=== PATIENT | male | born 1950 | race Caucasian/White ===

== ENCOUNTER 2018-09-03 22:04 | Inpatient (IN) | payer MEDICARE, OTHER ==
--- NOTE | 2018-09-03 22:48 | ED Physician Chart ---
ED Chief Complaint/HPI - Patient Information Date Seen:: 09/03/18 Time Seen:: 22:40 Chief Complaint:: increased agitation History of Present Illness:: Patient is apparently been demonstrating increased agitation at his extended care facility Allergies:: Allergies Allergy/AdvReac Type Severity Reaction Status Date / Time iodine Allergy Verified 09/03/18 22:17 Sulfa (Sulfonamide Allergy Verified 09/03/18 22:17 Antibiotics) Vitals:: Vital Signs - 8 hr 09/03/18 22:05 Temp 98.2 F HR 104 RR 18 BP 118/69 O2 Sat % 97 Historian:: Patient Review:: Transfer documents Reviewed ED Review of Systems - Review of Systems General/Constitutional: No fever, No chills, No weight loss, No weakness, No diaphoresis, No edema, No loss of appetite Skin: No skin lesions, No rash, No bruising Head: No headache, No light-headedness Eyes: No loss of vision, No pain, No diplopia ENT: No earache, No nasal drainage, No sore throat, No tinnitus Neck: No neck pain, No swelling, No thyromegaly, No stiffness, No mass noted Cardio Vascular: No chest pain, No palpitations, No PND, No orthopnea, No edema Pulmonary: No SOB, No cough, No sputum, No wheezing GI: No nausea, No vomiting, No diarrhea, No pain, No melena, No hematochezia, No constipation, No hematemesis G/U: No dysuria, No frequency, No hematuria Musculoskeletal: No bone or joint pain, No back pain, No muscle pain Endocrine: No polyuria, No polydipsia Psychiatric: Prior psych history, No depression, No anxiety, No suicidal ideation Hematopoietic: No bruising, No lymphadenopathy Allergic/Immuno: No urticaria, No angioedema Neurological: No syncope, No focal symptoms, No weakness, No paresthesia, No headache, No seizure, No dizziness, No confusion, No vertigo ED Past Medical History - Past Medical History Past Medical History: Other (atherosclerotic heart disease; status post urinary tract infection; unstable angina; psychosis; 9 prostatic hypertrophy; as her heart failure; osteoarthritis; :; Striated; anxiety; insomnia; COPD; her; IV; major depression; hypertension; chronic atrial fibrillation; that is post myocardial infarction) Family History: Heart disease Social History: Non Smoker, Other (drank alcohol formerly) Surgical History: other (respiratory artery stents) Psychiatricy History: Depression, Bipolar Medication: Reviewed Family Medical History - Family Member Mother History Unknown: Yes ED Physical Exam - Physical Examination General/Constitutional: Awake, Well-developed, well-nourished, Alert, No distress, GCS 15, Non-toxic appearing, Ambulatory Other Gen/Cons comments:: Patient is alert and oriented to near the exact date Head: Atraumatic Eyes: Lids, conjuctiva normal, PERRL, EOMI Skin: Nl inspection, No rash, No skin lesions, No ecchymosis, Well hydrated, No lymphadenopathy ENMT: External ears, nose nl, Nasal exam nl, Lips, teeth, gums nl Neck: Nontender, Full ROM w/o pain, No JVD, No nuchal rigidity, No bruit, No mass, No stridor Respiratory: Nl effort/Exclusion, Clear to Auscultation, No Wheeze/Rhonchi/Rales Cardio Vascular: RRR, No murmur, gallop, rubs, NL S1 S2 GI: No tenderness/rebounding/guarding, No organomegaly, No hernia, Normal BS's, Nondistended, No mass/bruits, No McBurney tenderness : No CVA tenderness Extremities: No tenderness or effusion, Full ROM, normal strength in all extremities, Normal digits & nails Other Extremities comments:: 2 out of 4 pretibial pitting edema Neuro/Psych: Alert/oriented, DTR's symmetric, Normal sensory exam, Normal motor strength, Judgement/insight normal, Mood normal, Normal gait, No focal deficits Misc: Normal back, No paraspinal tenderness ED Labs/Radiology/EKG Results - Lab Results Results: Abnormal Lab Results 09/03/18 09/03/18 23:05 23:05 WBC 10.1 RBC 4.44 Hgb 12.8 Hct 40.0 L MCV 90.1 MCH 28.8 MCHC Differential 32.0 RDW 15.0 Plt Count 200 MPV 8.9 Neutrophils % 62.2 Lymphocytes % 25.1 Monocytes % 8.0 Eosinophils % 4.1 Basophils % 0.6 Sodium 139 Potassium 4.0 Chloride 102 Carbon Dioxide 27.6 Anion Gap 13.4 BUN 32 H Creatinine 1.4 H Est GFR ( Amer) > 60.0 Est GFR (Non-Af Amer) 53.6 BUN/Creatinine Ratio 22.9 Glucose 131 H Calcium 9.2 Total Bilirubin 0.5 AST 22 ALT 14 Alkaline Phosphatase 145 H Total Protein 6.9 Albumin 3.3 L Globulin 3.6 Albumin/Globulin Ratio 0.9 L Triglycerides 98 Cholesterol 113 LDL Cholesterol Direct 70 L HDL Cholesterol 26 Salicylates < 25.0 L Acetaminophen < 10.0 L Ethyl Alcohol < 10 - EKG Interpretations Rate & Rhythm: atrial fibrillation with a rate of 84 [place]: normal ED Septic Shock - . Is Septic Shock (SBP<90, OR Lactate>4 mmol\L) present?: No - <6hrs of presentation: Vital Signs: Vital Signs - 8 hr 09/03/18 22:05 Temp 98.2 F HR 104 RR 18 BP 118/69 O2 Sat % 97 ED Reassessment (Disposition) - Diagnosis Diagnosis:: Aggressive behavior; atrial fibrillation - Patient Disposition Admitted to:: [facility] Admitting Medical Physician:: Guido Banerjee Admitting Psych Physician:: Noé Dallas Condition at Disposition:: Stable, Unchanged
[2018-09-03 23:12] LABS: % BASOPHILS 0.6 % (0.0-2.0); % EOSINOPHILS 4.1 % (0.0-5.0); % LYMPHOCYTES 25.1 % (20.0-50.0); % NEUTROPHILS 62.2 % (40.0-80.0); BASOPHILE ABSOLUTE 0.1 Th/cumm (0-0.2); EOSINOPHILE ABSOLUTE 0.4 Th/cmm (0.1-0.4); HEMOGLOBIN 12.8 gm/dL (12-16); LYMPHOCYTE ABSOLUTE 2.5 Th/cmm (1.5-3.0); MEAN CELL VOLUME 90.1 fl (80-99); MEAN CORPUSCULAR HEMOGLOBIN 28.8 pg (27.0-31.0); MEAN PLATELET VOLUME 8.9 fl; MONOCYTE ABSOLUTE 0.8 Th/cmm (0.3-1.0); NEUTROPHILE ABSOLUTE 6.3 Th/cmm (1.8-8.0); PLATELET COUNT 200 Th/cmm (150-400); RED BLOOD COUNT 4.44 Mil/cmm (3.80-5.80); WHITE BLOOD COUNT 10.1 Th/cmm (4.8-10.8)
[2018-09-03 23:33] LABS: ALB/GLOB RATIO 0.9 (1.0-1.8); ALBUMIN 3.3 gm/dL (4.2-5.5); ALKALINE PHOSPHATASE 145 U/L (34-104); ANION GAP 13.4 (7.0-16.0); BILIRUBIN,TOTAL 0.5 mg/dL (0.3-1.0); BUN - UREA NITROGEN 32 mg/dL (7-25); CALCIUM SERUM 9.2 mg/dL (8.6-10.3); CARBON DIOXIDE 27.6 mEq/L (21.0-31.0); CHLORIDE 102 mEq/L (98-107); CHOLESTEROL 113 mg/dL (<200); CREATININE - SERUM 1.4 mg/dL (0.7-1.3); GFR AFRICAN-AMERICAN > 60.0 ml/min (>90); GFR NON AFRICAN-AMERICAN 53.6 ml/min; GLUCOSE 131 mg/dL (70-105); HDL -HIGH DENSITY LIPOPROTEIN 26 mg/dL (23-92); SGOT 22 U/L (13-39); SGPT/ALT 14 U/L (7-52); SODIUM SERUM 139 mEq/L (136-145); TOTAL PROTEIN,SERUM 6.9 gm/dL (6.0-8.3); TRIGLYCERIDES 98 mg/dL (<150)
[2018-09-03 23:35] LABS: ACETAMINOPHEN < 10.0 ug/mL (10.0-30.0); SALICYLATES (ASPIRIN) < 25.0 mg/L (30.0-100.0)
[2018-09-04 01:52] VITALS: BP 104/73
[2018-09-04] MEDS: DICLOFENAC 0.1% RIGHT EYE SCH ×4 (08:59→20:55)
[2018-09-04] MEDS: Ferrous Sulfate 325 MG TAB PO SCH (08:59)
[2018-09-04] MEDS ORDERED: Non-Formulary Item 1 EA (Cranberry [Cranberry] 450 MG) PO SCH (09:00)
[2018-09-04] MEDS: Polyvinyl Alcohol Ophth Soln 15 mL Bottle EACH EYE SCH ×2 (09:00→17:22)
[2018-09-04] MEDS ORDERED: Non-Formulary Item 1 EA (Apixaban [Eliquis] 5 MG) PO SCH (09:00)
[2018-09-04] MEDS: INSULIN LISPRO 100 UNIT/ML VIAL SUBQ SCH ×3 (12:21→20:50)
--- NOTE | 2018-09-04 12:46 | History & Physical ---
ADMIT DATE: 09/03/2018 IDENTIFYING INFORMATION: The patient is a 68-year-old years old male. CHIEF COMPLAINT: "I have shoulder pain." HISTORY OF PRESENT ILLNESS: The patient was referred from a nursing facility because of agitation. The patient was a poor historian. He knew he came from a nursing facility, but he believes he is here because of his shoulder pain. He is unpredictable, impulsive, demented, confused, though he is able to tell me the date, being either 09/06/2018 or 09/07/2018. He does not know the reason why he is here. He knows he is in the hospital because of shoulder pain. He believes he came from [facility] and that he lives there with his . He admits, however, to hearing voices. He said his sleep and appetite varies. He was smelly, looking disheveled, disorganized, internally preoccupied. PAST PSYCHIATRIC HISTORY: Dementia, unable to give more information. MEDICAL HISTORY: Atrial fibrillation. ALLERGIES: THE PATIENT IS ALLERGIC TO IODINE, SULFA ANTIBIOTICS. FAMILY AND SOCIAL HISTORY: The patient has been twice, recently for 6 months. He said he has 3 children. Unable to tell me the ages. He is unable to tell me what he did for living. 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 Denies substance abuse; ____, stopped it 5 years ago; however, he is a poor historian. Denies family psychotic disorder. MENTAL STATUS EXAMINATION: The patient is appropriately dressed, not very well groomed. He was smelly. He was alert. He was able tell me the date roughly and he was able to tell me his age, but he admits to hearing voices, nonspecific. No command hallucinations, unable to tell me the cmo & president. Concentration is poor. Unable to answer questions appropriately at times and spell his name. His insight about his illness is poor. He believes he is here because of shoulder pain. Judgment is poor. He has agitation. IMPRESSION: Bipolar disorder with psychosis. MEDICAL DIAGNOSES: Diabetes mellitus, hyperlipidemia, anemia, chronic pain, degenerative joint disease, gout. PLAN: The patient will be continued with medication. We will adjust medication as needed. He is on Seroquel and Lexapro. We will do group therapy, milieu therapy, and individual therapy. ESTIMATED LENGTH OF STAY: 3-7 days. DISCHARGE CRITERIA: Decreasing psychosis, agitation. After discharge, outpatient treatment. JOB# [id number]
[2018-09-04] MEDS ORDERED: Albuterol/Ipratropium Neb 3 ML AERS HHN PRN (13:47)
--- NOTE | 2018-09-04 14:23 | History & Physical ---
ADMIT DATE: 09/04/2018 This is the coverage for Dr. Guido Banerjee. REASON FOR CONSULTATION: Include multiple medical problems including chronic obstructive pulmonary disease, congestive heart failure, hypertension with chronic kidney disease stage 3, hyperlipidemia, gastroesophageal reflux disease, benign prostatic hypertrophy, dementia, psychosis, old [place], anxiety, and gout. HISTORY OF PRESENT ILLNESS: The patient is a 68-year-old gentleman, resident of [facility], admitted to the Geropsych Unit, and medical consultation requested by Dr. Dallas for multiple medical problems as mentioned above. The patient is currently lying in a bed. He denies any headache, no chest pain, no abdominal pain. The patient denies any leg pain and leg appear slightly edematous. The patient denies any palpitation passing out. Appetite is fair and denies any nausea, vomiting, diarrhea, or melena. No hematuria. No bright red blood per rectum. No rashes. No joint pain or swelling. PAST MEDICAL HISTORY: As mentioned above. ALLERGIES: IODINE AND SULFA. MEDICATIONS: Include allopurinol 100 mg once a day, Lipitor 60 mg at bedtime, Plavix 75 once a day, Voltaren eye drops twice a day, Colace 100 mg twice a day, Lexapro 40 mg once a day, iron 325 mg once a day, Nystop powder twice a day, and Seroquel 50 mg twice a day. FAMILY HISTORY: Noncontributory. REVIEW OF SYSTEMS: See the history of presenting illness. PHYSICAL EXAMINATION: VITAL SIGNS: Height 1.68 meter, weight 81.6 kg, BMI 29.1, temperature 97.8, afebrile, pulse 86 and regular, respiratory rate is 20, blood pressure 110/73, room air oxygen saturation 98%. HEENT: Unremarkable. NECK: Short and thick. LUNGS: Clear. CARDIOVASCULAR: S1, S2 normal limit. ABDOMEN: Obese, otherwise benign. EXTREMITIES: 1+ edema noted. Dorsalis pedis palpable. CENTRAL NERVOUS SYSTEM: No clubbing, cyanosis, or synovitis. LABORATORY TESTS: WBC 10,000, hemoglobin is 12.8, MCV 90, and a platelet count of 200,000, neutrophils 62% neutrophils, 62%. Sodium 139, potassium 4.0, chloride 102, bicarbonate 27, BUN 32, creatinine 1.4 and a glucose of 131, calcium 9.2, albumin 3.3. Cholesterol 113, triglyceride 98, HDL 26, LDL 113. TSH normal at 1.5. Serum salicylic and atenolol level and alcohol level are all essentially not detectable. ASSESSMENT AND PLAN: 1. Chronic obstructive pulmonary disease, currently stable on duoneb HHN 2. Congestive heart failure, currently compensated on lasix 3. Hypertension with chronic kidney disease continous current treatments 4. Clinical monitoring. 5. Hyperlipidemia. Continue Lipitor 60 once a day. 6. Dementia with psychosis. Further plan per Dr. Dallas. 7. Benign prostatic hypertrophy. Monitor urine output.cont flowmax and proscar 8. Gastroesophageal reflux, currently stable on protonix 40mg po q day 9. Gout. Continue allopurinol 100 once a day. 10. Exogenous obesity with a BMI 29.1. Continue to reduce calorie diet. Dr. Banerjee will follow this patient from 1014. JOB# [id number] MTDD
[2018-09-04] MEDS ORDERED: INSULIN LISPRO 100 UNIT/ML VIAL SUBQ SCH (17:00)
[2018-09-04] MEDS: Atorvastatin Calcium 10 MG TAB PO SCH (20:50)
[2018-09-05] MEDS: Pantoprazole 40 mg EC Tab PO SCH (06:43)
[2018-09-05] MEDS: INSULIN LISPRO 100 UNIT/ML VIAL SUBQ SCH (06:44)
[2018-09-05] MEDS: DICLOFENAC 0.1% RIGHT EYE SCH ×4 (08:00→21:01)
[2018-09-05] MEDS: Multivitamin w/ Minerals Tab PO SCH (09:21)
[2018-09-05] MEDS: Ferrous Sulfate 325 MG TAB PO SCH (09:25)
[2018-09-05] MEDS: Potassium Chloride 20 mEq ER Tab PO SCH ×2 (09:25→09:26)
[2018-09-05] MEDS: Insulin Detemir 100 units/mL 10mL Vial SUBQ SCH (09:55)
[2018-09-05] MEDS: Rivastigmine 9.5 mg/24 hr Tdm TD SCH (10:20)
[2018-09-05] MEDS: INSULIN ASPART, RECOMBINANT 100 UNITS/ML SUBQ SCH ×2 (10:21→17:31)
[2018-09-05] MEDS: Polyvinyl Alcohol Ophth Soln 15 mL Bottle EACH EYE SCH ×2 (10:40→17:50)
[2018-09-05] MEDS: INSULIN ASPART SLIDING SCALE 100 UNITS/ML UNIT SUBQ SCH ×3 (12:32→21:02)
[2018-09-05] MEDS: NYSTATIN 100000 UNITS/GM POWD TP PRN (13:08)
[2018-09-05] MEDS: Atorvastatin Calcium 10 MG TAB PO SCH (21:01)
--- NOTE | 2018-09-06 01:06 | Progress Notes ---
DATE: 09/05/2018 SUMMARY: Case was discussed with staff of the patient and reviewed records. The patient continues to be internally preoccupied. He continues to be unable to tell me why he is here. He believes he was here because of shoulder pain. He is demented, confused, unpredictable, impulsive, and unable to make safe plan for his self-care. He is demented and confused. He has been compliant with the medication with no side effects, no sedation, no nausea, and no extrapyramidal symptoms. He is on Seroquel 50 mg twice a day. We will continue to have the patient in group therapy, milieu therapy, and adjust the medications as needed. JOB# [id number]
[2018-09-06] MEDS: INSULIN ASPART SLIDING SCALE 100 UNITS/ML UNIT SUBQ SCH ×4 (06:39→20:55)
[2018-09-06] MEDS: Pantoprazole 40 mg EC Tab PO SCH (06:39)
[2018-09-06] MEDS: INSULIN ASPART, RECOMBINANT 100 UNITS/ML SUBQ SCH ×2 (08:34→17:30)
[2018-09-06] MEDS: Multivitamin w/ Minerals Tab PO SCH (10:00)
[2018-09-06] MEDS: Polyvinyl Alcohol Ophth Soln 15 mL Bottle EACH EYE SCH ×2 (10:00→17:29)
[2018-09-06] MEDS: Ferrous Sulfate 325 MG TAB PO SCH (10:00)
[2018-09-06] MEDS: DICLOFENAC 0.1% RIGHT EYE SCH ×4 (10:00→21:26)
[2018-09-06] MEDS: Insulin Detemir 100 units/mL 10mL Vial SUBQ SCH (10:00)
[2018-09-06] MEDS: Potassium Chloride 20 mEq ER Tab PO SCH (10:00)
[2018-09-06] MEDS: Rivastigmine 9.5 mg/24 hr Tdm TD SCH (10:04)
[2018-09-06] MEDS: NYSTATIN 100000 UNITS/GM POWD TP PRN (17:29)
[2018-09-06] MEDS: Atorvastatin Calcium 10 MG TAB PO SCH (20:38)
--- NOTE | 2018-09-06 21:16 | Progress Notes ---
DATE: 09/06/2018 Case was discussed with staff of the patient, reviewed records. The patient continues to be unpredictable, impulsive. He continues to not know why he is here. Continues to have poor insight. Unable to make safe plan for self-care with episodes of agitation and irritability. He is compliant with the medication with no side effects, no sedation, no nausea, no extrapyramidal symptoms. He is on Lexapro and Seroquel 50 mg twice a day and Exelon patch 9.5 mg every 24 hours. We will continue to work with the patient in group therapy, milieu therapy, and adjust the medications as needed. JOB# [id number]
[2018-09-07] MEDS: Pantoprazole 40 mg EC Tab PO SCH (06:43)
[2018-09-07] MEDS: INSULIN ASPART SLIDING SCALE 100 UNITS/ML UNIT SUBQ SCH ×4 (06:49→20:50)
[2018-09-07] MEDS: Potassium Chloride 20 mEq ER Tab PO SCH (09:13)
[2018-09-07] MEDS: Ferrous Sulfate 325 MG TAB PO SCH (09:13)
[2018-09-07] MEDS: Multivitamin w/ Minerals Tab PO SCH (09:15)
[2018-09-07] MEDS: Polyvinyl Alcohol Ophth Soln 15 mL Bottle EACH EYE SCH ×2 (09:17→16:41)
[2018-09-07] MEDS: INSULIN ASPART, RECOMBINANT 100 UNITS/ML SUBQ SCH ×2 (09:38→16:47)
[2018-09-07] MEDS: Insulin Detemir 100 units/mL 10mL Vial SUBQ SCH (09:39)
[2018-09-07] MEDS: Rivastigmine 9.5 mg/24 hr Tdm TD SCH (09:40)
[2018-09-07] MEDS: DICLOFENAC 0.1% RIGHT EYE SCH ×4 (09:40→21:00)
--- NOTE | 2018-09-07 16:07 | Progress Notes ---
DATE: 09/07/2018 MEDICAL PROGRESS NOTE IDENTIFICATION: A 68-year-old. SUBJECTIVE: The patient seen and examined. The patient was admitted on 09/04/2018 for psychotic disorder exacerbation at this time. The patient has medical problem. The patient has periods of agitation and irritability, which required adjustment of his psychotropic medication. The patient does have significant medical problem. Discussed with nursing staff about their concerns. MEDICATIONS: Medication administration record has been reviewed. PHYSICAL EXAMINATION: VITAL SIGNS: Temperature 98.50, pulse is 105, respiratory rate 16, and blood pressure 104/67. HEENT: No facial asymmetry. NECK: Supple, no JVD. HEART: Regular. CHEST AND LUNGS: Equal in expansion, no expiratory wheezing. ABDOMEN: Soft. No guarding. No rigidity. Liver, spleen palpable. No palpable mass. EXTREMITIES: No edema, no cyanosis. NEUROLOGIC: Alert, awake, follows commands. CLINICAL IMPRESSION: 1. Psychotic disorder exacerbation. 2. Alzheimer's type dementia. 3. Benign prostatic hypertrophy. 4. Coronary artery disease. 5. Hypertension. 6. Hyperlipidemia. 7. Seizure disorder. 8. Diabetes mellitus. 9. Degenerative joint disease. 10. Congestive heart failure. 11. Depression. 12. Gout. PLAN: 1. Psychotic evaluation and management deferred to psychiatrist. 2. Continue Exelon as prescribed. 3. PRN inhalation therapy. 4. Lasix since report of congestive heart failure, which is well compensated. Continue Zyloprim for the gout. Continue Lipitor for hyperlipidemia. Continue provide medical management for coronary artery disease, which includes Plavix, beta nirmala as well as Imdur. Continue to provide Proscar and Flomax for BPH, diabetes management with sliding scale insulin and basal insulin therapy. 5. Continue to provide seizure medication and seizure precautions, general nursing care, fall precautions, nutritional support, and we will continue to follow this patient during the stay in the hospital. JOB# [id number]
[2018-09-07] MEDS: Atorvastatin Calcium 10 MG TAB PO SCH (20:40)
[2018-09-08 06:27] LABS: % BASOPHILS 0.7 % (0.0-2.0); % EOSINOPHILS 3.6 % (0.0-5.0); % LYMPHOCYTES 29.4 % (20.0-50.0); % MONOCYTES 10.8 % (2.0-10.0); % NEUTROPHILS 55.5 % (40.0-80.0); BASOPHILE ABSOLUTE 0.1 Th/cumm (0-0.2); EOSINOPHILE ABSOLUTE 0.3 Th/cmm (0.1-0.4); HEMATOCRIT 40.9 % (41.0-60); HEMOGLOBIN 13.3 gm/dL (12-16); LYMPHOCYTE ABSOLUTE 2.9 Th/cmm (1.5-3.0); MEAN CELL VOLUME 89.2 fl (80-99); MEAN CORPUSCULAR HGB CONC 32.5 pg (28.0-36.0); MEAN PLATELET VOLUME 9.3 fl; NEUTROPHILE ABSOLUTE 5.4 Th/cmm (1.8-8.0); PLATELET COUNT 175 Th/cmm (150-400); RED BLOOD COUNT 4.58 Mil/cmm (3.80-5.80); WHITE BLOOD COUNT 9.7 Th/cmm (4.8-10.8)
[2018-09-08 06:39] LABS: ALB/GLOB RATIO 0.9 (1.0-1.8); ALBUMIN 3.4 gm/dL (4.2-5.5); ALKALINE PHOSPHATASE 167 U/L (34-104); BILIRUBIN,TOTAL 0.6 mg/dL (0.3-1.0); BUN - UREA NITROGEN 29 mg/dL (7-25); CALCIUM SERUM 9.5 mg/dL (8.6-10.3); CARBON DIOXIDE 26.9 mEq/L (21.0-31.0); CHLORIDE 103 mEq/L (98-107); CREATININE - SERUM 1.4 mg/dL (0.7-1.3); GFR AFRICAN-AMERICAN > 60.0 ml/min (>90); GFR NON AFRICAN-AMERICAN 53.6 ml/min; GLUCOSE 144 mg/dL (70-105); POTASSIUM SERUM 3.9 mEq/L (3.5-5.1); SGOT 21 U/L (13-39); SGPT/ALT 14 U/L (7-52); SODIUM SERUM 139 mEq/L (136-145)
[2018-09-08] MEDS: Pantoprazole 40 mg EC Tab PO SCH (06:39)
[2018-09-08] MEDS: INSULIN ASPART SLIDING SCALE 100 UNITS/ML UNIT SUBQ SCH ×4 (07:30→20:36)
[2018-09-08] MEDS: Rivastigmine 9.5 mg/24 hr Tdm TD SCH (09:00)
[2018-09-08] MEDS: INSULIN ASPART, RECOMBINANT 100 UNITS/ML SUBQ SCH ×2 (09:00→16:47)
[2018-09-08] MEDS: Insulin Detemir 100 units/mL 10mL Vial SUBQ SCH (09:18)
[2018-09-08] MEDS: Potassium Chloride 20 mEq ER Tab PO SCH (09:48)
[2018-09-08] MEDS: Ferrous Sulfate 325 MG TAB PO SCH (09:49)
[2018-09-08] MEDS: Multivitamin w/ Minerals Tab PO SCH (09:54)
[2018-09-08] MEDS: Polyvinyl Alcohol Ophth Soln 15 mL Bottle EACH EYE SCH ×2 (10:03→16:35)
[2018-09-08] MEDS: DICLOFENAC 0.1% RIGHT EYE SCH ×4 (10:45→21:00)
[2018-09-08] MEDS ORDERED: Acetaminophen 500 MG TAB PO PRN (14:43)
[2018-09-08] MEDS: Atorvastatin Calcium 10 MG TAB PO SCH (20:29)
--- NOTE | 2018-09-08 22:06 | Progress Notes ---
DATE: 09/07/2018 SUBJECTIVE: Chart reviewed and the patient interviewed. Also discussed the patient's condition with the staff and reviewed records and labs. The patient is still guarded and is still withdrawn. The patient also is still suspicious and has been paranoid. He also still needs lots of redirections. Otherwise, the patient is compliant with taking his medications. ASSESSMENT: The patient is still agitated and irritable and unable to provide any safe plan for self-care. TREATMENT PLAN: Continue to monitor his behavior and his condition closely. The patient also continued to take Lexapro and will adjust the dose because it is seemed that he is taking high dose of Lexapro and is not clear to me the reason. Also, we will continue to monitor his behavior closely. Also, continue Seroquel in a dose of 50 mg at bedtime as well as Exelon patch. JOB# [id number]
--- NOTE | 2018-09-08 23:52 | Progress Notes ---
DATE: 09/08/2018 Case was discussed with staff of the patient, reviewed records. The patient continues to be confused, easily agitated. Continues to have poor insight, unable to make safe plan for self-care. He is compliant with the medication with no side effects. Continues to have constant redirection and help with his ADLs. We will continue outpatient group therapy, milieu therapy, and adjust medications as needed. [facility]# [id number]
[2018-09-09] MEDS: Pantoprazole 40 mg EC Tab PO SCH (06:42)
[2018-09-09] MEDS: INSULIN ASPART SLIDING SCALE 100 UNITS/ML UNIT SUBQ SCH ×4 (06:46→21:11)
--- NOTE | 2018-09-09 07:06 | Progress Notes ---
DATE: 09/08/2018 SUBJECTIVE: The patient is seen and examined. No new event. Medication admission record is reviewed. OBJECTIVE: VITAL SIGNS: Temperature 97, pulse is 100, respiratory rate is 18, blood pressure is 138/84. HEENT: No facial asymmetry. NECK: Supple, no JVD. HEART: Regular. CHEST AND LUNGS: Equal in expansion, no expiratory wheezing. ABDOMEN: Soft. EXTREMITIES: No edema. Left shoulder has range of motions are limited and painful. AVAILABLE DIAGNOSTIC DATA: BUN and creatinine is 20 and 1.4. Glucoscan is reviewed. CBC is within normal limit. Chemistry panels are within normal limit. CLINICAL IMPRESSION: 1. Left shoulder pain. 2. Chronic kidney disease. 3. Diabetes mellitus. 4. Psychotic disorder exacerbation. 5. Degenerative joint disease. 6. Alzheimer's type dementia. 7. Benign prostatic hypertrophy. 8. Seizure disorder. 9. Congestive heart failure. 10. Depression. PLAN: Chronic kidney disease, remains stable. The patient does not need any acute intervention at this time as far as the left shoulder pain is concerned. We will obtain the x-rays of the left shoulder and pain management will be provided as well. The patient is to have continuation of other medication for his chronic illness as prescribed. Psychotic evaluation and management deferred to psychiatrist. The patient due to have seizure precautions for his underlying seizure medication as well as diabetes management with the Levemir insulin and sliding scale insulin. JOB# [id number]
--- NOTE | 2018-09-09 09:38 | Diagnostic Imaging Report ---
Left shoulder 2 views Indication: pain Comparison: none Findings: There is an impacted fracture of the left humeral head and neck which may extend to the articular surface. No gross dislocation. Degenerative changes are seen greatest at the AC joint. Mild surrounding soft tissue swelling is noted. Impression: Impacted fracture left humeral head and neck which may extend to the articular surface.
[2018-09-09] MEDS: Insulin Detemir 100 units/mL 10mL Vial SUBQ SCH (09:55)
[2018-09-09] MEDS: Multivitamin w/ Minerals Tab PO SCH (09:56)
[2018-09-09] MEDS: Potassium Chloride 20 mEq ER Tab PO SCH (09:57)
[2018-09-09] MEDS: INSULIN ASPART, RECOMBINANT 100 UNITS/ML SUBQ SCH ×2 (09:58→18:00)
[2018-09-09] MEDS: Rivastigmine 9.5 mg/24 hr Tdm TD SCH ×2 (09:58→10:00)
[2018-09-09] MEDS: Ferrous Sulfate 325 MG TAB PO SCH (09:58)
[2018-09-09] MEDS: Polyvinyl Alcohol Ophth Soln 15 mL Bottle EACH EYE SCH ×2 (09:58→17:11)
[2018-09-09] MEDS: DICLOFENAC 0.1% RIGHT EYE SCH ×4 (09:58→21:11)
[2018-09-09] MEDS: Atorvastatin Calcium 10 MG TAB PO SCH (21:11)
--- NOTE | 2018-09-09 21:24 | Progress Notes ---
DATE: 09/09/2018 PSYCHIATRIC PROGRESS NOTE SUBJECTIVE: Chart reviewed and the patient interviewed. Also discussed the patient's condition with the staff and reviewed records and labs. The patient is still confused and he is oriented to himself only. The patient also is still guarded and withdrawn and seems to be depressed. The patient also is compliant with taking his medications, but it seems that he has been taking a large amount of the Lexapro, which he is taking 40 mg a day, that might be part of his confusion because of high serotonin levels. At the same time, the patient is severely anxious. ASSESSMENT: The patient is still confused and anxious. TREATMENT PLAN: We will decrease Lexapro to 20 mg every day and continue Seroquel 50 mg twice a day. Also, we will add buspirone 5 mg twice a day and will continue to follow up. JOB# [id number]
--- NOTE | 2018-09-09 22:55 | Progress Notes ---
DATE: 09/09/2018 SUBJECTIVE: The patient seen and examined. The patient is lying in the bed. The patient has no new event. X-rays of the left shoulder revealed impacted fracture of left humerus, head and neck, which was extended to the articular surface. The patient has limited pain. It seems the patient's pain has been longstanding. PHYSICAL EXAMINATION: Today's exam; VITAL SIGNS: Temperature 97.8, pulse is 100, respiratory rate 20, and blood pressure 120/68. HEENT: No facial asymmetry. NECK: Supple, no JVD. HEART: Regular. CHEST AND LUNGS: Equal in expansion, no expiratory wheezing. ABDOMEN: Soft. EXTREMITIES: No edema. CLINICAL IMPRESSION: 1. Left shoulder pain secondary to impacted fracture of left humeral head and neck. 2. Chronic obstructive pulmonary disease. 3. Diabetes mellitus. 4. Psychotic disorder. 5. Degenerative joint disease. 6. Chronic kidney disease. 7. Benign prostatic hypertrophy. 8. Seizure disorder. PLAN: Orthopedic consultation in the view of her fracture of left humeral head and neck. Continue to provide disease management for his underlying chronic illnesses. Psychotic evaluation and management deferred to psychiatrist. We will continue to follow this patient during the stay in the hospital. JOB# [id number]
[2018-09-10] MEDS: INSULIN ASPART SLIDING SCALE 100 UNITS/ML UNIT SUBQ SCH ×4 (06:32→21:26)
[2018-09-10] MEDS: Pantoprazole 40 mg EC Tab PO SCH (06:32)
[2018-09-10] MEDS: Rivastigmine 9.5 mg/24 hr Tdm TD SCH (08:23)
[2018-09-10] MEDS: Insulin Detemir 100 units/mL 10mL Vial SUBQ SCH (08:24)
[2018-09-10] MEDS: Ferrous Sulfate 325 MG TAB PO SCH (08:28)
[2018-09-10] MEDS: Potassium Chloride 20 mEq ER Tab PO SCH (08:33)
[2018-09-10] MEDS: Multivitamin w/ Minerals Tab PO SCH (08:33)
[2018-09-10] MEDS: INSULIN ASPART, RECOMBINANT 100 UNITS/ML SUBQ SCH ×2 (08:34→17:12)
[2018-09-10] MEDS: DICLOFENAC 0.1% RIGHT EYE SCH ×4 (08:34→21:17)
[2018-09-10] MEDS: Polyvinyl Alcohol Ophth Soln 15 mL Bottle EACH EYE SCH ×2 (10:00→16:34)
[2018-09-10] MEDS: Atorvastatin Calcium 10 MG TAB PO SCH (20:41)
--- NOTE | 2018-09-10 21:13 | Progress Notes ---
DATE: 09/10/2018 SUBJECTIVE: The patient seen and examined. The patient is sitting in dining area. The patient has minimal pain on his left shoulder, does admit he had a fall many months ago. The patient does not recall any evaluation. The patient currently denies any chest pain or shortness of breath or palpitation or dizziness. OBJECTIVE: VITAL SIGNS: Temperature 97.5, pulse is 88, respiratory rate 16, blood pressure 112/71. HEENT: No facial asymmetry. NECK: Supple, no JVD. HEART: Regular. CHEST AND LUNGS: Equal in expansion, no expiratory wheezing. ABDOMEN: Soft. No guarding, no rigidity. Bowel sounds present. No palpable mass. EXTREMITIES: No edema. Restricted painful movement on the left shoulder noted. CLINICAL IMPRESSION: 1. Fracture left shoulder. Suspect chronic injury since the patient had a fall a month ago. 2. Coronary artery disease. 3. Hypertension. 4. Hyperlipidemia. 5. Seizure disorder. 6. Diabetes. 7. Degenerative joint disease. 8. Depression. 9. Congestive heart failure. 10. Gout. 11. Psychotic disorder exacerbation. PLAN: Await Orthopedic evaluation. The patient may need nothing at this time since injury. This happened 1 month ago. The patient will provide pain management for now. Continue to repair it now. Continue to provide precautions with seizure medications, monitoring the blood sugar, chronic disease management of coronary artery disease, hypertension, hyperlipidemia along with diabetes and gout as ordered. We will continue to follow nutritional support and fall precautions. Care plan reviewed and discussed with staff. JOB# [id number]
--- NOTE | 2018-09-11 06:43 | Progress Notes ---
DATE: 09/10/2018 PSYCHIATRIC PROGRESS NOTE SUBJECTIVE: Chart reviewed and the patient interviewed. Also discussed the patient's condition with the staff and reviewed records and labs. The patient is still easily agitated and he is still confused and in irritable mood. The patient also is restless and he still needs lots of redirections. The patient also is interacting minimally with others. Otherwise, the patient has continued to comply with taking his medications with no side effect of medications, although I decreased Lexapro yesterday to 20 mg every day instead of 40. ASSESSMENT: The patient is still irritable and confused. TREATMENT PLAN: Continue to monitor his behavior and condition closely. Also, continue adjusting psychotropic medications and working on behavioral modification. JOB# [id number]
[2018-09-11] MEDS: INSULIN ASPART SLIDING SCALE 100 UNITS/ML UNIT SUBQ SCH ×4 (06:45→21:48)
[2018-09-11] MEDS: Pantoprazole 40 mg EC Tab PO SCH (06:46)
[2018-09-11] MEDS: DICLOFENAC 0.1% RIGHT EYE SCH ×4 (09:00→21:49)
[2018-09-11] MEDS: INSULIN ASPART, RECOMBINANT 100 UNITS/ML SUBQ SCH (09:00)
[2018-09-11] MEDS: Insulin Detemir 100 units/mL 10mL Vial SUBQ SCH (09:00)
[2018-09-11] MEDS: Rivastigmine 9.5 mg/24 hr Tdm TD SCH (09:00)
[2018-09-11] MEDS: Potassium Chloride 20 mEq ER Tab PO SCH (09:46)
[2018-09-11] MEDS: Ferrous Sulfate 325 MG TAB PO SCH (09:57)
[2018-09-11] MEDS: Multivitamin w/ Minerals Tab PO SCH (09:58)
[2018-09-11] MEDS: Polyvinyl Alcohol Ophth Soln 15 mL Bottle EACH EYE SCH (11:45)
[2018-09-11] MEDS: Atorvastatin Calcium 10 MG TAB PO SCH (19:00)
[2018-09-12] MEDS: INSULIN ASPART SLIDING SCALE 100 UNITS/ML UNIT SUBQ SCH ×4 (06:50→20:06)
[2018-09-12] MEDS: Pantoprazole 40 mg EC Tab PO SCH (06:50)
[2018-09-12] MEDS: INSULIN ASPART, RECOMBINANT 100 UNITS/ML SUBQ SCH (09:08)
[2018-09-12] MEDS: Polyvinyl Alcohol Ophth Soln 15 mL Bottle EACH EYE SCH ×2 (09:09→17:05)
[2018-09-12] MEDS: DICLOFENAC 0.1% RIGHT EYE SCH ×4 (09:10→21:00)
[2018-09-12] MEDS: Potassium Chloride 20 mEq ER Tab PO SCH (09:18)
[2018-09-12] MEDS: Ferrous Sulfate 325 MG TAB PO SCH (09:19)
[2018-09-12] MEDS: Multivitamin w/ Minerals Tab PO SCH (09:19)
[2018-09-12] MEDS: Rivastigmine 9.5 mg/24 hr Tdm TD SCH (09:20)
[2018-09-12] MEDS: Insulin Detemir 100 units/mL 10mL Vial SUBQ SCH (09:25)
[2018-09-12] MEDS: Atorvastatin Calcium 10 MG TAB PO SCH (20:44)
--- NOTE | 2018-09-12 23:11 | Progress Notes ---
DATE: 09/12/2018 IDENTIFYING DATA: A 68-year-old male brought in here from a [place] [facility] for agitation. The patient is a poor historian. Today on [id number] evaluation, the patient continues to be confused reporting he does not know why he is here. Observed to be irritable and disengaged. He needs lot of redirection, restless, and minimally interactive with others. MENTAL STATUS EXAMINATION: Irritable, easily agitated, disorganized. ASSESSMENT AND PLAN: The patient is a 68-year-old male, who continues to be irritable, easily agitated, derails, unable to formulate a plan outside of structured environment. We will continue with current medication regimen, which includes rivastigmine, Seroquel, Lexapro, BuSpar. JOB# [id number]
--- NOTE | 2018-09-12 23:22 | Progress Notes ---
DATE: 09/12/2018 SUBJECTIVE: This is a 68-year-old male. The patient seen and examined. The patient is lying in the bed. No new event noted. The patient has been eating fairly well. The patient remained hemodynamically stable. PHYSICAL EXAMINATION: VITAL SIGNS: Temperature 97.6, pulse is 70, respiratory rate is 18, blood pressure 104/66. HEENT: No facial asymmetry. NECK: Supple, no JVD. HEART: Regular. CHEST: Lung equal in expansion with no expiratory wheezing. ABDOMEN: Soft. No guarding, no rigidity. Bowel sounds are present. No palpable mass. EXTREMITIES: No edema. Right shoulder has a limited range of motion. CLINICAL IMPRESSION: 1. Left shoulder pain secondary to impacted fracture of left humerus head and neck. Suspect chronic. 2. Chronic obstructive pulmonary disease. 3. Diabetes. 4. Psychotic disorder. 5. Seizure disorder. 6. Hypertension. 7. Benign prostatic hypertrophy. PLAN: 1. Pain management. 2. P.r.n. inhalation therapy. 3. Monitor blood sugar. 4. Sliding scale insulin. 5. Psych followup and psych management. 6. BP seizure medication. 7. Seizure precautions. 8. Antiplatelet therapy. 9. Care plan reviewed and discussed. JOB# [id number]
--- NOTE | 2018-09-13 02:44 | Progress Notes ---
DATE: 09/11/2018 SUBJECTIVE: Chart reviewed and the patient interviewed. Also, discussed the patient's condition with the staff and reviewed records and labs. The patient is irritable and restless and is still easily agitated. Also seems to be confused. Also, during my interview, minimum interaction and difficulty expressing himself or his feelings. Otherwise, the patient is compliant with taking medications with no side effect of medications. ASSESSMENT: The patient is still confused and needs close monitoring. TREATMENT PLAN: I decreased Lexapro to 20 mg which seems to be slightly helping the patient since I decreased it. He is still psychotic and needs close monitoring. JOB# [id number]
--- NOTE | 2018-09-13 06:54 | Progress Notes ---
DATE: 09/13/2018 SUBJECTIVE: The patient was seen and evaluated. The patient's chart reviewed. Covering for Dr. Dallas. Overnight, the patient continues to be easily restless, agitated. Today on [id number] evaluation, minimally interacting with my interview, disengaged, disengaged, confused, needing redirection. ASSESSMENT AND PLAN: Tolerating Lexapro to target the patient's symptoms of depression. We will continue with Seroquel as medications were recently adjusted on the 250 mg p.o. b.i.d. No side effects were noted. JOB# [id number]
[2018-09-13] MEDS: Pantoprazole 40 mg EC Tab PO SCH (06:55)
[2018-09-13] MEDS: INSULIN ASPART SLIDING SCALE 100 UNITS/ML UNIT SUBQ SCH ×4 (07:00→21:00)
[2018-09-13] MEDS: Ferrous Sulfate 325 MG TAB PO SCH (08:51)
[2018-09-13] MEDS: Multivitamin w/ Minerals Tab PO SCH (08:51)
[2018-09-13] MEDS: Potassium Chloride 20 mEq ER Tab PO SCH (08:56)
[2018-09-13] MEDS: DICLOFENAC 0.1% RIGHT EYE SCH ×4 (10:00→20:40)
[2018-09-13] MEDS: Polyvinyl Alcohol Ophth Soln 15 mL Bottle EACH EYE SCH ×2 (10:00→18:00)
[2018-09-13] MEDS: INSULIN ASPART, RECOMBINANT 100 UNITS/ML SUBQ SCH ×2 (10:07→16:43)
[2018-09-13] MEDS: Insulin Detemir 100 units/mL 10mL Vial SUBQ SCH (10:08)
[2018-09-13] MEDS: Rivastigmine 9.5 mg/24 hr Tdm TD SCH (10:12)
[2018-09-13] MEDS: Atorvastatin Calcium 10 MG TAB PO SCH (20:26)
[2018-09-14] MEDS: Pantoprazole 40 mg EC Tab PO SCH (06:38)
[2018-09-14] MEDS: Potassium Chloride 20 mEq ER Tab PO SCH (08:21)
[2018-09-14] MEDS: Multivitamin w/ Minerals Tab PO SCH (08:21)
[2018-09-14] MEDS: Ferrous Sulfate 325 MG TAB PO SCH (08:24)
[2018-09-14] MEDS: INSULIN ASPART SLIDING SCALE 100 UNITS/ML UNIT SUBQ SCH ×4 (09:26→20:22)
[2018-09-14] MEDS: DICLOFENAC 0.1% RIGHT EYE SCH ×4 (09:26→20:31)
[2018-09-14] MEDS: INSULIN ASPART, RECOMBINANT 100 UNITS/ML SUBQ SCH ×2 (09:26→16:46)
[2018-09-14] MEDS: Polyvinyl Alcohol Ophth Soln 15 mL Bottle EACH EYE SCH ×2 (09:26→16:23)
[2018-09-14] MEDS: Rivastigmine 9.5 mg/24 hr Tdm TD SCH (09:27)
[2018-09-14] MEDS: Insulin Detemir 100 units/mL 10mL Vial SUBQ SCH (09:30)
[2018-09-14] MEDS: Atorvastatin Calcium 10 MG TAB PO SCH (20:20)
--- NOTE | 2018-09-15 01:22 | Progress Notes ---
DATE: IDENTIFICATION: A 68-year-old male. SUBJECTIVE: The patient seen and examined. The patient is ambulatory, has very minimal pain on his left shoulder. PHYSICAL EXAMINATION: VITAL SIGNS: Temperature 98.4, pulse is 94, respiratory rate is 12, and blood pressure 116/62. HEENT: No facial asymmetry. NECK: Supple, no JVD. HEART: Regular. CHEST AND LUNGS: Equal in expansion, no expiratory wheezing. ABDOMEN: Soft, no guarding, no rigidity. Bowel sounds are present. No palpable mass. EXTREMITIES: No edema. NEUROLOGIC: Alert, awake, follows command. AVAILABLE DIAGNOSTIC DATA: None for my review. Glucoscan reviewed. CLINICAL IMPRESSION: 1. Diabetes mellitus. 2. Seizure disorder. 3. Benign prostatic hypertrophy. 4. Chronic obstructive pulmonary disease. 5. Degenerative joint disease. 6. Status post fall with impacted fracture of left humerus head and neck, suspect chronic. 7. Psychotic disorder. 8. Dementia. PLAN: 1. Ortho followup. 2. P.r.n. inhalation therapy. 3. Monitor blood sugar and blood pressure. 4. Seizure medication. 5. Seizure precaution. 6. Antihypertensive medications. 7. Fall precaution. 8. Psych medication and psych followup. 9. General nursing care. 10. Nutritional support. 11. Care plan reviewed and discussed. JOB# [id number]
--- NOTE | 2018-09-15 05:43 | Progress Notes ---
DATE: 09/14/2018 PSYCHIATRIC PROGRESS NOTE Chart reviewed and the patient interviewed. Also discussed the patient's condition with the staff and reviewed records and labs. The patient is still anxious and still has episodes of irritability and agitation, but seems to be less. The patient also is interacting more with peers and with others, but he still needs lots of redirections. Also, placement is an issue. The patient's daughter wanted the patient to go to different place other than his previous placement. I discussed that with previous placement and with the telehealth case manager in order to resolve the issue because [place] which is the place he came from is asking for the patient to go back. At the same time, we will wait for the outcome of that. Meanwhile, the patient is compliant with taking his medications with no side effects of medications. We will continue to work on discharge plans and placement issue and we will continue to follow up. JOB# [id number]
[2018-09-15] MEDS: Pantoprazole 40 mg EC Tab PO SCH (06:44)
[2018-09-15] MEDS: INSULIN ASPART SLIDING SCALE 100 UNITS/ML UNIT SUBQ SCH (07:04)
[2018-09-15] MEDS: Ferrous Sulfate 325 MG TAB PO SCH (09:26)
[2018-09-15] MEDS: Potassium Chloride 20 mEq ER Tab PO SCH (09:27)
[2018-09-15] MEDS: Multivitamin w/ Minerals Tab PO SCH (09:28)
[2018-09-15] MEDS: Polyvinyl Alcohol Ophth Soln 15 mL Bottle EACH EYE SCH (09:30)
[2018-09-15] MEDS: Rivastigmine 9.5 mg/24 hr Tdm TD SCH (09:30)
[2018-09-15] MEDS: Insulin Detemir 100 units/mL 10mL Vial SUBQ SCH (09:42)
[2018-09-15] MEDS: INSULIN ASPART, RECOMBINANT 100 UNITS/ML SUBQ SCH (10:14)
--- NOTE | 2018-09-16 08:47 | Diagnostic Imaging Report ---
Head CT without intravenous contrast Indication: Lightheadedness Comparison: None Technique: Axial images were obtained from the vertex to the skull base without IV contrast. Coronal reconstructions were made. Total DLP: 743, [id number] FINDINGS: Images of the brain images of the brain obtained without contrast demonstrate no evidence of an acute hemorrhage. Atrophy is noted. The ventricles and basal cisterns are patent. No mass effect or midline shift. Atherosclerosis is noted. No skull fracture or focal soft tissue swelling. Mild sinus disease is seen with mucosal thickening of the paranasal sinuses greatest within the left maxillary sinus. IMPRESSION: No evidence of an acute intracranial hemorrhage Atrophy. Atherosclerotic vascular disease. Mild sinus disease.
== END 2018-09-15 12:00 | disposition short-term general hospital (02) | DRG 885 ==
LOC: ER 22:04 → GERO 23:41
PROVIDERS: ADMIT Psychiatry & Neurology Psychiatry; ATTEND Psychiatry & Neurology Psychiatry
DX: F31.9 Bipolar disorder, unspecified (principal); N18.3 Chronic kidney disease, stage 3 (moderate); F03.91 Unspecified dementia, unspecified severity, with behavioral disturbance; I13.0 Hypertensive heart and chronic kidney disease with heart failure and stage 1 through stage 4 chronic kidney disease, or unspecified chronic kidney disease; J44.9 Chronic obstructive pulmonary disease, unspecified; I48.2 Chronic atrial fibrillation; F41.9 Anxiety disorder, unspecified; E66.8 Other obesity; F28 Other psychotic disorder not due to a substance or known physiological condition; G40.909 Epilepsy, unspecified, not intractable, without status epilepticus; G89.29 Other chronic pain; M19.90 Unspecified osteoarthritis, unspecified site; I50.9 Heart failure, unspecified; E11.22 Type 2 diabetes mellitus with diabetic chronic kidney disease; E78.5 Hyperlipidemia, unspecified; N40.0 Benign prostatic hyperplasia without lower urinary tract symptoms; M1A.9XX0 Chronic gout, unspecified, without tophus (tophi); K21.9 Gastro-esophageal reflux disease without esophagitis; E66.9 Obesity, unspecified; Z68.29 Body mass index [BMI] 29.0-29.9, adult; Z88.2 Allergy status to sulfonamides; Z82.49 Family history of ischemic heart disease and other diseases of the circulatory system
CPT/HCPCS: 36415-UA; 70450-TC; 73030-TC-LT; 80053-TC; 80061-TC; 80320-TC; 80329-TC; 82948-90; 83036-90; 84443-TC; 85025-TC; 86592-TC; 93005; 94760; G0410; J1815; Z7610

== ENCOUNTER 2018-09-15 11:57 | Inpatient (IN) | payer MEDICARE, OTHER ==
[2018-09-15 14:35] VITALS: BP 118/75
[2018-09-15] MEDS ORDERED: Albuterol/Ipratropium Neb 3 ML AERS HHN PRN (18:17)
[2018-09-15] MEDS ORDERED: Dextrose 50% 50 mL Abboject IVP PRN (18:17)
[2018-09-15] MEDS ORDERED: INSULIN GLARGINE HUM REC ANLOG 40 UNIT SUBQ SCH (18:30)
[2018-09-15] MEDS ORDERED: Non-Formulary Item 1 EA (Fluticasone/Vilanterol [Breo Ellipta 200-25 Mcg Inh] 1 EACH) IH SCH (18:30)
[2018-09-15 18:57] LABS: % BASOPHILS 0.4 % (0.0-2.0); % EOSINOPHILS 1.7 % (0.0-5.0); % LYMPHOCYTES 19.2 % (20.0-50.0); % NEUTROPHILS 70.7 % (40.0-80.0); EOSINOPHILE ABSOLUTE 0.2 Th/cmm (0.1-0.4); HEMATOCRIT 42.5 % (41.0-60); HEMOGLOBIN 13.8 gm/dL (12-16); LYMPHOCYTE ABSOLUTE 2.3 Th/cmm (1.5-3.0); MEAN CORPUSCULAR HGB CONC 32.6 pg (28.0-36.0); MEAN PLATELET VOLUME 9.2 fl; NEUTROPHILE ABSOLUTE 8.7 Th/cmm (1.8-8.0); PLATELET COUNT 179 Th/cmm (150-400); RED BLOOD COUNT 4.77 Mil/cmm (3.80-5.80); RED CELL DISTRIBUTION WIDTH 15.6 % (11.5-20.0); WHITE BLOOD COUNT 12.2 Th/cmm (4.8-10.8)
[2018-09-15 19:11] LABS: ALBUMIN 3.5 gm/dL (4.2-5.5); ALKALINE PHOSPHATASE 148 U/L (34-104); ANION GAP 11.7 (7.0-16.0); BILIRUBIN,TOTAL 0.6 mg/dL (0.3-1.0); BUN - UREA NITROGEN 31 mg/dL (7-25); CALCIUM SERUM 9.4 mg/dL (8.6-10.3); CARBON DIOXIDE 28.1 mEq/L (21.0-31.0); CHLORIDE 101 mEq/L (98-107); CREATININE - SERUM 1.3 mg/dL (0.7-1.3); GFR AFRICAN-AMERICAN > 60.0 ml/min (>90); GFR NON AFRICAN-AMERICAN 58.3 ml/min; GLUCOSE 120 mg/dL (70-105); MAGNESIUM 2.1 mg/dL (1.9-2.7); POTASSIUM SERUM 3.8 mEq/L (3.5-5.1); SGOT 22 U/L (13-39); SGPT/ALT 18 U/L (7-52); SODIUM SERUM 137 mEq/L (136-145)
--- NOTE | 2018-09-15 19:55 | History & Physical ---
ADMIT DATE: 09/15/2018 PATIENT IDENTIFICATION: A 68-year-old male. CHIEF COMPLAINT: Sent to ICU after the patient passed out at [facility]. HISTORY SOURCE: Reviewing the chart along with talking to the patient's daughter and the patient is known to me since I did the H and P at [facility]. HISTORY OF PRESENT ILLNESS: A 68-year-old male who was a resident of [facility], admitted at [facility] for his psychotic illness has been suffering with dementia associated with psychotic disorder, also has a medical diagnosis, which include diabetes mellitus, hypertension, coronary artery disease, status post angioplasty and stent placement, hyperlipidemia, history of recurrent urinary tract infection, enlarged prostate, and COPD. Getting his treatment at [facility] where the patient was noted by nursing staff that the patient passed out. Upon interviewing with the patient, the patient stated that he was going to bathroom to urinate and on the way he passed out and he did have some shortness of breath as well. The patient was noted to have atrial fibrillation and the patient was noted to have low blood pressure. The patient is now being transferred to ICU. The patient did have SACK MAKER done at [facility]. When I talked to the patient's daughter, she provided history that he also has a diagnosis of atrial fibrillation as well as a history of a stroke in the past. PAST MEDICAL HISTORY: Remarkable for, 1. Diabetes. 2. Hypertension. 3. Hyperlipidemia. 4. Degenerative joint disease. 5. Dementia. 6. Chronic AFib. 7. DJD. 8. History of CVA. 9. BPH. 10. History of recurrent urinary tract infection. MEDICATIONS: At the time of transfer has been reviewed and reconciled appropriately. ALLERGIES: The patient is allergic to SULFA and IODINE. SOCIAL HISTORY: He was a resident of [facility]. He has a previous history of smoking cigarette. No alcohol use. FAMILY MEDICAL HISTORY: Remarkable for diabetes and hypertension. REVIEW OF SYSTEMS: The patient currently denies any chest pain or shortness of breath, Complained of some numbness on his both feet. Denies any headache. Denies any blurred vision, double vision. Denies any dysphagia. Denies any abdominal pain. Denies any hematemesis, hematuria, hematochezia, or melena. PHYSICAL EXAMINATION: GENERAL: The patient is alert, awake, lying in the bed without any acute distress. VITAL SIGNS: Temperature 97.8, pulse is 89, respiratory rate is 18, and blood pressure 103/54. HEENT: Normocephalic, atraumatic. Extraocular muscles intact. Tongue was pink and coated. Poor dentition were noted. NECK: Supple. No JVD, no lymphadenopathy, or thyromegaly. HEART: Both heart sounds are irregular. CHEST: Lung equal in expansion with no expiratory wheezing. ABDOMEN: Soft. No guarding, no rigidity. Liver and spleen are not palpable. No palpable mass. EXTREMITIES: No edema, no cyanosis. Left upper extremity range of motions are limited and painful. NEUROLOGIC: Alert, awake, follows commands. Decreased power throughout the upper and lower extremity noted. AVAILABLE DIAGNOSTIC DATA: Currently pending. CLINICAL IMPRESSION: 1. Status post syncopal episode, etiology needs to determine in the view of coronary artery disease, history of cerebrovascular accident, history of atrial fibrillation. Differential diagnosis ruled out cardiac arrhythmia, secondary ischemia, ruled out seizure, ruled out new cerebrovascular accident, rule out vasovagal. 2. Diabetes. 3. Hypertension. 4. Hyperlipidemia. 5. Degenerative joint disease. 6. Coronary artery disease. 7. Benign prostatic hypertrophy. 8. History of urinary tract infection. 9. Dementia. 10. Psychotic disorder. PLAN: The patient is admitted to ICU. At this time, we will get the admission lab, which included CBC, CMP, EKG, troponin. Chest x-ray for now. Urinalysis will be done as well. The patient will be placed on cardiac monitoring along with neuro check. We will put the patient on apixaban for anticoagulation therapy after CT head reported negative. We will also have a CT head to be done prior to starting his blood thinner. The patient will be placed on appropriate home medicine reconciliation. Cardiology and Neurology consultation requested. Neuro check will be done. Appropriate home medicines will be reconciled and we will follow consult recommendations. Care plan has been reviewed and discussed with the patient's daughter as well as nurse. JOB# [id number]
[2018-09-15] MEDS: INSULIN ASPART SLIDING SCALE 100 UNITS/ML UNIT SUBQ SCH (20:52)
[2018-09-15] MEDS: Multivitamin w/ Minerals Tab PO SCH (20:53)
[2018-09-15] MEDS: Pantoprazole 40 mg EC Tab PO SCH (20:53)
[2018-09-15 22:46] LABS: URINE SOURCE MIDSTREAM
[2018-09-15 22:50] LABS: URINE BILIRUBIN NEGATIVE (NEGATIVE); URINE BLOOD TRACE (NEGATIVE); URINE GLUCOSE (UA) NEGATIVE (NEGATIVE); URINE KETONE NEGATIVE (NEGATIVE); URINE LEUKOCYTE ESTERASE NEGATIVE (NEGATIVE); URINE MICROSCOPIC INDICATED? YES; URINE NITRATE NEGATIVE (NEGATIVE); URINE PROTEIN NEGATIVE (NEGATIVE); URINE UROBILINOGEN 0.2 E.U./dL (0.2 - 1.0)
[2018-09-15 23:03] LABS: URINE CLARITY CLEAR (CLEAR); URINE COLOR STRAW
[2018-09-15 23:12] LABS: URINE RBC 0-2 /hpf (0-5); URINE WBC 0-2 /hpf (0-5)
[2018-09-15 23:13] LABS: URINE BACTERIA NONE SEEN /hpf (NONE SEEN); URINE EPITHELIAL CELLS NONE SEEN /lpf (FEW)
--- NOTE | 2018-09-15 23:39 | Progress Notes ---
DATE: SUBJECTIVE: Chart reviewed and the patient interviewed. Also discussed the patient's condition with the staff and reviewed records and labs. The patient still had episodes of agitation, but he is still confused and needs lots of redirections. The patient also is still having difficulty with following directions at times. The patient also is still unable to provide any safe plan for self-care. Placement is an issue and confusing and discussed with the staff the placement issue. The patient's daughter is still unsure about placement and have different options and ____ the patient's daughter and she does not want the patient to go back to previous placement. At the same time, the patient continued to comply with taking Lexapro, Keppra, BuSpar, and Seroquel with no side effects. ASSESSMENT: The patient is still confused and needs redirections and also waiting for placement. TREATMENT PLAN: Continue monitoring his condition and behavior and working with the patient's daughter in regard to discharge plans and placement issue. [facility]# [id number]
--- NOTE | 2018-09-16 00:07 | Consultation ---
DATE OF CONSULTATION: 09/15/2018 HISTORY OF PRESENT ILLNESS: The patient is a 68-year-old The patient in [facility]. The patient says that he slipped and fell. He says that he is not sure whether he has had no loss of function, No abnormal jerking. The patient has been admitted there with abnormal behavior, impulsive behavior. Dementia. The patient is lying in bed, awake, in ICU. PAST MEDICAL HISTORY: 1. Dementia. 2. Atrial fibrillation. MEDICATIONS: Albuterol. Lexapro, Proscar, insulin, lorazepam, Protonix, Seroquel, rivastigmine 9.5/24 hour transdermal patch. REVIEW OF SYSTEMS: Twelve point negative except for above. PHYSICAL EXAMINATION: VITAL SIGNS: Temperature 98.2, blood pressure 102/62, pulse is 80. NECK: Supple, no bruits. HEART: Sounds S1, S2. LUNGS: Clear. NEUROLOGIC: He is awake, alert. He actually gives me his name, his age. He actually knew the day. He knew the month and the year. He did not know the date. He is able to name simple objects. CRANIAL: Pupils react to light. Full eye movement, no nystagmus. No facial weakness. Pupils react to light. MOTOR: He will lift both arms up. He has increased tone. I do not see much tremor. There is some parkinsonian features with slowness. Lower extremities also increased tone with mainly rigidity. Reflexes about -1 upper extremity, have difficulty lower extremity. INVESTIGATIONS: CT scan of the head shows atrophy, sinusitis. LABORATORY DATA: WBC 12.2, hemoglobin 13.8. Sodium and potassium okay. IMPRESSION: 1. The patient with fall, probably accidental. Rule out syncope. Suggest Cardiology evaluation. 2. No seizures. 3. The patient with atrial fibrillation. 4. The patient with dementia. 5. The patient has psychosis. PLAN: I plan to go ahead and do a carotid Doppler study. JOB# [id number]
[2018-09-16 05:20] LABS: % BASOPHILS 0.6 % (0.0-2.0); % EOSINOPHILS 3.5 % (0.0-5.0); % LYMPHOCYTES 22.6 % (20.0-50.0); % MONOCYTES 8.3 % (2.0-10.0); BASOPHILE ABSOLUTE 0.1 Th/cumm (0-0.2); EOSINOPHILE ABSOLUTE 0.4 Th/cmm (0.1-0.4); HEMATOCRIT 40.1 % (41.0-60); HEMOGLOBIN 12.9 gm/dL (12-16); LYMPHOCYTE ABSOLUTE 2.6 Th/cmm (1.5-3.0); MEAN CELL VOLUME 90.3 fl (80-99); MEAN CORPUSCULAR HEMOGLOBIN 29.1 pg (27.0-31.0); MEAN CORPUSCULAR HGB CONC 32.2 pg (28.0-36.0); MEAN PLATELET VOLUME 9.3 fl; NEUTROPHILE ABSOLUTE 7.5 Th/cmm (1.8-8.0); PLATELET COUNT 169 Th/cmm (150-400); RED BLOOD COUNT 4.44 Mil/cmm (3.80-5.80); RED CELL DISTRIBUTION WIDTH 15.6 % (11.5-20.0); WHITE BLOOD COUNT 11.6 Th/cmm (4.8-10.8)
[2018-09-16 05:45] LABS: ALB/GLOB RATIO 1.1 (1.0-1.8); ALBUMIN 3.4 gm/dL (4.2-5.5); ALKALINE PHOSPHATASE 132 U/L (34-104); ANION GAP 11.5 (7.0-16.0); BILIRUBIN,TOTAL 0.6 mg/dL (0.3-1.0); BUN - UREA NITROGEN 34 mg/dL (7-25); CALCIUM SERUM 9.1 mg/dL (8.6-10.3); CARBON DIOXIDE 29.8 mEq/L (21.0-31.0); CHLORIDE 102 mEq/L (98-107); CREATININE - SERUM 1.3 mg/dL (0.7-1.3); GFR AFRICAN-AMERICAN > 60.0 ml/min (>90); GFR NON AFRICAN-AMERICAN 58.3 ml/min; GLUCOSE 90 mg/dL (70-105); MAGNESIUM 2.1 mg/dL (1.9-2.7); POTASSIUM SERUM 4.3 mEq/L (3.5-5.1); SGOT 19 U/L (13-39); SGPT/ALT 16 U/L (7-52); SODIUM SERUM 139 mEq/L (136-145); TOTAL PROTEIN,SERUM 6.5 gm/dL (6.0-8.3)
[2018-09-16] MEDS: INSULIN ASPART SLIDING SCALE 100 UNITS/ML UNIT SUBQ SCH ×4 (06:58→21:05)
[2018-09-16] MEDS: Pantoprazole 40 mg EC Tab PO SCH (07:00)
--- NOTE | 2018-09-16 08:44 | Diagnostic Imaging Report ---
CHEST X-RAY: AP view INDICATION: Pneumonia COMPARISON: None FINDINGS: There is slight accentuation of the interstitial lung markings. No focal consolidation. Small left effusion is noted. Mild cardiomegaly is noted. Degenerative changes of the spine are noted. IMPRESSION: Slight accentuation of the interstitial lung markings, nonspecific. No evidence of sabas CHF. No focal consolidation. Small left effusion. Mild cardiomegaly.
[2018-09-16] MEDS: Polyvinyl Alcohol Ophth Soln 15 mL Bottle EACH EYE SCH ×2 (08:59→16:52)
[2018-09-16] MEDS ORDERED: Non-Formulary Item 1 EA (Apixaban [Eliquis] 5 MG) PO SCH (09:00)
[2018-09-16] MEDS: Rivastigmine 9.5 mg/24 hr Tdm TD SCH (09:01)
[2018-09-16] MEDS: Multivitamin w/ Minerals Tab PO SCH (09:01)
[2018-09-16] MEDS: Ferrous Sulfate 325 MG TAB PO SCH (09:01)
--- NOTE | 2018-09-16 10:55 | Progress Notes ---
DATE: 09/16/2018 PATIENT'S ID: A 68-year-old male. SUBJECTIVE: The patient seen and examined. The patient is lying in the bed. The patient is alert, awake. The patient denies any chest pain, shortness of breath, palpitation, dizziness, nausea, or vomiting. PHYSICAL EXAMINATION: VITAL SIGNS: Temperature 98, pulse is 95, respiratory rate is 18, blood pressure 92/63. HEENT: No facial asymmetry. NECK: Supple, no JVD. HEART: Irregular. CHEST AND LUNGS: Equal in expansion, no expiratory wheezing. ABDOMEN: Soft. No guarding, no rigidity. Liver and spleen are not palpable. No palpable mass. EXTREMITIES: No edema. Left upper extremities range of motion are limited and painful. AVAILABLE DIAGNOSTIC DATA: White count of 11.6, hemoglobin 12.9, platelet count 169. Liver functions are normal. Creatinine is 1.3. Electrolytes are within normal limit. Chest x-ray done on 09/15 at 1823, no evidence of CHF, no focal consolidation. CT head is currently pending. According to the nursing staff, the patient is eating fairly well. CLINICAL IMPRESSION: 1. Status post syncopal episode. Etiology probably secondary to multiple hypotensive medication along with psychotropic medication. Doubt stroke or SD is playing a bigger role, possibilities of cardiac arrhythmias are also there considering the patient has atrial fibrillation. 2. Diabetes. 3. Hypertension. 4. Coronary artery disease. 5. Hyperlipidemia. 6. Degenerative joint disease. 7. Dementia. 8. Psychotic disorder. 9. Debility. PLAN: The patient will be transferred to telemetry unit since the patient does not meet any criteria for ICU. The patient will be followed by the library consultant at this time and we will follow library consultant's recommendations. We will start some physical therapy and occupational therapy. Continue current medication for underlying medical problem, which includes hypertension, hyperlipidemia, diabetes mellitus, atrial fibrillation, DJD, seizure disorder, psychotic disorder, as well as dementia. Care plan has been reviewed and discussed with [facility]. JOB# [id number]
--- NOTE | 2018-09-16 11:07 | Diagnostic Imaging Report ---
Carotid ultrasound HISTORY: TIA COMPARISON: None Technique: Longitudinal and transverse sonographic sector images of the carotid arteries were obtained with doppler analysis. FINDINGS: Exam of the right side demonstrates intimal thickening and and moderate generalized atherosclerosis, greatest along the carotid bulb. Exam of the left side demonstrates intimal thickening and moderate generalized atherosclerosis greatest along the carotid bulb. Areas of calcified plaque formation are seen bilaterally. Antegrade vertebral artery flow is demonstrated bilaterally. The velocity and velocity ratios are within normal limits. IMPRESSION: Moderate generalized atherosclerotic vascular disease. No evidence of hemodynamically significant stenosis.
[2018-09-16] MEDS: Budesonide 0.5 Mg/2 mL Ud HHN SCH (15:27)
--- NOTE | 2018-09-16 16:37 | Cardiology ---
09/16/2018 M-MODE ECHOCARDIOGRAM: Mitral valve, anterior leaflet of mitral valve shows normal excursion, EF velocity. Posterior leaflet of the mitral valve shows normal excursion. Left ventricular posterior wall shows increased thickness, normal excursion. Interventricular septum shows increased thickness, normal excursion, hypertrophy of the left ventricle, ejection fraction 50%. Left atrium enlarged 5.1 cm. Aortic root shows normal dimension, normal excursion of aortic leaflets. CONCLUSION: Hypertrophy of the left ventricle, left atrial enlargement, ejection fraction 50%. 2D ECHO: Long axis view showed normal sized left ventricle with hypertrophy of the left ventricle. Left atrium enlarged. Aortic root shows normal dimension, normal excursion of aortic leaflets. Short axis view of mitral valve normal. Short axis view of aortic valve normal. Apical four chamber view showed normal sized left ventricle with hypertrophy of the left ventricle. Left atrial enlargement, right ventricle is normal, right atrial enlargement. CONCLUSION: Left atrial enlargement, right atrial enlargement, hypertrophy of the left ventricle, ejection fraction 50%. Doppler study shows mild mitral regurgitation, [id number] tricuspid regurgitation, right ventricular systolic pressure 33 mmHg. [facility]# [id number]
[2018-09-16] MEDS ORDERED: Fleet Enema 135 mL RC ONE (17:03)
[2018-09-16] MEDS: Atorvastatin Calcium 10 MG TAB PO SCH (22:02)
--- NOTE | 2018-09-16 23:09 | Consultation ---
DATE OF CONSULTATION: 09/16/[address] Banerjee. HISTORY OF PRESENT ILLNESS: This is a 68-year-old male patient who was admitted to [facility] for psychotic disorder. The patient was going to the bathroom, on the way the patient had slipped down and had possible syncopal episode. The patient is not showed that he lost consciousness. The patient at this time was also hypotensive and the patient was transferred to ICU. Cardiac consult requested in view of syncope and atrial fibrillation. PAST MEDICAL HISTORY: Diabetes mellitus type 2, hypertension, stable angina, coronary artery disease with stent placement, hyperlipidemia, degenerative joint disease, dementia, psychotic disorder, BPH, and COPD. FAMILY HISTORY: Unremarkable. SOCIAL HISTORY: No history of smoking, alcohol abuse. ALLERGIES: None. PHYSICAL EXAMINATION: VITAL SIGNS: Blood pressure 100/60, pulse 100 irregular, and respirations 28. HEAD: Normocephalic. No lumps or bumps. EYES: Pupils equal, reactive to light. Fundi show AV nicking, sclerae white, conjunctivae pink. NECK: Carotid 2+. Normal upstroke. JVD flat. Thyroid not palpable. Lymph nodes not palpable. CHEST: Shows increased AP diameter. No kyphosis, scoliosis. LUNGS: Bilateral bronchovesicular breath sounds. HEART: PMI fifth intercostal space with lateral to midclavicular line. S1, S2. No S3, S4, S1, irregular. Systolic murmur, grade 2/6. ABDOMEN: Soft. Liver, spleen not palpable. No organomegaly. Bowel sounds active. NEUROLOGIC: Unremarkable. EXTREMITIES: Peripheral pulses 2+. No pedal edema. CLINICAL IMPRESSION: 1. Syncope. 2. Atrial fibrillation. 3. Diabetes mellitus type 2. 4. Hypertension. 5. Stable angina. 6. Coronary artery disease with stent placement. 7. Degenerative joint disease. 8. Hyperlipidemia. 9. Dementia. 10. Psychotic disorder. 11. Benign prostatic hypertrophy. 12. Chronic obstructive pulmonary disease. PLAN: At the present time, we will continue to monitor the patient in Intensive Care Unit, maintain the blood pressure. Continue present management and have Neurology evaluation. Also get an echocardiogram. JOB# [id number]
[2018-09-17] MEDS: Pantoprazole 40 mg EC Tab PO SCH (06:42)
[2018-09-17] MEDS: Budesonide 0.5 Mg/2 mL Ud HHN SCH ×2 (07:12→20:55)
[2018-09-17] MEDS: INSULIN ASPART SLIDING SCALE 100 UNITS/ML UNIT SUBQ SCH ×4 (08:09→21:15)
[2018-09-17] MEDS: Ferrous Sulfate 325 MG TAB PO SCH (08:18)
[2018-09-17] MEDS: Multivitamin w/ Minerals Tab PO SCH (08:20)
[2018-09-17] MEDS: Polyvinyl Alcohol Ophth Soln 15 mL Bottle EACH EYE SCH ×2 (08:23→17:41)
[2018-09-17] MEDS: Rivastigmine 9.5 mg/24 hr Tdm TD SCH (08:23)
--- NOTE | 2018-09-17 11:13 | General Progress Note ---
Subjective - Review of Systems Service Date: 09/17/18 Subjective: Patient has no complaint of chest pain palpitation less shortness of breath Objective - Results Result Diagrams: 09/16/18 04:49 09/16/18 04:49 Recent Labs: Laboratory Last Values WBC 11.6 Th/cmm (4.8-10.8) H 09/16/18 04:49 RBC 4.44 Mil/cmm (3.80-5.80) 09/16/18 04:49 Hgb 12.9 gm/dL (12-16) 09/16/18 04:49 Hct 40.1 % (41.0-60) L 09/16/18 04:49 MCV 90.3 fl (80-99) 09/16/18 04:49 MCH 29.1 pg (27.0-31.0) 09/16/18 04:49 MCHC Differential 32.2 pg (28.0-36.0) 09/16/18 04:49 RDW 15.6 % (11.5-20.0) 09/16/18 04:49 Plt Count 169 Th/cmm (150-400) 09/16/18 04:49 MPV 9.3 fl 09/16/18 04:49 Neutrophils % 65.0 % (40.0-80.0) 09/16/18 04:49 Lymphocytes % 22.6 % (20.0-50.0) 09/16/18 04:49 Monocytes % 8.3 % (2.0-10.0) 09/16/18 04:49 Eosinophils % 3.5 % (0.0-5.0) 09/16/18 04:49 Basophils % 0.6 % (0.0-2.0) 09/16/18 04:49 Sodium 139 mEq/L (136-145) 09/16/18 04:49 Potassium 4.3 mEq/L (3.5-5.1) 09/16/18 04:49 Chloride 102 mEq/L (98-107) 09/16/18 04:49 Carbon Dioxide 29.8 mEq/L (21.0-31.0) 09/16/18 04:49 Anion Gap 11.5 (7.0-16.0) 09/16/18 04:49 BUN 34 mg/dL (7-25) H 09/16/18 04:49 Creatinine 1.3 mg/dL (0.7-1.3) 09/16/18 04:49 Est GFR ( Amer) > 60.0 ml/min (>90) 09/16/18 04:49 Est GFR (Non-Af Amer) 58.3 ml/min 09/16/18 04:49 BUN/Creatinine Ratio 26.2 09/16/18 04:49 Glucose 90 mg/dL (70-105) 09/16/18 04:49 POC Glucose 106 MG/DL (70 - 105) H 09/17/18 06:41 Calcium 9.1 mg/dL (8.6-10.3) 09/16/18 04:49 Magnesium 2.1 mg/dL (1.9-2.7) 09/16/18 04:49 Total Bilirubin 0.6 mg/dL (0.3-1.0) 09/16/18 04:49 AST 19 U/L (13-39) 09/16/18 04:49 ALT 16 U/L (7-52) 09/16/18 04:49 Alkaline Phosphatase 132 U/L (34-104) H 09/16/18 04:49 Troponin I 0.01 ng/mL (0.01-0.05) 09/16/18 10:20 Total Protein 6.5 gm/dL (6.0-8.3) 09/16/18 04:49 Albumin 3.4 gm/dL (4.2-5.5) L 09/16/18 04:49 Globulin 3.1 gm/dL 09/16/18 04:49 Albumin/Globulin Ratio 1.1 (1.0-1.8) 09/16/18 04:49 Urine Source MIDSTREAM 09/15/18 21:05 Urine Color STRAW 09/15/18 21:05 Urine Clarity CLEAR (CLEAR) 09/15/18 21:05 Urine pH 7.0 (4.6 - 8.0) 09/15/18 21:05 Ur Specific [place] 1.010 (1.005-1.030) 09/15/18 21:05 Urine Protein NEGATIVE mg/dL (NEGATIVE) 09/15/18 21:05 Urine Glucose (UA) NEGATIVE mg/dL (NEGATIVE) 09/15/18 21:05 Urine Ketones NEGATIVE mg/dL (NEGATIVE) 09/15/18 21:05 Urine Blood TRACE (NEGATIVE) 09/15/18 21:05 Urine Nitrate NEGATIVE (NEGATIVE) 09/15/18 21:05 Urine Bilirubin NEGATIVE (NEGATIVE) 09/15/18 21:05 Urine Urobilinogen 0.2 E.U./dL (0.2 - 1.0) 09/15/18 21:05 Ur Leukocyte Esterase NEGATIVE (NEGATIVE) 09/15/18 21:05 Urine RBC 0-2 /hpf (0-5) H 09/15/18 21:05 Urine WBC 0-2 /hpf (0-5) 09/15/18 21:05 Ur Epithelial Cells NONE SEEN /lpf (FEW) 09/15/18 21:05 Urine Bacteria NONE SEEN /hpf (NONE SEEN) 09/15/18 21:05 - Physical Exam Vitals and I&O: Vital Signs Temp 97.7 F 09/17/18 08:00 Pulse 91 09/17/18 08:21 Resp 18 09/17/18 08:00 BP 127/80 09/17/18 08:21 Pulse Ox 96 09/17/18 08:00 Intake & Output 09/16/18 09/17/18 09/17/18 18:59 06:59 18:59 Intake Total 600 Output Total 2150 Balance -1550 Weight (lbs) 128.99 kg Intake: Oral 600 Output: Urine 2150 Other: # Bowel Movements 1 Stool Characteristics Soft Soft Green Formed Weight Source Bedscale Active Medications: Current Medications Acetaminophen (Tylenol) 650 mg PO Q4HR PRN PRN Reason: Pain or Fever >101 Stop: 11/14/18 18:16 Albuterol/Ipratropium (Duoneb Neb) 3 ml HHN Q4HRT PRN PRN Reason: Shortness of Breath Stop: 11/14/18 18:16 Allopurinol (Zyloprim) 100 mg PO DAILY [facility] Stop: 11/15/18 08:59 Last Admin: 09/17/18 08:22 Dose: 100 mg Artificial Tears (Artificial Tears Ophth Soln) 1 drop EACH EYE BID [facility] Stop: 11/15/18 08:59 Last Admin: 09/17/18 08:23 Dose: 1 drop Atorvastatin Calcium (Lipitor) 60 mg PO HS [facility] Stop: 11/15/18 20:59 Last Admin: 09/16/18 22:02 Dose: 60 mg Budesonide (Pulmicort) 0.5 mg HHN DAILY [facility] Stop: 11/15/18 11:14 Last Admin: 09/17/18 07:12 Dose: 0.5 mg Dextrose (D50w) 50 ml IVP PRN PRN PRN Reason: BS BELOW 60 & NOT TOLERATE PO Docusate Sodium (Colace) 100 mg PO BID [facility] Stop: 11/14/18 21:44 Last Admin: 09/17/18 08:19 Dose: 100 mg Escitalopram Oxalate (Lexapro) 40 mg PO DAILY [facility]; Protocol Stop: 11/14/18 19:59 Last Admin: 09/17/18 08:19 Dose: 40 mg Ferrous Sulfate (Iron) 325 mg PO DAILY [facility] Stop: 11/15/18 08:59 Last Admin: 09/17/18 08:18 Dose: 325 mg Finasteride (Proscar) 5 mg PO DAILY [facility]; Protocol Stop: 11/14/18 19:59 Last Admin: 09/17/18 08:19 Dose: 5 mg Insulin Aspart (Novolog Insulin Sliding Scale) 0 units SUBQ ACHS [facility]; Protocol Stop: 11/14/18 20:59 Last Admin: 09/17/18 08:09 Dose: Not Given Isosorbide Mononitrate (Imdur) 120 mg PO DAILY [facility] Stop: 11/15/18 08:59 Last Admin: 09/17/18 08:19 Dose: 120 mg Levetiracetam (Keppra) 750 mg PO BID [facility] Stop: 11/14/18 21:44 Last Admin: 09/17/18 08:20 Dose: 750 mg Lorazepam (Ativan) 0.5 mg PO Q12HR [facility]; Protocol Stop: 11/14/18 20:59 Last Admin: 09/17/18 08:19 Dose: 0.5 mg Metoprolol Succinate (Toprol Xl) 25 mg PO DAILY [facility] Stop: 11/15/18 08:59 Last Admin: 09/17/18 08:21 Dose: 25 mg Miscellaneous (Clinical Monitoring) 1 ea MC DAILY PRN PRN Reason: RENAL DOSING- XARELTO Stop: 11/15/18 15:18 Nitroglycerin (Nitrostat) 0.4 mg SL Q5MIN PRN PRN Reason: Chest Pain Nystatin (Nystop) 100 units TP TID [facility] Stop: 11/16/18 09:59 Pantoprazole Sodium (Protonix) 40 mg PO DAILY@0730 [facility] Stop: 11/14/18 20:59 Last Admin: 09/17/18 06:42 Dose: 40 mg Quetiapine Fumarate (Seroquel) 50 mg PO BID [facility]; Protocol Stop: 11/14/18 19:59 Last Admin: 09/17/18 08:19 Dose: 50 mg Rivaroxaban (Xarelto) 20 mg PO DAILY [facility] Stop: 11/16/18 08:59 Last Admin: 09/17/18 08:22 Dose: 20 mg Rivastigmine (Exelon 9.5 Mg/24 Hr Tdm) 1 patch TD DAILY [facility] Stop: 11/15/18 08:59 Last Admin: 09/17/18 08:23 Dose: 1 patch Sodium Chloride (Saline Flush) 10 ml IV QSHIFT [facility] Stop: 11/14/18 19:59 Last Admin: 09/17/18 08:18 Dose: 10 ml Tamsulosin HCl (Flomax) 0.8 mg PO HS [facility] Stop: 11/14/18 20:59 Last Admin: 09/16/18 22:03 Dose: 0.8 mg General: Mild distress HEENT: PERRLA, Other (normal) Neck: Supple, JVD, +2 carotid pulse wo bruit (10 cm above sternal angle) Cardiovascular: Systolic murmurs, Other (atrial fibrillation) Lungs: Other (basilar rales location of the) Abdomen: Soft Extremities: Edema Assessment/Plan - Assessment Assessment: Syncope Atrial fibrillation Diabetes mellitus type 2 Hypertension Stable angina Coronary artery disease with stent placement Hyperlipidemia Dementia Psychotic disorder BPH COPD - Plan Plan: Continue present management continue anticoagulation
[2018-09-17] MEDS: NYSTATIN 100000 UNITS/GM POWD TP SCH ×3 (11:39→21:18)
--- NOTE | 2018-09-17 17:00 | Progress Notes ---
DATE: IDENTIFICATION: A 68-year-old male. SUBJECTIVE: The patient seen and examined. The patient is lying in the bed. The patient has no new complaint. Nursing staff reports a rash under the skin fold area of anterior abdominal wall. The patient currently denies any chest pain, shortness of breath, palpitation, dizziness, nausea, vomiting. PHYSICAL EXAMINATION: VITAL SIGNS: Temperature 97.7, pulse is 90, respiratory rate 18, blood pressure 127/80. HEENT: Normocephalic, atraumatic. Extraocular muscles intact. Tongue was pink and coated. NECK: Supple, no JVD. HEART: Regular. CHEST AND LUNGS: Equal in expansion, no expiratory wheezing. ABDOMEN: Soft. No guarding, no rigidity. Bowel sounds present. No palpable mass. EXTREMITIES: No edema. NEUROLOGIC: Alert, awake, follows commands. Decreased power throughout the upper and lower extremity noted. AVAILABLE DIAGNOSTIC DATA: A 2D echocardiogram: left atrial enlargement, LVH with ejection fraction of 50%. Carotid ultrasound was done, which did reveal moderately generalized atherosclerotic vascular disease. No evidence of hemodynamically significant stenosis. CLINICAL IMPRESSION: 1. Status post syncopal episode. Etiology probably second to medication related and needs to rule out for cerebrovascular accident. MRI is currently pending. 2. Coronary artery disease, status post stent placement. 3. Hypertension. 4. Hyperlipidemia. 5. Degenerative joint disease. 6. Dementia. 7. Psychotic disorder. 8. Debility. 9. Cutaneous candidiasis. PLAN: 1. Topical antifungal powder. 2. PT, OT. 3. Antiplatelet therapy. 4. General nursing care. 5. Continue other medication as prescribed. 6. Follow lab. 7. Follow consult recommendation. 8. Care plan reviewed and discussed with staff. JOB# [id number]
--- NOTE | 2018-09-17 19:14 | Progress Notes ---
DATE: 09/16/2018 SUBJECTIVE: The patient in bed, awake, alert. He will answer questions. Somewhat confused, but able to interact. No repeat episodes of passing out. OBJECTIVE: VITAL SIGNS: Temperature 97.9, blood pressure 130/70, pulse 110. NECK: Supple. No neck bruits. CARDIOVASCULAR: Heart sounds S1, S2. LUNGS: Clear. NEUROLOGIC: The patient is lying in bed. He will answer questions. He gives me his name, his age. He actually give me the date. He knew what month, what year, but his short-term memory is poor. INVESTIGATIONS: CT scan of the head is negative. The patient's carotid Doppler studies shows some artherosclerotic vascular disease, but no evidence of any stenosis. ASSESSMENT: 1. Loss of consciousness, syncope. No seizures. 2. Fall. 3. Dementia. 4. Atrial fibrillation. Some workup so far is negative. Gradual ambulation. 5. Other diagnoses include diabetes, hypertension, hyperlipidemia, and arthritis. JOB# [id number]
[2018-09-17] MEDS: Atorvastatin Calcium 10 MG TAB PO SCH (21:17)
[2018-09-18 05:50] LABS: % BASOPHILS 0.4 % (0.0-2.0); % EOSINOPHILS 4.2 % (0.0-5.0); % LYMPHOCYTES 25.5 % (20.0-50.0); % MONOCYTES 8.2 % (2.0-10.0); % NEUTROPHILS 61.7 % (40.0-80.0); EOSINOPHILE ABSOLUTE 0.5 Th/cmm (0.1-0.4); HEMATOCRIT 37.2 % (41.0-60); HEMOGLOBIN 12.1 gm/dL (12-16); LYMPHOCYTE ABSOLUTE 2.9 Th/cmm (1.5-3.0); MEAN CELL VOLUME 90.3 fl (80-99); MEAN CORPUSCULAR HEMOGLOBIN 29.4 pg (27.0-31.0); MEAN CORPUSCULAR HGB CONC 32.6 pg (28.0-36.0); MEAN PLATELET VOLUME 9.6 fl; MONOCYTE ABSOLUTE 0.9 Th/cmm (0.3-1.0); NEUTROPHILE ABSOLUTE 7.2 Th/cmm (1.8-8.0); PLATELET COUNT 155 Th/cmm (150-400); RED BLOOD COUNT 4.13 Mil/cmm (3.80-5.80); RED CELL DISTRIBUTION WIDTH 15.5 % (11.5-20.0); WHITE BLOOD COUNT 11.5 Th/cmm (4.8-10.8)
[2018-09-18 05:56] LABS: ANION GAP 11.8 (7.0-16.0); BILIRUBIN,TOTAL 0.5 mg/dL (0.3-1.0); BUN - UREA NITROGEN 36 mg/dL (7-25); CALCIUM SERUM 8.6 mg/dL (8.6-10.3); CARBON DIOXIDE 27.1 mEq/L (21.0-31.0); CHLORIDE 105 mEq/L (98-107); CREATININE - SERUM 1.3 mg/dL (0.7-1.3); GFR AFRICAN-AMERICAN > 60.0 ml/min (>90); GFR NON AFRICAN-AMERICAN 58.3 ml/min; GLUCOSE 108 mg/dL (70-105); POTASSIUM SERUM 3.9 mEq/L (3.5-5.1); SODIUM SERUM 140 mEq/L (136-145)
[2018-09-18 05:57] LABS: ALKALINE PHOSPHATASE 111 U/L (34-104); SGOT 15 U/L (13-39); SGPT/ALT 12 U/L (7-52)
[2018-09-18] MEDS: INSULIN ASPART SLIDING SCALE 100 UNITS/ML UNIT SUBQ SCH ×4 (06:36→20:16)
[2018-09-18] MEDS: Ferrous Sulfate 325 MG TAB PO SCH (08:08)
[2018-09-18] MEDS: Multivitamin w/ Minerals Tab PO SCH (08:09)
[2018-09-18] MEDS: Pantoprazole 40 mg EC Tab PO SCH (08:09)
[2018-09-18] MEDS: NYSTATIN 100000 UNITS/GM POWD TP SCH ×3 (08:10→20:15)
[2018-09-18] MEDS: Polyvinyl Alcohol Ophth Soln 15 mL Bottle EACH EYE SCH ×2 (08:10→16:04)
[2018-09-18] MEDS: Rivastigmine 9.5 mg/24 hr Tdm TD SCH (08:10)
[2018-09-18] MEDS: Budesonide 0.5 Mg/2 mL Ud HHN SCH (08:24)
--- NOTE | 2018-09-18 15:11 | General Progress Note ---
Subjective - Review of Systems Service Date: 09/18/18 Subjective: Patient has no complaint of chest pain palpitation less shortness of breath Objective - Results Result Diagrams: 09/18/18 04:45 09/18/18 04:45 Recent Labs: Laboratory Last Values WBC 11.5 Th/cmm (4.8-10.8) H 09/18/18 04:45 RBC 4.13 Mil/cmm (3.80-5.80) 09/18/18 04:45 Hgb 12.1 gm/dL (12-16) 09/18/18 04:45 Hct 37.2 % (41.0-60) L 09/18/18 04:45 MCV 90.3 fl (80-99) 09/18/18 04:45 MCH 29.4 pg (27.0-31.0) 09/18/18 04:45 MCHC Differential 32.6 pg (28.0-36.0) 09/18/18 04:45 RDW 15.5 % (11.5-20.0) 09/18/18 04:45 Plt Count 155 Th/cmm (150-400) 09/18/18 04:45 MPV 9.6 fl 09/18/18 04:45 Neutrophils % 61.7 % (40.0-80.0) 09/18/18 04:45 Lymphocytes % 25.5 % (20.0-50.0) 09/18/18 04:45 Monocytes % 8.2 % (2.0-10.0) 09/18/18 04:45 Eosinophils % 4.2 % (0.0-5.0) 09/18/18 04:45 Basophils % 0.4 % (0.0-2.0) 09/18/18 04:45 Sodium 140 mEq/L (136-145) 09/18/18 04:45 Potassium 3.9 mEq/L (3.5-5.1) 09/18/18 04:45 Chloride 105 mEq/L (98-107) 09/18/18 04:45 Carbon Dioxide 27.1 mEq/L (21.0-31.0) 09/18/18 04:45 Anion Gap 11.8 (7.0-16.0) 09/18/18 04:45 BUN 36 mg/dL (7-25) H 09/18/18 04:45 Creatinine 1.3 mg/dL (0.7-1.3) 09/18/18 04:45 Est GFR ( Amer) > 60.0 ml/min (>90) 09/18/18 04:45 Est GFR (Non-Af Amer) 58.3 ml/min 09/18/18 04:45 BUN/Creatinine Ratio 27.7 09/18/18 04:45 Glucose 108 mg/dL (70-105) H 09/18/18 04:45 POC Glucose 145 MG/DL (70 - 105) H 09/18/18 12:55 Calcium 8.6 mg/dL (8.6-10.3) 09/18/18 04:45 Magnesium 2.1 mg/dL (1.9-2.7) 09/16/18 04:49 Total Bilirubin 0.5 mg/dL (0.3-1.0) 09/18/18 04:45 AST 15 U/L (13-39) 09/18/18 04:45 ALT 12 U/L (7-52) 09/18/18 04:45 Alkaline Phosphatase 111 U/L (34-104) H 09/18/18 04:45 Troponin I 0.01 ng/mL (0.01-0.05) 09/16/18 10:20 Total Protein 6.0 gm/dL (6.0-8.3) 09/18/18 04:45 Albumin 3.0 gm/dL (4.2-5.5) L 09/18/18 04:45 Globulin 3.0 gm/dL 09/18/18 04:45 Albumin/Globulin Ratio 1.0 (1.0-1.8) 09/18/18 04:45 Urine Source MIDSTREAM 09/15/18 21:05 Urine Color STRAW 09/15/18 21:05 Urine Clarity CLEAR (CLEAR) 09/15/18 21:05 Urine pH 7.0 (4.6 - 8.0) 09/15/18 21:05 Ur Specific [place] 1.010 (1.005-1.030) 09/15/18 21:05 Urine Protein NEGATIVE mg/dL (NEGATIVE) 09/15/18 21:05 Urine Glucose (UA) NEGATIVE mg/dL (NEGATIVE) 09/15/18 21:05 Urine Ketones NEGATIVE mg/dL (NEGATIVE) 09/15/18 21:05 Urine Blood TRACE (NEGATIVE) 09/15/18 21:05 Urine Nitrate NEGATIVE (NEGATIVE) 09/15/18 21:05 Urine Bilirubin NEGATIVE (NEGATIVE) 09/15/18 21:05 Urine Urobilinogen 0.2 E.U./dL (0.2 - 1.0) 09/15/18 21:05 Ur Leukocyte Esterase NEGATIVE (NEGATIVE) 09/15/18 21:05 Urine RBC 0-2 /hpf (0-5) H 09/15/18 21:05 Urine WBC 0-2 /hpf (0-5) 09/15/18 21:05 Ur Epithelial Cells NONE SEEN /lpf (FEW) 09/15/18 21:05 Urine Bacteria NONE SEEN /hpf (NONE SEEN) 09/15/18 21:05 - Physical Exam Vitals and I&O: Vital Signs Temp 97.3 F 09/18/18 11:31 Pulse 99 09/18/18 11:31 Resp 18 09/18/18 14:14 BP 117/65 09/18/18 11:31 Pulse Ox 98 09/18/18 11:31 Intake & Output 09/17/18 09/18/18 09/18/18 18:59 06:59 18:59 Intake Total 600 60 Output Total 900 550 Balance -300 -490 Weight (lbs) 128.99 kg 131.995 kg Intake: Oral 600 60 Output: Urine 900 550 Other: Stool Characteristics Soft Soft Soft Formed Formed Formed Weight Source Bedscale Bedscale Active Medications: Current Medications Acetaminophen (Tylenol) 650 mg PO Q4HR PRN PRN Reason: Pain or Fever >101 Stop: 11/14/18 18:16 Albuterol/Ipratropium (Duoneb Neb) 3 ml HHN Q4HRT PRN PRN Reason: Shortness of Breath Stop: 11/14/18 18:16 Allopurinol (Zyloprim) 100 mg PO DAILY [facility] Stop: 11/15/18 08:59 Last Admin: 09/18/18 08:09 Dose: 100 mg Artificial Tears (Artificial Tears Ophth Soln) 1 drop EACH EYE BID [facility] Stop: 11/15/18 08:59 Last Admin: 09/18/18 08:10 Dose: 1 drop Atorvastatin Calcium (Lipitor) 60 mg PO HS [facility] Stop: 11/15/18 20:59 Last Admin: 09/17/18 21:17 Dose: 60 mg Budesonide (Pulmicort) 0.5 mg HHN DAILY [facility] Stop: 11/15/18 11:14 Last Admin: 09/18/18 08:24 Dose: 0.5 mg Dextrose (D50w) 50 ml IVP PRN PRN PRN Reason: BS BELOW 60 & NOT TOLERATE PO Docusate Sodium (Colace) 100 mg PO BID [facility] Stop: 11/14/18 21:44 Last Admin: 09/18/18 08:09 Dose: 100 mg Escitalopram Oxalate (Lexapro) 40 mg PO DAILY [facility]; Protocol Stop: 11/14/18 19:59 Last Admin: 09/18/18 08:09 Dose: 40 mg Ferrous Sulfate (Iron) 325 mg PO DAILY [facility] Stop: 11/15/18 08:59 Last Admin: 09/18/18 08:08 Dose: 325 mg Finasteride (Proscar) 5 mg PO DAILY [facility]; Protocol Stop: 11/14/18 19:59 Last Admin: 09/18/18 08:08 Dose: 5 mg Insulin Aspart (Novolog Insulin Sliding Scale) 0 units SUBQ ACHS [facility]; Protocol Stop: 11/14/18 20:59 Last Admin: 09/18/18 11:45 Dose: Not Given Isosorbide Mononitrate (Imdur) 120 mg PO DAILY [facility] Stop: 11/15/18 08:59 Last Admin: 09/18/18 08:10 Dose: 120 mg Levetiracetam (Keppra) 750 mg PO BID [facility] Stop: 11/14/18 21:44 Last Admin: 09/18/18 08:08 Dose: 750 mg Lorazepam (Ativan) 0.5 mg PO Q12HR [facility]; Protocol Stop: 11/14/18 20:59 Last Admin: 09/18/18 08:08 Dose: 0.5 mg Metoprolol Succinate (Toprol Xl) 25 mg PO DAILY [facility] Stop: 11/15/18 08:59 Last Admin: 09/18/18 08:09 Dose: 25 mg Miscellaneous (Clinical Monitoring) 1 ea MC DAILY PRN PRN Reason: RENAL DOSING- XARELTO Stop: 11/15/18 15:18 Nitroglycerin (Nitrostat) 0.4 mg SL Q5MIN PRN PRN Reason: Chest Pain Nystatin (Nystop) 100 units TP TID [facility] Stop: 11/16/18 09:59 Last Admin: 09/18/18 13:25 Dose: 100 units Pantoprazole Sodium (Protonix) 40 mg PO DAILY@0730 [facility] Stop: 11/14/18 20:59 Last Admin: 09/18/18 08:09 Dose: 40 mg Quetiapine Fumarate (Seroquel) 50 mg PO BID [facility]; Protocol Stop: 11/14/18 19:59 Last Admin: 09/18/18 08:08 Dose: 50 mg Rivaroxaban (Xarelto) 20 mg PO DAILY [facility] Stop: 11/16/18 08:59 Last Admin: 09/18/18 08:09 Dose: 20 mg Rivastigmine (Exelon 9.5 Mg/24 Hr Tdm) 1 patch TD DAILY [facility] Stop: 11/15/18 08:59 Last Admin: 09/18/18 08:10 Dose: 1 patch Sodium Chloride (Saline Flush) 10 ml IV QSHIFT [facility] Stop: 11/14/18 19:59 Last Admin: 09/18/18 08:11 Dose: 10 ml Tamsulosin HCl (Flomax) 0.8 mg PO HS [facility] Stop: 11/14/18 20:59 Last Admin: 09/17/18 21:17 Dose: 0.8 mg General: Mild distress HEENT: PERRLA, Other (normal) Neck: Supple, JVD, +2 carotid pulse wo bruit (10 cm above sternal angle) Cardiovascular: Systolic murmurs, Other (atrial fibrillation) Lungs: Other (basilar rales location of the) Abdomen: Soft Extremities: Edema Assessment/Plan - Assessment Assessment: Syncope Atrial fibrillation Diabetes mellitus type 2 Hypertension Stable angina Coronary artery disease with stent placement Hyperlipidemia Dementia Psychotic disorder BPH COPD - Plan Plan: Continue present management continue anticoagulation Patient is stable for discharge Nutritional Asmnt/Malnutr-PDOC - Dietary Evaluation Malnutrition Findings (Please click <Entered> for more info): Nutritional Asmnt/Malnutrition Start: 09/18/18 14: 44 Text: Status: Active Freq: Protocol: Document 09/18/18 14:44 [email or web address] (Rec: 09/18/18 14:52 [email or web address]) Nutritional Asmnt/Malnutrition Patient General Information Nutritional Screening Moderate Risk Diagnosis hypotension Pertinent Medical Hx/Surgical Hx DM, HTN, hyperlipidemia, degenerative joint disease, dementia, chronic Afib, DJD, CVA, BPH, UTI Subjective Information Pt was seen being transfered to [facility] at time of visit . Pt did not appear well, vital signs were being taken. PO intake is 50-75% per EMR. Current Diet Order/ Nutrition Support cardiac, lochol/lofat/2gm Na Pertinent Medications lipitor, D50w, colace, iron, novolog, protonix, seroquel Pertinent Labs 09/18 BUN 36, glu 108, POC 104- 145 09/17 POC 106-163 Nutritional Hx/Data Height 1.68 m Height (Calculated Centimeters) 167.6 Current Weight (lbs) 131.995 kg Weight (Calculated Kilograms) 132.0 Weight (Calculated Grams) 562218.4 [place] Body Weight 142 Body Mass Index (BMI) 47.0 Weight Status Morbidly Obese GI Symptoms GI Symptoms None Last BM 09/16 Difficult in: None Food Allergies No Skin Integrity/Comment: scabs to bilateral forearm, reddened abdominal folds, blister right lateral thigh gunjan 13 Current %PO Fair (50-74%) Estimated Nutritional Goals BEE in Kcals: Adj wt of IBW Calories/Kcals/Kg 25-30 Kcals Calculated 8953-6547 Protein: Adj wt of IBW Protein g/k.8-1 Protein Calculated 65-81 Fluid: ml 4716-4628 (1ml/kcal) Nutritional Problem 1. Problem Problem altered nutrition related labs Etiology hyperglycemia Signs/Symptoms: POC 104-163 Malnutrition Alert Is there a minimum of two criteria No selected? Query Text:Check all the applicable criteria. A minimum of two criteria are recommended for diagnosis of either severe or non-severe malnutrition. Malnutrition Related to Morbid Obesity Malnutrition related to morbid obesity No Intervention/Recommendation Comments 1. Continue with cardiac lochol/lofat/2gm Na diet as ordered. 2. MD to adjust insulin regimen for optimal glycemic control 3. Monitor PO intake, wt, labs and skin integrity 4. F/U as moderate risk in 3-5 days Expected Outcomes/Goals Expected Outcomes/Goals 1. PO intake to meet at least 75% of nutritional needs. 2. Wt stability, skin to remain intact, labs to approach WNL.
--- NOTE | 2018-09-18 15:50 | Progress Notes ---
DATE: 09/18/2018 PATIENT'S ID: A 68-year-old male. SUBJECTIVE: The patient is seen and examined. No new complaint. Diagnostic studies are currently pending. Psych input is currently pending. The patient remained hemodynamically stable. The patient has been seen by remediation bioanalytics consultant. PHYSICAL EXAMINATION: VITAL SIGNS: Temperature 98.6, pulse 74, respiratory rate 18, blood pressure 130/60. HEENT: No facial asymmetry. NECK: Supple, no JVD. HEART: Regular. CHEST AND LUNGS: Equal in expansion, no expiratory wheezing. ABDOMEN: Soft. EXTREMITIES: No edema. CLINICAL IMPRESSION: 1. Status post syncopal episode. 2. Dementia. 3. Atrial fibrillation. 4. Coronary artery disease. 5. Diabetes. 6. Hypertension. 7. Degenerative joint disease. 8. Psychotic disorder. PLAN: Discharge plan to lower level of care once the patient is cleared by the psychiatrist as well as the remediation bioanalytics consultant. Medical management for his underlying medical problem. Care plan reviewed. JOB# [id number]
[2018-09-18] MEDS: Atorvastatin Calcium 10 MG TAB PO SCH (20:16)
[2018-09-19] MEDS: Pantoprazole 40 mg EC Tab PO SCH (06:29)
[2018-09-19] MEDS: INSULIN ASPART SLIDING SCALE 100 UNITS/ML UNIT SUBQ SCH ×4 (06:29→20:37)
[2018-09-19] MEDS: Budesonide 0.5 Mg/2 mL Ud HHN SCH (08:07)
--- NOTE | 2018-09-19 08:44 | Diagnostic Imaging Report ---
Ultrasound urinary bladder HISTORY: Urinary retention Prevoid urinary volume equals 135.1 cc. Postvoid evaluation could not be determined due to incontinence. There appears to be mild generalized thickening of the urinary bladder wall. The finding should be correlated clinically. No other focal intraluminal abnormalities.
[2018-09-19] MEDS: Ferrous Sulfate 325 MG TAB PO SCH (08:53)
[2018-09-19] MEDS: Multivitamin w/ Minerals Tab PO SCH (08:53)
[2018-09-19] MEDS: NYSTATIN 100000 UNITS/GM POWD TP SCH ×3 (08:54→20:34)
[2018-09-19] MEDS: Rivastigmine 9.5 mg/24 hr Tdm TD SCH (08:54)
[2018-09-19] MEDS: Polyvinyl Alcohol Ophth Soln 15 mL Bottle EACH EYE SCH ×2 (08:54→16:30)
--- NOTE | 2018-09-19 13:35 | Progress Notes ---
DATE: 09/18/2018 SUBJECTIVE: The patient is lying in bed, awake, alert. The patient initially sleepy, but will sit up. He is obviously confused, but able to answer questions. Staff tells me that when he tries to walk, patient is somewhat unsteady and weak, but no repeat episodes of passing out. OBJECTIVE: VITAL SIGNS: Temperature 97.3, blood pressure 122/70, pulse is 90. NECK: Supple, no bruits. CARDIOVASCULAR: Heart sounds S1, S2. RESPIRATORY: Lungs clear. NEUROLOGIC: The patient is initially sleepy, in a Marian chair. The patient then will open eyes, actually answers questions to me, obviously confused. DIAGNOSTIC DATA: Workup neurologically CAT scan negative. Carotid Doppler negative. ASSESSMENT: 1. Loss of consciousness, syncope, no seizure. 2. Fall. 3. Ataxia. Will need physical therapy, ambulation. 4. Dementia. 5. Atrial fibrillation. 6. Diabetes. 7. Hypertension. 8. Hyperlipidemia. 9. Arthritis. PLAN: Physical therapy, ambulation. Cardiology. JOB# [id number]
--- NOTE | 2018-09-19 19:28 | Progress Notes ---
DATE: 09/19/2018 SUBJECTIVE: The patient in bed, awake. He will answer questions and actually interact quite well. No headache. No seizures. OBJECTIVE: VITAL SIGNS: 98.6, blood pressure 135/62, pulse is 73. NECK: Supple, no bruits. CARDIOVASCULAR: Heart sounds S1, S2. RESPIRATORY: Lungs clear. NEUROLOGIC: The patient is awake, alert. He will answer questions. Somewhat withdrawn, but gives me his name. The patient is somewhat confused. Able to name simple objects. INVESTIGATIONS: CT scan head negative. Carotid Doppler negative. Labs negative. ASSESSMENT: 1. Loss of consciousness, syncope. No definite seizure. 2. Ataxia, will need physical therapy, ambulation. The patient is high risk of falls. 3. History of falls. 4. Dementia. 5. Atrial fibrillation. 6. Diabetes. 7. Hypertension. 8. Hyperlipidemia. 9. Arthritis. PLAN: Physical therapy, Cardiology. JOB# [id number]
[2018-09-19] MEDS: Atorvastatin Calcium 10 MG TAB PO SCH (20:35)
--- NOTE | 2018-09-20 00:37 | Progress Notes ---
DATE: PATIENT'S IDENTIFICATION: A 68-year-old male. SUBJECTION: The patient seen and examined. The patient is lying in the bed. The patient is very comfortable. No arrhythmia reported. PHYSICAL EXAMINATION: VITAL SIGNS: Temperature 98, pulse 80, respiratory rate 18, blood pressure 118/70. HEENT: No facial asymmetry. NECK: Supple, no JVD. HEART: Regular. CHEST AND LUNGS: Equal in expansion, no expiratory wheezing. ABDOMEN: Soft. No guarding, no rigidity. Bowel sounds present. No palpable mass. EXTREMITIES: No edema. NEUROLOGIC: Alert, awake, follows command. AVAILABLE DIAGNOSTIC DATA: Glucoscan is reviewed. CLINICAL IMPRESSION: 1. Status post syncopal episode. 2. Chronic atrial fibrillation. 3. Diabetes. 4. Hypertension. 5. Degenerative joint disease. 6. Dementia. 7. Psychotic disorder. 8. Benign prostatic hypertrophy. 9. Chronic obstructive pulmonary disease. PLAN: The patient is stable for discharge to lower level of care. The patient has been cleared by the senior occupational therapist as well as a neurologist, physical therapy. Ambulation has been requested. Awaiting psych clearance in order to discharge this patient to lower level of care. Care plan has been reviewed and discussed with staff. JOB# [id number]
[2018-09-20] MEDS: Pantoprazole 40 mg EC Tab PO SCH (06:35)
[2018-09-20] MEDS: INSULIN ASPART SLIDING SCALE 100 UNITS/ML UNIT SUBQ SCH ×2 (06:39→11:55)
[2018-09-20] MEDS: Multivitamin w/ Minerals Tab PO SCH (09:08)
[2018-09-20] MEDS: Ferrous Sulfate 325 MG TAB PO SCH (09:08)
[2018-09-20] MEDS: Polyvinyl Alcohol Ophth Soln 15 mL Bottle EACH EYE SCH (09:09)
[2018-09-20] MEDS: Rivastigmine 9.5 mg/24 hr Tdm TD SCH (09:10)
[2018-09-20] MEDS: NYSTATIN 100000 UNITS/GM POWD TP SCH ×2 (09:10→14:13)
--- NOTE | 2018-09-20 16:16 | Discharge Summary ---
DATE OF DISCHARGE: 09/20/2018 PATIENT'S ID: A 68-year-old male. PRINCIPAL DIAGNOSES: 1. Status post syncopal episode, most likely secondary to medication related and vasovagal. 2. Diabetes mellitus. 3. Chronic atrial fibrillation. 4. Hypertension. 5. Hyperlipidemia. 6. Degenerative joint disease. 7. Psychotic disorder. 8. Alzheimer's type dementia. 9. Status post angioplasty status. 10. Cutaneous candidiasis. 11. LVH with ejection fraction of 50%. 12. Benign prostatic hypertrophy along with depressions and questionable seizure disorder. BRIEF STATEMENT FOR THE REASON FOR ADMISSION: A 68-year-old male transferred from Geropsych Unit to ICU after the patient had altered mental status and hypotension. The patient was evaluated and subsequently admitted to ICU. Please refer to my H and P for further information. HOSPITAL COURSE: The patient was admitted to ICU. The patient was given admission labs, chest x-ray, urinalysis, which were unremarkable. Cardiac monitoring was unremarkable for any cardiac arrhythmia. Neuro check was also clinically initiated. The patient was placed on apixaban for chronic atrial fibrillation. CT head was unremarkable. The patient was also placed on appropriate home medicine reconciliation. The patient was followed by all the consultants and appropriate workup was done. The patient did have no further loss of consciousness and patient remained stable. The patient was transferred to telemetry unit until the patient was discharged. The patient did have a clearance by the human resources consultant. The patient can be discharged to lower level of care. The patient's daughter requested to transfer this patient to [facility] and the patient was transferred on 09/20/2018. At the time of discharge, all of his medicines were reconciliated. The patient will be continued to receive the medications as the patient was receiving here in the hospital. JOB# [id number]
--- NOTE | 2018-09-20 19:01 | Progress Notes ---
DATE: 09/20/2018 I attempted to call the patient's daughter at [phone], today, 09/20/2018. Left a voice message with my call back information. JOB# [id number]
--- NOTE | 2018-09-20 19:28 | Progress Notes ---
DATE: 09/20/2018 SUBJECTIVE: The patient is in bed, awake, alert, just had breakfast. Talking okay. The patient has no headache, no seizures, no passing out. OBJECTIVE: VITAL SIGNS: Temperature 98.4, blood pressure 140/65, pulse is 72. NECK: Supple, no bruits. CARDIOVASCULAR: Heart sounds S1, S2. RESPIRATORY: Lungs clear. NEUROLOGIC: The patient is awake. He is answering. Follows my instruction, lift both arms up. He will squeeze with the right and left. INVESTIGATIONS: CT scan head negative. Carotid Doppler is negative. ASSESSMENT: 1. Loss of consciousness, syncope, no definite seizure. 2. Ataxia needs physical therapy, ambulation. The patient had a fall. 3. History of falls. 4. Dementia. 5. Atrial fibrillation. 6. Diabetes. 7. Hypertension. 8. Hyperlipidemia. 9. Arthritis. PLAN: Continue present treatment. Physical therapy, Cardiology. JOB# [id number]
--- NOTE | 2018-09-20 22:51 | Progress Notes ---
DATE: 09/20/2018 The patient is seen and examined. The patient is lying in the bed. No new event. PHYSICAL EXAMINATION: VITAL SIGNS: Temperature 98.1, pulse 66, respiratory rate 18, blood pressure 140/68. HEENT: No facial asymmetry. NECK: Supple, no JVD. HEART: Regular. CHEST: Lung equal in expansion, no expiratory wheezing. ABDOMEN: Soft. EXTREMITIES: No edema. NEUROLOGIC: Alert, awake, follows commands. CLINICAL IMPRESSION: 1. Status post syncopal episode, probably secondary to vasovagal and may be second to medication. 2. Coronary artery disease, status post stent placement. 3. Hypertension. 4. Hyperlipidemia. 5. Degenerative joint disease. 6. Dementia. 7. Psychotic disorder. 8. Cutaneous candidiasis. PLAN: The patient is stable to be discharged to lower level of care. Discharge summary is completed. Medications reconciled. [facility]# [id number]
--- NOTE | 2018-09-21 01:23 | Consultation ---
DATE OF CONSULTATION: 09/20/2018 HISTORY OF PRESENT ILLNESS: The patient coming into the hospital with multiple medical problems. Apparently was having some agitation and confusion. On [id number], the patient is AO to name, not place, not situation and he knows the year, knows the month. He is not quite sure about the day of the week. Staff noting no behaviors, no agitation, no escalation of behaviors. The patient believes he is here for "constipation." He states his mood is "okay. Sleep "okay." Minimal historian, but is apparently more interactive than he has been based on previous notes. Per Neurology, the patient has a diagnosis of dementia. He may have been delirious upon initial presentation, but per staff, he has been significantly calmer, more cooperative. Discussed with nursing staff. PAST PSYCHIATRIC HISTORY: Dementia. SOCIAL HISTORY: He tells me he was born in [place]. Not . He states he has 3 children. It seems he was an active alcoholic. MENTAL STATUS EXAMINATION: Stated age. Fair eye contact. Speech, low volume. Mood "okay." Affect flat. Thought processes were confused. No SI, no HI. No overt psychotic symptoms. Insight and judgment seem diminished. Better impulse control. MEDICATIONS: Noted. He is on a higher than recommended dose of Lexapro. I will decrease his dose from 40 mg to 30 mg with the recommendation of tapering down to 20 mg, which is the recommended FDA maximum dose of this medication. PROVISIONAL DIAGNOSIS: Dementia, dementia with behaviors, possible delirium with resolution. The patient may currently be at his baseline. He is calm, but confused. Medical problems were noted. ASSESSMENT AND PLAN: A 68-year-old male documentation of dementia, remains confused, disoriented, but calm. No current behavioral disturbances. It does not appear that the patient is meeting any criteria for Geropsych placement. We will attempt also to reach out to family. JOB# [id number]
== END 2018-09-20 15:15 | DRG 312 ==
LOC: ICU 11:57 → TELE 09-16 18:02
PROVIDERS: ADMIT Internal Medicine; ATTEND Internal Medicine
DX: R55 Syncope and collapse (principal); B37.89 Other sites of candidiasis; I48.91 Unspecified atrial fibrillation; E11.9 Type 2 diabetes mellitus without complications; E78.5 Hyperlipidemia, unspecified; M19.90 Unspecified osteoarthritis, unspecified site; N40.0 Benign prostatic hyperplasia without lower urinary tract symptoms; F29 Unspecified psychosis not due to a substance or known physiological condition; J44.9 Chronic obstructive pulmonary disease, unspecified; W18.30XA Fall on same level, unspecified, initial encounter; Y93.89 Activity, other specified; Y92.89 Other specified places as the place of occurrence of the external cause; I12.9 Hypertensive chronic kidney disease with stage 1 through stage 4 chronic kidney disease, or unspecified chronic kidney disease; Y99.8 Other external cause status; I25.119 Atherosclerotic heart disease of native coronary artery with unspecified angina pectoris; R27.0 Ataxia, unspecified; T50.905A Adverse effect of unspecified drugs, medicaments and biological substances, initial encounter; G30.9 Alzheimer's disease, unspecified; N18.3 Chronic kidney disease, stage 3 (moderate); F02.80 Dementia in other diseases classified elsewhere, unspecified severity, without behavioral disturbance, psychotic disturbance, mood disturbance, and anxiety; E11.22 Type 2 diabetes mellitus with diabetic chronic kidney disease; G40.909 Epilepsy, unspecified, not intractable, without status epilepticus; I95.9 Hypotension, unspecified; Z95.5 Presence of coronary angioplasty implant and graft; Z88.2 Allergy status to sulfonamides; Z79.4 Long term (current) use of insulin; Z91.81 History of falling; Z86.73 Personal history of transient ischemic attack (TIA), and cerebral infarction without residual deficits
CPT/HCPCS: 36415-UA; 71045-TC; 76857-TC; 80053-TC; 81001-TC; 82948-90; 83735-TC; 84484-TC; 85025-TC; 93005; 93880-TC; 94640; 94760; 97530; J1815; X3904; Z7610

== ENCOUNTER 2019-02-03 19:36 | Inpatient (IN) | payer MEDICARE, OTHER ==
--- NOTE | 2019-02-03 20:11 | ED Physician Chart ---
ED Chief Complaint/HPI - Patient Information Date Seen:: 02/03/19 Time Seen:: 20:05 Chief Complaint:: agitation History of Present Illness:: 68 yr old male here for geropsych eval pt awake and per intermediate has been striking at staff increased aggression and confusion hitting himself and has bandages Allergies:: Allergies Allergy/AdvReac Type Severity Reaction Status Date / Time iodine Allergy Verified 09/03/18 22:17 Sulfa (Sulfonamide Allergy Verified 09/03/18 22:17 Antibiotics) Vitals:: Vital Signs - 8 hr 02/03/19 19:40 Temp 98.3 F HR 83 RR 17 BP 115/68 O2 Sat % 97 ED Review of Systems - Review of Systems General/Constitutional: No fever Skin: Skin lesions Head: No headache Eyes: No loss of vision ENT: No earache Neck: No neck pain Pulmonary: SOB GI: No vomiting G/U: No dysuria Endocrine: No polyuria Psychiatric: Prior psych history, Depression, Anxiety, Other (bipolar) Hematopoietic: Bruising Allergic/Immuno: Urticaria Neurological: No syncope ED Past Medical History - Past Medical History Past Medical History: HTN, DM, CAD, CHF, Asthma/COPD, CVA/TIA, Dementia, Other ( anemia bph afib) Family Medical History - Family Member Mother History Unknown: Yes ED Physical Exam - Physical Examination General/Constitutional: Well-developed, well-nourished, Alert Eyes: Lids, conjuctiva normal Other Skin comments:: has scratches arms with many bandages ENMT: External ears, nose nl Neck: Nontender Other Respiratory comments:: occasional crackles Other Cardio Vascular comments:: irregularly irregular Other Extremities comments:: marked edema legs ED Assessment - Assessment General Assessment: bipolar dementia agitation worsening confusion multiple medical problems ED Septic Shock - . Is Septic Shock (SBP<90, OR Lactate>4 mmol\L) present?: No - <6hrs of presentation: Vital Signs: Vital Signs - 8 hr 02/03/19 19:40 Temp 98.3 F HR 83 RR 17 BP 115/68 O2 Sat % 97 ED Reassessment (Disposition) - Reassessment Reassessment:: bipolar agitation confusion multiple medical problems - Diagnosis Diagnosis:: as above - Patient Disposition Admitted to:: [facility] Condition at Disposition:: Stable
[2019-02-03 20:42] LABS: HEMOGLOBIN 11.6 gm/dL (12-16); RED BLOOD COUNT 3.84 Mil/cmm (3.80-5.80)
[2019-02-03 20:43] LABS: % BASOPHILS 0.4 % (0.0-2.0); % EOSINOPHILS 3.6 % (0.0-5.0); % LYMPHOCYTES 30.1 % (20.0-50.0); % MONOCYTES 8.6 % (2.0-10.0); % NEUTROPHILS 57.3 % (40.0-80.0); EOSINOPHILE ABSOLUTE 0.3 Th/cmm (0.1-0.4); HEMATOCRIT 34.9 % (41.0-60); LYMPHOCYTE ABSOLUTE 2.7 Th/cmm (1.5-3.0); MEAN CELL VOLUME 90.7 fl (80-99); MEAN CORPUSCULAR HEMOGLOBIN 30.3 pg (27.0-31.0); MEAN CORPUSCULAR HGB CONC 33.4 pg (28.0-36.0); MONOCYTE ABSOLUTE 0.8 Th/cmm (0.3-1.0); NEUTROPHILE ABSOLUTE 5.2 Th/cmm (1.8-8.0); PLATELET COUNT 152 Th/cmm (150-400); RED CELL DISTRIBUTION WIDTH 14.2 % (11.5-20.0)
[2019-02-03 20:45] LABS: ANION GAP 11.8 (7.0-16.0); CARBON DIOXIDE 25.2 mEq/L (21.0-31.0); CHLORIDE 105 mEq/L (98-107); SODIUM SERUM 138 mEq/L (136-145)
[2019-02-03 20:46] LABS: ALB/GLOB RATIO 1.2 (1.0-1.8); ALBUMIN 3.5 gm/dL (4.2-5.5); ALKALINE PHOSPHATASE 131 U/L (34-104); BILIRUBIN,TOTAL 0.4 mg/dL (0.3-1.0); BUN - UREA NITROGEN 34 mg/dL (7-25); CALCIUM SERUM 8.8 mg/dL (8.6-10.3); CREATININE - SERUM 1.1 mg/dL (0.7-1.3); GFR AFRICAN-AMERICAN > 60.0 ml/min (>90); GFR NON AFRICAN-AMERICAN > 60.0 ml/min; GLUCOSE 132 mg/dL (70-105); SGOT 15 U/L (13-39); SGPT/ALT 17 U/L (7-52); TOTAL PROTEIN,SERUM 6.4 gm/dL (6.0-8.3)
[2019-02-03 21:35] VITALS: BP 131/82
[2019-02-03] MEDS ORDERED: Acetaminophen 500 MG TAB PO PRN (22:02)
[2019-02-03] MEDS ORDERED: GLUCAGON HUMAN RECOMBINANT 1 MG IJ PRN (22:16)
[2019-02-03] MEDS ORDERED: GLUCAGON HCl 1 MG KIT IM PRN (22:27)
[2019-02-03] MEDS ORDERED: Dextrose 50% 50 mL Abboject IVP PRN (22:27)
[2019-02-03] MEDS ORDERED: Atorvastatin Calcium 10 MG TAB PO SCH (23:30)
[2019-02-03] MEDS: Atorvastatin Calcium 10 MG TAB PO SCH (23:31)
[2019-02-04 01:51] LABS: CHOLESTEROL 94 mg/dL (<200); HDL -HIGH DENSITY LIPOPROTEIN 28 mg/dL (23-92); TRIGLYCERIDES 110 mg/dL (<150)
[2019-02-04] MEDS: INSULIN LISPRO SLIDING SCALE 100 UNITS/ML UNIT SUBQ SCH ×4 (06:51→21:32)
[2019-02-04] MEDS ORDERED: Budesonide 0.5 Mg/2 mL Ud HHN ONE (07:13)
[2019-02-04] MEDS: Budesonide 0.5 Mg/2 mL Ud HHN SCH ×2 (07:14→19:18)
[2019-02-04] MEDS: Potassium Chloride 20 mEq ER Tab PO SCH (08:15)
[2019-02-04] MEDS: Ferrous Sulfate 325 MG TAB PO SCH (08:16)
[2019-02-04] MEDS: Aspirin 81mg Chewable Tab PO SCH (08:16)
[2019-02-04] MEDS ORDERED: CITALOPRAM HYDROBROMIDE 40 MG PO SCH (09:00)
[2019-02-04] MEDS ORDERED: RIVASTIGMINE TP SCH (09:00)
[2019-02-04] MEDS ORDERED: Non-Formulary Item 1 EA (Isosorbide Mononitrate [Isosorbide Mononitrate Er] 60 MG) PO SCH (09:00)
[2019-02-04] MEDS ORDERED: Non-Formulary Item 1 EA (Docusate Sodium [Docusate Sodium] 100 MG) PO SCH (09:00)
[2019-02-04] MEDS ORDERED: Non-Formulary Item 1 EA (Buspirone Hcl [Buspirone Hcl] 10 MG) PO SCH (09:00)
[2019-02-04] MEDS ORDERED: GLUCAGON HCl 1 MG KIT IM PRN (12:39)
--- NOTE | 2019-02-04 16:06 | History & Physical ---
ADMIT DATE: 02/04/2019 CHIEF COMPLAINT: Agitation. HISTORY OF PRESENT ILLNESS: A 68-year-old male who is a senior living resident, admitted to the Geropsych Unit due to agitation, striking against the nursing staff at the senior living. PAST MEDICAL HISTORY: Hypertension, diabetes, CAD, CHF, asthma, COPD, CVA, dementia, anemia, BPH, AFib. FAMILY HISTORY: Noncontributory. SOCIAL HISTORY: The patient is a senior living resident. FAMILY HISTORY: Noncontributory. REVIEW OF SYSTEMS: All systems are reviewed. PHYSICAL EXAMINATION: GENERAL: The patient is well developed, well nourished, no apparent distress. VITAL SIGNS: Temperature 97.2, heart rate 95, blood pressure 129/86, respirations 19, O2 sat 97%. HEENT: Head; normocephalic, atraumatic. NECK: Supple. No mass. LUNGS: Clear bilaterally. HEART: Regular rhythm. ABDOMEN: Soft, nontender. LABORATORY DATA: WBC 9.0, H and H 11.6/34.9, platelet 152. Sodium 138, potassium 4.0, chloride 105, BUN 34, creatinine 1.1, albumin is 3.5. ASSESSMENT: Agitation, hypertension, diabetes, congestive heart failure, chronic obstructive pulmonary disease, history of cerebrovascular accident, anemia, benign prostatic hyperplasia, history of atrial fibrillation, vasomotor nephropathy, moderate protein-calorie malnutrition. PLAN: The patient to be admitted to the Geropsych Unit. We will continue the patient's medications from the senior living. Fall precautions will be initiated. We will continue to monitor this patient. [facility]# [id number]
[2019-02-04] MEDS ORDERED: ATORVASTATIN CALCIUM PO SCH (21:00)
[2019-02-04] MEDS ORDERED: Pantoprazole 40 mg EC Tab PO SCH (21:00)
[2019-02-04] MEDS: Atorvastatin Calcium 10 MG TAB PO SCH (21:30)
--- NOTE | 2019-02-04 23:46 | Psychiatric Evaluation ---
DATE OF SERVICE: PSYCHIATRIC INITIAL EVALUATION AND MENTAL STATUS EXAM. AGE: 68. SEX: Male. PHYSICIAN: Dr. Dallas. CHIEF COMPLAINT: Aggressive behavior and striking out and increased confusion with episodes of hitting himself. HISTORY OF PRESENT ILLNESS: The patient is a 68-year-old male who was transferred to the hospital from [facility]. The patient has been increasingly agitated and aggressive with the staff and also has episodes of hitting himself. The patient also has been confused and has been having striking out behavior. Chart reviewed and the patient interviewed and discussed the patient's condition with the staff. The patient currently seems to be calm. He seems to be confused at times and in the beginning of my interview, the patient did not know where he lives and also if he is or not. Later on, he told me that he has 3 children and he remembered their names and he also remembered his date, but he did not remember today's date or year. The patient also seems to be preoccupied and was slow to respond to questions. He was not able to tell me reasons for his anger and any reason for him being upset or depressed. Again, during the interview, the patient was calm most of the time. PAST PSYCHIATRIC HISTORY: The patient seems to have history of bipolar disorder and the patient is taking Celexa and Abilify. PAST MEDICAL HISTORY: The patient has history of diabetes mellitus, hypertension, hyperlipidemia, humerus fracture and left arm fracture as well as history of TIA and benign prostatic hypertrophy and angina. SOCIAL HISTORY: The patient lives in [facility]. The patient said that he is and has 3 children. No other information known at this time and he denies alcohol or drug use. ALLERGIES: SULFA and DYE. MENTAL STATUS EXAMINATION: The patient appears his stated age. Overweight. Fair eye contact. Slow to respond. The patient seems goal directed, but sometimes has thought blocking and slow to respond. The patient denies any auditory or visual hallucination, but seems to be preoccupied and responding. The patient denies any intention to harm himself or others. The patient at times seems to be alert and oriented and the other times seems to be confused and with gaps of memory lapse. The patient denies any thoughts of suicide or homicide. The patient seems to be of average intelligence based on his verbal ability. ASSESSMENT: PRIMARY DIAGNOSIS: Bipolar disorder, moderate to severe, with psychotic features. MEDICAL DIAGNOSES: 1. Diabetes mellitus. 2. Hypertension. 3. Hypercholesterolemia. TREATMENT PLAN: We will monitor the patient's behavior and condition closely. The patient also will restart back on his psychotropic medications and will adjust the dose. Currently, the patient is not taking except Abilify 10 mg every day and we will increase it to 15 mg every day. Also, we will continue evaluating the patient for further recommendations. AFTER-DISCHARGE PLAN: The patient will return to [facility] with plans for outpatient treatment and followup. CRITERIA FOR DISCHARGE: Better impulse control and stabilizing psychotropic medications and outpatient treatment plans. JOB# [id number]
[2019-02-05] MEDS: INSULIN LISPRO SLIDING SCALE 100 UNITS/ML UNIT SUBQ SCH ×4 (06:39→21:37)
[2019-02-05] MEDS: Pantoprazole 40 mg/Packet PO SCH (06:39)
[2019-02-05] MEDS ORDERED: Pantoprazole 40 mg EC Tab PO SCH (07:30)
[2019-02-05] MEDS: Budesonide 0.5 Mg/2 mL Ud HHN SCH ×3 (08:04→20:14)
[2019-02-05] MEDS ORDERED: Pantoprazole 40 mg/Packet PO SCH (09:00)
[2019-02-05] MEDS: Ferrous Sulfate 325 MG TAB PO SCH (09:36)
[2019-02-05] MEDS: Rivastigmine 4.6 mg/24 hr Tdm TD SCH (09:37)
[2019-02-05] MEDS: Aspirin 81mg Chewable Tab PO SCH (09:37)
[2019-02-05] MEDS: Potassium Chloride 20 mEq ER Tab PO SCH (09:39)
--- NOTE | 2019-02-05 11:16 | Internal Medicine Prog Note ---
Internal Medicine Subjective - Subjective Service Date: 02/05/19 Patient seen and examined:: with staff Patient is:: awake, verbal, agitated Patient Complaints of:: other (Patient was admitted for agitation and for striking staff.) Per staff patient has:: no adverse event, no episodes of fall Internal Medicine Objective - Results Result Diagrams: 02/03/19 20:11 02/03/19 20:11 Recent Labs: Laboratory Last Values WBC 9.0 Th/cmm (4.8-10.8) 02/03/19 20:11 RBC 3.84 Mil/cmm (3.80-5.80) 02/03/19 20:11 Hgb 11.6 gm/dL (12-16) L 02/03/19 20:11 Hct 34.9 % (41.0-60) L 02/03/19 20:11 MCV 90.7 fl (80-99) 02/03/19 20:11 MCH 30.3 pg (27.0-31.0) 02/03/19 20:11 MCHC Differential 33.4 pg (28.0-36.0) 02/03/19 20:11 RDW 14.2 % (11.5-20.0) 02/03/19 20:11 Plt Count 152 Th/cmm (150-400) 02/03/19 20:11 MPV 9.7 fl 02/03/19 20:11 Neutrophils % 57.3 % (40.0-80.0) 02/03/19 20:11 Lymphocytes % 30.1 % (20.0-50.0) 02/03/19 20:11 Monocytes % 8.6 % (2.0-10.0) 02/03/19 20:11 Eosinophils % 3.6 % (0.0-5.0) 02/03/19 20:11 Basophils % 0.4 % (0.0-2.0) 02/03/19 20:11 Sodium 138 mEq/L (136-145) 02/03/19 20:11 Potassium 4.0 mEq/L (3.5-5.1) 02/03/19 20:11 Chloride 105 mEq/L (98-107) 02/03/19 20:11 Carbon Dioxide 25.2 mEq/L (21.0-31.0) 02/03/19 20:11 Anion Gap 11.8 (7.0-16.0) 02/03/19 20:11 BUN 34 mg/dL (7-25) H 02/03/19 20:11 Creatinine 1.1 mg/dL (0.7-1.3) 02/03/19 20:11 Est GFR ( Amer) > 60.0 ml/min (>90) 02/03/19 20:11 Est GFR (Non-Af Amer) > 60.0 ml/min 02/03/19 20:11 BUN/Creatinine Ratio 30.9 02/03/19 20:11 Glucose 132 mg/dL (70-105) H 02/03/19 20:11 POC Glucose 102 MG/DL (70 - 105) 02/04/19 06:23 Calcium 8.8 mg/dL (8.6-10.3) 02/03/19 20:11 Total Bilirubin 0.4 mg/dL (0.3-1.0) 02/03/19 20:11 AST 15 U/L (13-39) 02/03/19 20:11 ALT 17 U/L (7-52) 02/03/19 20:11 Alkaline Phosphatase 131 U/L (34-104) H 02/03/19 20:11 B-Natriuretic Peptide 210.0 pg/mL (5.0-100.0) H 02/03/19 20:11 Total Protein 6.4 gm/dL (6.0-8.3) 02/03/19 20:11 Albumin 3.5 gm/dL (4.2-5.5) L 02/03/19 20:11 Globulin 2.9 gm/dL 02/03/19 20:11 Albumin/Globulin Ratio 1.2 (1.0-1.8) 02/03/19 20:11 Triglycerides 110 mg/dL (<150) 02/03/19 20:11 Cholesterol 94 mg/dL (<200) 02/03/19 20:11 LDL Cholesterol Direct 47 mg/dL (75-193) L 02/03/19 20:11 HDL Cholesterol 28 mg/dL (23-92) 02/03/19 20:11 TSH 0.93 uIU/ml (0.34-5.60) 02/03/19 20:11 - Physical Exam Vitals and I&O: Vital Signs Temp 98.8 F 02/05/19 06:13 Pulse 99 02/05/19 09:40 Resp 18 02/05/19 08:05 BP 126/65 02/05/19 09:40 Pulse Ox 97 02/05/19 08:05 Intake & Output 02/04/19 02/05/19 02/05/19 18:59 06:59 18:59 Intake Total 240 Balance 240 Intake: Oral 240 Other: # Voids 2 # Bowel Movements 0 Active Medications: Current Medications Acetaminophen (Tylenol) 650 mg PO Q6HR PRN PRN Reason: Pain (Moderate) Stop: 04/04/19 22:01 Acetaminophen (Tylenol Extra Strength) 500 mg PO Q4HR PRN PRN Reason: Pain (Mild) Stop: 04/04/19 22:01 Albuterol/Ipratropium (Duoneb Neb) 3 ml HHN Q6HRT PRN PRN Reason: Shortness of Breath Stop: 04/04/19 22:01 Allopurinol (Zyloprim) 100 mg PO DAILY [facility] Stop: 04/05/19 08:59 Last Admin: 02/05/19 09:36 Dose: 100 mg Aripiprazole (Abilify) 15 mg PO DAILY [facility]; Protocol Stop: 04/05/19 08:59 Last Admin: 02/05/19 09:35 Dose: 15 mg Aspirin (Aspirin Chewable) 81 mg PO DAILY [facility] Stop: 04/05/19 08:59 Last Admin: 02/05/19 09:37 Dose: 81 mg Atorvastatin Calcium (Lipitor) 60 mg PO HS [facility] Stop: 04/04/19 22:59 Last Admin: 02/04/19 21:30 Dose: Not Given Budesonide (Pulmicort) 0.5 mg HHN BID [facility] Stop: 04/05/19 08:59 Last Admin: 02/05/19 08:04 Dose: 0.5 mg Buspirone HCl (Buspar) 10 mg PO BID [facility] Stop: 04/05/19 16:59 Last Admin: 02/05/19 09:39 Dose: 10 mg Citalopram Hydrobromide (Celexa) 40 mg PO DAILY [facility] Stop: 04/06/19 08:59 Last Admin: 02/05/19 09:38 Dose: 40 mg Dextrose (D50w) 50 ml IVP PRN PRN PRN Reason: Blood Glucose less than 70 Stop: 04/04/19 22:26 Dextrose (Glutose 40%) 18.75 gm PO PRN PRN PRN Reason: Blood Glucose less than 70 Stop: 04/04/19 22:26 Docusate Sodium (Colace) 100 mg PO DAILY [facility] Stop: 04/06/19 08:59 Last Admin: 02/05/19 09:35 Dose: 100 mg Ferrous Sulfate (Iron) 325 mg PO DAILY [facility] Stop: 04/05/19 08:59 Last Admin: 02/05/19 09:36 Dose: 325 mg Finasteride (Proscar) 5 mg PO DAILY [facility]; Protocol Stop: 04/05/19 08:59 Last Admin: 02/05/19 09:37 Dose: 5 mg Glucagon (Glucagen) 1 mg IM PRN PRN PRN Reason: Blood Glucose less than 70 Stop: 04/04/19 22:26 Glucagon (Glucagen) 1 mg IM PRN PRN PRN Reason: BLOOD SUGAR Stop: 04/05/19 12:38 Insulin Human Lispro (Humalog Insulin Sliding Scale) 0 units SUBQ ACHS [facility]; Protocol Stop: 04/05/19 07:29 Last Admin: 02/05/19 06:39 Dose: Not Given Isosorbide Mononitrate (Imdur) 60 mg PO DAILY [facility] Stop: 04/06/19 08:59 Last Admin: 02/05/19 09:40 Dose: 60 mg Lorazepam (Ativan) 0.5 mg PO Q4HR PRN; Protocol PRN Reason: Anxiety Stop: 03/05/19 21:42 Magnesium Oxide (Mag-Oxide) 400 mg PO BID [facility] Stop: 04/05/19 08:59 Last Admin: 02/05/19 09:37 Dose: 400 mg Metoprolol Tartrate (Lopressor) 25 mg PO BID [facility] Stop: 04/05/19 08:59 Last Admin: 02/05/19 09:39 Dose: 25 mg Nitroglycerin (Nitrostat) 0.4 mg SL Q5MIN PRN PRN Reason: Chest Pain Pantoprazole Sodium (Protonix) 40 mg PO QDAC [facility] Stop: 04/06/19 07:29 Last Admin: 02/05/19 06:39 Dose: Not Given Potassium Chloride (Klor-Con) 20 meq PO DAILY [facility] Stop: 04/05/19 08:59 Last Admin: 02/05/19 09:39 Dose: 20 meq Rivastigmine (Exelon 4.6 Mg/24 Hr Tdm) 1 patch TD DAILY [facility] Stop: 04/06/19 08:59 Last Admin: 02/05/19 09:37 Dose: 1 patch Tamsulosin HCl (Flomax) 0.8 mg PO HS [facility] Stop: 04/05/19 20:59 Last Admin: 02/04/19 21:30 Dose: Not Given Vitamin D (Vitamin D) 400 iu PO DAILY [facility] Stop: 04/05/19 08:59 Last Admin: 02/05/19 09:37 Dose: 400 iu Zolpidem Tartrate (Ambien) 5 mg PO HS PRN PRN Reason: Insomnia Stop: 04/04/19 21:42 Physical Exam: 68 y/o male patient admitted due to Agitation and striking against the nursing staff at correction. General: demented HEENT: NC/AT Neck: Supple, No JVD Lungs: CTAB Cardiovascular: RRR, Normal S1 Abdomen: soft, non-tender Extremities: clear Neurological: no change Internal Medicine Assmt/Plan - Assessment Assessment: Aggressive behavior of striking staff and episodes of hitting himself. Hypertension. Diabetes. CAD. CHF. asthma. COPD. CVA. Dementia/Confusion. Anemia. Hx of TIA. Hx of Left arm fracture. Hx of BPH. Hx of Angina. - Plan Plan: Continuation of care. Monitor Vitals and Labs. Continue present meds as directed. Monitor vitals, continue B/P meds. Accu-check daily, Continue DM meds as directed. Monitor Diet/Nutritional support. Psych management per Psych. Pain Management. Safety precaution. Supportive care. Fall precaution, frequent nursing rounds, and as needed restraints to prevent fall. Continue collaborating with consulting specialists, case management and nursing team. Will Monitor patient and continue current treatment plan as ordered. Nutritional Asmnt/Malnutr-PDOC - Dietary Evaluation Malnutrition Findings (Please click <Entered> for more info): see orders.
--- NOTE | 2019-02-05 21:25 | Progress Notes ---
DATE: 02/05/2019 SUBJECTIVE: Chart was reviewed and the patient interviewed. Also discussed the patient's condition with the staff and reviewed records and labs. The patient is still in angry mood and he is still depressed and wants to be left alone. The patient also was still uncooperative with the staff and refusing vital signs and refusing to get his blood sugar checked and also refusing medications. The patient also is still easily irritable and still needs close observation and close monitoring. Otherwise, the patient is easier to redirect at times. ASSESSMENT: The patient is still psychotic and in angry mood. TREATMENT PLAN: Continue to monitor his behavior and his condition. Also, continue adjusting psychotropic medications and work on behavioral modification and also on his compliance with taking his medications. JOB# [id number]
[2019-02-05] MEDS: Atorvastatin Calcium 10 MG TAB PO SCH (21:36)
[2019-02-06 06:08] LABS: A1C 6.6 % (4.8-5.6)
[2019-02-06] MEDS: Pantoprazole 40 mg/Packet PO SCH (06:46)
[2019-02-06] MEDS: INSULIN LISPRO SLIDING SCALE 100 UNITS/ML UNIT SUBQ SCH ×4 (06:47→21:40)
[2019-02-06] MEDS: Potassium Chloride 20 mEq ER Tab PO SCH (08:44)
[2019-02-06] MEDS: Ferrous Sulfate 325 MG TAB PO SCH (08:46)
[2019-02-06] MEDS: Aspirin 81mg Chewable Tab PO SCH (08:47)
[2019-02-06] MEDS: Rivastigmine 4.6 mg/24 hr Tdm TD SCH (08:51)
[2019-02-06] MEDS: Budesonide 0.5 Mg/2 mL Ud HHN SCH ×2 (09:44→18:57)
[2019-02-06] MEDS: Atorvastatin Calcium 10 MG TAB PO SCH (21:36)
--- NOTE | 2019-02-06 23:57 | Progress Notes ---
DATE: 02/06/2019 SUBJECTIVE: Chart was reviewed and the patient interviewed. Also discussed the patient's condition with the staff and reviewed records and labs. The patient is more cooperative. He is less irritable and less agitated. The patient also is interacting slightly more. He denies any intention to harm himself or others, but he is still in angry and irritable mood at times. ASSESSMENT: The patient still needs close monitoring. TREATMENT PLAN: Continue to monitor behavior and condition closely. Also, continue adjusting psychotropic medications and work on behavior modifications. JOB# [id number]
[2019-02-07] MEDS: INSULIN LISPRO SLIDING SCALE 100 UNITS/ML UNIT SUBQ SCH ×4 (07:03→20:23)
[2019-02-07] MEDS: Budesonide 0.5 Mg/2 mL Ud HHN SCH ×2 (07:30→18:35)
[2019-02-07] MEDS: Pantoprazole 40 mg/Packet PO SCH (09:07)
[2019-02-07] MEDS: Rivastigmine 4.6 mg/24 hr Tdm TD SCH (09:08)
[2019-02-07] MEDS: Ferrous Sulfate 325 MG TAB PO SCH (09:09)
[2019-02-07] MEDS: Aspirin 81mg Chewable Tab PO SCH (09:09)
[2019-02-07] MEDS: Potassium Chloride 20 mEq ER Tab PO SCH (09:10)
--- NOTE | 2019-02-07 10:04 | Internal Medicine Prog Note ---
Internal Medicine Subjective - Subjective Patient seen and examined:: with staff Patient is:: awake, verbal, agitated Patient Complaints of:: other (Patient was admitted for agitation and for striking staff.) Per staff patient has:: no adverse event, no episodes of fall Internal Medicine Objective - Results Result Diagrams: 02/03/19 20:11 02/03/19 20:11 Recent Labs: Laboratory Last Values WBC 9.0 Th/cmm (4.8-10.8) 02/03/19 20:11 RBC 3.84 Mil/cmm (3.80-5.80) 02/03/19 20:11 Hgb 11.6 gm/dL (12-16) L 02/03/19 20:11 Hct 34.9 % (41.0-60) L 02/03/19 20:11 MCV 90.7 fl (80-99) 02/03/19 20:11 MCH 30.3 pg (27.0-31.0) 02/03/19 20:11 MCHC Differential 33.4 pg (28.0-36.0) 02/03/19 20:11 RDW 14.2 % (11.5-20.0) 02/03/19 20:11 Plt Count 152 Th/cmm (150-400) 02/03/19 20:11 MPV 9.7 fl 02/03/19 20:11 Neutrophils % 57.3 % (40.0-80.0) 02/03/19 20:11 Lymphocytes % 30.1 % (20.0-50.0) 02/03/19 20:11 Monocytes % 8.6 % (2.0-10.0) 02/03/19 20:11 Eosinophils % 3.6 % (0.0-5.0) 02/03/19 20:11 Basophils % 0.4 % (0.0-2.0) 02/03/19 20:11 Sodium 138 mEq/L (136-145) 02/03/19 20:11 Potassium 4.0 mEq/L (3.5-5.1) 02/03/19 20:11 Chloride 105 mEq/L (98-107) 02/03/19 20:11 Carbon Dioxide 25.2 mEq/L (21.0-31.0) 02/03/19 20:11 Anion Gap 11.8 (7.0-16.0) 02/03/19 20:11 BUN 34 mg/dL (7-25) H 02/03/19 20:11 Creatinine 1.1 mg/dL (0.7-1.3) 02/03/19 20:11 Est GFR ( Amer) > 60.0 ml/min (>90) 02/03/19 20:11 Est GFR (Non-Af Amer) > 60.0 ml/min 02/03/19 20:11 BUN/Creatinine Ratio 30.9 02/03/19 20:11 Glucose 132 mg/dL (70-105) H 02/03/19 20:11 POC Glucose 81 MG/DL (70 - 105) 02/07/19 06:50 Calcium 8.8 mg/dL (8.6-10.3) 02/03/19 20:11 Total Bilirubin 0.4 mg/dL (0.3-1.0) 02/03/19 20:11 AST 15 U/L (13-39) 02/03/19 20:11 ALT 17 U/L (7-52) 02/03/19 20:11 Alkaline Phosphatase 131 U/L (34-104) H 02/03/19 20:11 B-Natriuretic Peptide 210.0 pg/mL (5.0-100.0) H 02/03/19 20:11 Total Protein 6.4 gm/dL (6.0-8.3) 02/03/19 20:11 Albumin 3.5 gm/dL (4.2-5.5) L 02/03/19 20:11 Globulin 2.9 gm/dL 02/03/19 20:11 Albumin/Globulin Ratio 1.2 (1.0-1.8) 02/03/19 20:11 Triglycerides 110 mg/dL (<150) 02/03/19 20:11 Cholesterol 94 mg/dL (<200) 02/03/19 20:11 LDL Cholesterol Direct 47 mg/dL (75-193) L 02/03/19 20:11 HDL Cholesterol 28 mg/dL (23-92) 02/03/19 20:11 TSH 0.93 uIU/ml (0.34-5.60) 02/03/19 20:11 - Physical Exam Vitals and I&O: Vital Signs Temp 97 F 02/07/19 06:16 Pulse 100 02/07/19 09:10 Resp 18 02/07/19 07:36 BP 104/65 02/07/19 09:10 Pulse Ox 97 02/07/19 07:36 Intake & Output 02/06/19 02/07/19 02/07/19 18:59 06:59 18:59 Intake Total 1200 120 Balance 1200 120 Intake: Oral 1200 120 Other: # Voids 3 # Bowel Movements 1 Stool Characteristics Soft Active Medications: Current Medications Acetaminophen (Tylenol) 650 mg PO Q6HR PRN PRN Reason: Pain (Moderate) Stop: 04/04/19 22:01 Acetaminophen (Tylenol Extra Strength) 500 mg PO Q4HR PRN PRN Reason: Pain (Mild) Stop: 04/04/19 22:01 Albuterol/Ipratropium (Duoneb Neb) 3 ml HHN Q6HRT PRN PRN Reason: Shortness of Breath Stop: 04/04/19 22:01 Allopurinol (Zyloprim) 100 mg PO DAILY [facility] Stop: 04/05/19 08:59 Last Admin: 02/07/19 09:10 Dose: 100 mg Aripiprazole (Abilify) 15 mg PO DAILY [facility]; Protocol Stop: 04/05/19 08:59 Last Admin: 02/07/19 09:09 Dose: 15 mg Aspirin (Aspirin Chewable) 81 mg PO DAILY [facility] Stop: 04/05/19 08:59 Last Admin: 02/07/19 09:09 Dose: 81 mg Atorvastatin Calcium (Lipitor) 60 mg PO HS [facility] Stop: 04/04/19 22:59 Last Admin: 02/06/19 21:36 Dose: Not Given Budesonide (Pulmicort) 0.5 mg HHN BID [facility] Stop: 04/05/19 08:59 Last Admin: 02/07/19 07:30 Dose: 0.5 mg Buspirone HCl (Buspar) 10 mg PO BID [facility] Stop: 04/05/19 16:59 Last Admin: 02/07/19 09:09 Dose: 10 mg Citalopram Hydrobromide (Celexa) 40 mg PO DAILY [facility] Stop: 04/06/19 08:59 Last Admin: 02/07/19 09:09 Dose: 40 mg Dextrose (D50w) 50 ml IVP PRN PRN PRN Reason: Blood Glucose less than 70 Stop: 04/04/19 22:26 Dextrose (Glutose 40%) 18.75 gm PO PRN PRN PRN Reason: Blood Glucose less than 70 Stop: 04/04/19 22:26 Docusate Sodium (Colace) 100 mg PO DAILY [facility] Stop: 04/06/19 08:59 Last Admin: 02/07/19 09:10 Dose: 100 mg Ferrous Sulfate (Iron) 325 mg PO DAILY [facility] Stop: 04/05/19 08:59 Last Admin: 02/07/19 09:09 Dose: 325 mg Finasteride (Proscar) 5 mg PO DAILY [facility]; Protocol Stop: 04/05/19 08:59 Last Admin: 02/07/19 09:10 Dose: 5 mg Glucagon (Glucagen) 1 mg IM PRN PRN PRN Reason: Blood Glucose less than 70 Stop: 04/04/19 22:26 Glucagon (Glucagen) 1 mg IM PRN PRN PRN Reason: BLOOD SUGAR Stop: 04/05/19 12:38 Insulin Human Lispro (Humalog Insulin Sliding Scale) 0 units SUBQ ACHS [facility]; Protocol Stop: 04/05/19 07:29 Last Admin: 02/07/19 07:03 Dose: Not Given Isosorbide Mononitrate (Imdur) 60 mg PO DAILY [facility] Stop: 04/06/19 08:59 Last Admin: 02/07/19 09:09 Dose: 60 mg Lorazepam (Ativan) 0.5 mg PO Q4HR PRN; Protocol PRN Reason: Anxiety Stop: 03/05/19 21:42 Last Admin: 02/07/19 09:09 Dose: 0.5 mg Magnesium Oxide (Mag-Oxide) 400 mg PO BID [facility] Stop: 04/05/19 08:59 Last Admin: 02/07/19 09:09 Dose: 400 mg Metoprolol Tartrate (Lopressor) 25 mg PO BID [facility] Stop: 04/05/19 08:59 Last Admin: 02/07/19 09:10 Dose: 25 mg Nitroglycerin (Nitrostat) 0.4 mg SL Q5MIN PRN PRN Reason: Chest Pain Pantoprazole Sodium (Protonix) 40 mg PO QDAC [facility] Stop: 04/06/19 07:29 Last Admin: 02/07/19 09:07 Dose: Not Given Potassium Chloride (Klor-Con) 20 meq PO DAILY [facility] Stop: 04/05/19 08:59 Last Admin: 02/07/19 09:10 Dose: 20 meq Rivastigmine (Exelon 4.6 Mg/24 Hr Tdm) 1 patch TD DAILY [facility] Stop: 04/06/19 08:59 Last Admin: 02/07/19 09:08 Dose: 1 patch Tamsulosin HCl (Flomax) 0.8 mg PO HS [facility] Stop: 04/05/19 20:59 Last Admin: 02/06/19 21:36 Dose: Not Given Vitamin D (Vitamin D) 400 iu PO DAILY [facility] Stop: 04/05/19 08:59 Last Admin: 02/07/19 09:10 Dose: 400 iu Zolpidem Tartrate (Ambien) 5 mg PO HS PRN PRN Reason: Insomnia Stop: 04/04/19 21:42 General: demented, obese, NAD HEENT: NC/AT Neck: Supple, No JVD Lungs: CTAB Cardiovascular: other (irregular - hx afib) Abdomen: soft, non-tender Extremities: clear Neurological: no change, alert Internal Medicine Assmt/Plan - Assessment Assessment: Aggressive behavior of striking staff and episodes of hitting himself. Hypertension. Diabetes. CAD. CHF. asthma. COPD. CVA. Dementia/Confusion. Anemia. Hx of TIA. Hx of Left arm fracture. Hx of BPH. Hx of Angina. - Plan Plan: Continue plan of care. Monitor Vitals and behavior. Continue inpatient psychi. Safety precaution. Supportive care. Fall precaution, frequent nursing rounds, and as needed restraints to prevent fall. Continue collaborating with consulting specialists, case management and nursing team. Will Monitor patient and continue current treatment plan as ordered.
--- NOTE | 2019-02-07 16:21 | Progress Notes ---
DATE: 02/06/2019 SUBJECTIVE: The patient was seen in his room. The patient is asleep, but easily arousable. The patient appears to be guarded, easily gets frustrated, has behavioral outburst. Otherwise, the patient appears to be comfortable, in no acute distress. OBJECTIVE: VITAL SIGNS: Temperature 97.4, heart rate 90, blood pressure 132/86, respirations of 18, 97% on room air. HEENT: Head is atraumatic and normocephalic. Eyes: Bilateral conjunctivae are clear. Bilateral pupils are equally round and reactive. NECK: Supple. No JVD. CARDIOVASCULAR: S1 and S2, without murmur. PULMONARY: Clear to auscultation. GASTROINTESTINAL: Soft and nontender without guarding. Positive bowel sounds. MUSCULOSKELETAL: No clubbing. No cyanosis noted. ASSESSMENT: 1. Bipolar disorder. 2. Hypertension. 3. Hyperlipidemia. 4. Diabetes. 5. Osteoarthritis. PLAN: We will keep the patient inpatient to Psychiatric Unit. We will follow up with a psychiatrist to monitor the patient's condition and behavior. Treatment plans were discussed with the patient's nurse. Treatment plans were discussed with Dr. Duggan. JOB# [id number]
[2019-02-07] MEDS: Albuterol/Ipratropium Neb 3 ML AERS HHN PRN (18:35)
[2019-02-07] MEDS: Atorvastatin Calcium 10 MG TAB PO SCH (20:13)
--- NOTE | 2019-02-07 23:52 | Progress Notes ---
DATE: 02/07/2019 PSYCHIATRIC PROGRESS NOTE SUBJECTIVE: Chart reviewed and the patient interviewed. Also discussed the patient's condition with the staff and reviewed records and labs. The patient is still in angry mood and is easily agitated. The patient also is selectively mute. The patient is pacing up and down the unit and he has difficulty making his needs known or met. He also is still rambling and is actively hallucinating and talking to himself. The patient also is refusing to take his medications in spite of explaining the importance of taking medications. ASSESSMENT: The patient is still agitated and can be dangerous to others and is also refusing medications. TREATMENT PLAN: Continue to work on his irritability and agitation. Also, continued to express the importance of taking the medicine. Also, continue to work on his anger and his poor impulse control. JOB# [id number]
[2019-02-08] MEDS: Pantoprazole 40 mg/Packet PO SCH (06:30)
[2019-02-08] MEDS: INSULIN LISPRO SLIDING SCALE 100 UNITS/ML UNIT SUBQ SCH ×4 (06:31→20:42)
[2019-02-08] MEDS: Budesonide 0.5 Mg/2 mL Ud HHN SCH ×2 (07:06→18:51)
[2019-02-08] MEDS: Albuterol/Ipratropium Neb 3 ML AERS HHN PRN (07:06)
[2019-02-08] MEDS: Rivastigmine 4.6 mg/24 hr Tdm TD SCH (08:21)
[2019-02-08] MEDS: Aspirin 81mg Chewable Tab PO SCH (08:23)
[2019-02-08] MEDS: Ferrous Sulfate 325 MG TAB PO SCH (08:23)
[2019-02-08] MEDS: Potassium Chloride 20 mEq ER Tab PO SCH (08:24)
--- NOTE | 2019-02-08 10:28 | Internal Medicine Prog Note ---
Internal Medicine Subjective - Subjective Service Date: 02/08/19 Patient seen and examined:: with staff Patient is:: awake, verbal, agitated Patient Complaints of:: other (Patient was admitted for agitation and for striking staff.) Per staff patient has:: no adverse event, no episodes of fall Internal Medicine Objective - Results Result Diagrams: 02/03/19 20:11 02/03/19 20:11 Recent Labs: Laboratory Last Values WBC 9.0 Th/cmm (4.8-10.8) 02/03/19 20:11 RBC 3.84 Mil/cmm (3.80-5.80) 02/03/19 20:11 Hgb 11.6 gm/dL (12-16) L 02/03/19 20:11 Hct 34.9 % (41.0-60) L 02/03/19 20:11 MCV 90.7 fl (80-99) 02/03/19 20:11 MCH 30.3 pg (27.0-31.0) 02/03/19 20:11 MCHC Differential 33.4 pg (28.0-36.0) 02/03/19 20:11 RDW 14.2 % (11.5-20.0) 02/03/19 20:11 Plt Count 152 Th/cmm (150-400) 02/03/19 20:11 MPV 9.7 fl 02/03/19 20:11 Neutrophils % 57.3 % (40.0-80.0) 02/03/19 20:11 Lymphocytes % 30.1 % (20.0-50.0) 02/03/19 20:11 Monocytes % 8.6 % (2.0-10.0) 02/03/19 20:11 Eosinophils % 3.6 % (0.0-5.0) 02/03/19 20:11 Basophils % 0.4 % (0.0-2.0) 02/03/19 20:11 Sodium 138 mEq/L (136-145) 02/03/19 20:11 Potassium 4.0 mEq/L (3.5-5.1) 02/03/19 20:11 Chloride 105 mEq/L (98-107) 02/03/19 20:11 Carbon Dioxide 25.2 mEq/L (21.0-31.0) 02/03/19 20:11 Anion Gap 11.8 (7.0-16.0) 02/03/19 20:11 BUN 34 mg/dL (7-25) H 02/03/19 20:11 Creatinine 1.1 mg/dL (0.7-1.3) 02/03/19 20:11 Est GFR ( Amer) > 60.0 ml/min (>90) 02/03/19 20:11 Est GFR (Non-Af Amer) > 60.0 ml/min 02/03/19 20:11 BUN/Creatinine Ratio 30.9 02/03/19 20:11 Glucose 132 mg/dL (70-105) H 02/03/19 20:11 POC Glucose 107 MG/DL (70 - 105) H 02/08/19 05:44 Calcium 8.8 mg/dL (8.6-10.3) 02/03/19 20:11 Total Bilirubin 0.4 mg/dL (0.3-1.0) 02/03/19 20:11 AST 15 U/L (13-39) 02/03/19 20:11 ALT 17 U/L (7-52) 02/03/19 20:11 Alkaline Phosphatase 131 U/L (34-104) H 02/03/19 20:11 B-Natriuretic Peptide 210.0 pg/mL (5.0-100.0) H 02/03/19 20:11 Total Protein 6.4 gm/dL (6.0-8.3) 02/03/19 20:11 Albumin 3.5 gm/dL (4.2-5.5) L 02/03/19 20:11 Globulin 2.9 gm/dL 02/03/19 20:11 Albumin/Globulin Ratio 1.2 (1.0-1.8) 02/03/19 20:11 Triglycerides 110 mg/dL (<150) 02/03/19 20:11 Cholesterol 94 mg/dL (<200) 02/03/19 20:11 LDL Cholesterol Direct 47 mg/dL (75-193) L 02/03/19 20:11 HDL Cholesterol 28 mg/dL (23-92) 02/03/19 20:11 TSH 0.93 uIU/ml (0.34-5.60) 02/03/19 20:11 - Physical Exam Vitals and I&O: Vital Signs Temp 97.8 F 02/08/19 06:16 Pulse 100 02/08/19 08:29 Resp 20 02/08/19 07:09 BP 113/66 02/08/19 08:29 Pulse Ox 99 02/08/19 07:09 Intake & Output 02/07/19 02/08/19 02/08/19 18:59 06:59 18:59 Intake Total 120 Balance 120 Intake: Oral 120 Other: # Voids 1 # Bowel Movements 0 Stool Characteristics Soft Brown Active Medications: Current Medications Acetaminophen (Tylenol) 650 mg PO Q6HR PRN PRN Reason: Pain (Moderate) Stop: 04/04/19 22:01 Acetaminophen (Tylenol Extra Strength) 500 mg PO Q4HR PRN PRN Reason: Pain (Mild) Stop: 04/04/19 22:01 Albuterol/Ipratropium (Duoneb Neb) 3 ml HHN Q6HRT PRN PRN Reason: Shortness of Breath Stop: 04/04/19 22:01 Last Admin: 02/08/19 07:06 Dose: 3 ml Allopurinol (Zyloprim) 100 mg PO DAILY [facility] Stop: 04/05/19 08:59 Last Admin: 02/08/19 08:23 Dose: 100 mg Aripiprazole (Abilify) 15 mg PO DAILY [facility]; Protocol Stop: 04/05/19 08:59 Last Admin: 02/08/19 08:32 Dose: 15 mg Aspirin (Aspirin Chewable) 81 mg PO DAILY [facility] Stop: 04/05/19 08:59 Last Admin: 02/08/19 08:23 Dose: 81 mg Atorvastatin Calcium (Lipitor) 60 mg PO HS [facility] Stop: 04/04/19 22:59 Last Admin: 02/07/19 20:13 Dose: 60 mg Budesonide (Pulmicort) 0.5 mg HHN BID [facility] Stop: 04/05/19 08:59 Last Admin: 02/08/19 07:06 Dose: 0.5 mg Buspirone HCl (Buspar) 10 mg PO BID [facility] Stop: 04/05/19 16:59 Last Admin: 02/08/19 08:21 Dose: 10 mg Citalopram Hydrobromide (Celexa) 40 mg PO DAILY [facility] Stop: 04/06/19 08:59 Last Admin: 02/08/19 08:22 Dose: 40 mg Dextrose (D50w) 50 ml IVP PRN PRN PRN Reason: Blood Glucose less than 70 Stop: 04/04/19 22:26 Dextrose (Glutose 40%) 18.75 gm PO PRN PRN PRN Reason: Blood Glucose less than 70 Stop: 04/04/19 22:26 Docusate Sodium (Colace) 100 mg PO DAILY [facility] Stop: 04/06/19 08:59 Last Admin: 02/08/19 08:23 Dose: 100 mg Ferrous Sulfate (Iron) 325 mg PO DAILY [facility] Stop: 04/05/19 08:59 Last Admin: 02/08/19 08:23 Dose: 325 mg Finasteride (Proscar) 5 mg PO DAILY [facility]; Protocol Stop: 04/05/19 08:59 Last Admin: 02/08/19 08:23 Dose: 5 mg Glucagon (Glucagen) 1 mg IM PRN PRN PRN Reason: Blood Glucose less than 70 Stop: 04/04/19 22:26 Glucagon (Glucagen) 1 mg IM PRN PRN PRN Reason: BLOOD SUGAR Stop: 04/05/19 12:38 Insulin Human Lispro (Humalog Insulin Sliding Scale) 0 units SUBQ ACHS [facility]; Protocol Stop: 04/05/19 07:29 Last Admin: 02/08/19 06:31 Dose: Not Given Isosorbide Mononitrate (Imdur) 60 mg PO DAILY [facility] Stop: 04/06/19 08:59 Last Admin: 02/08/19 08:29 Dose: 60 mg Lorazepam (Ativan) 0.5 mg PO Q4HR PRN; Protocol PRN Reason: Anxiety Stop: 03/05/19 21:42 Last Admin: 02/07/19 09:09 Dose: 0.5 mg Magnesium Oxide (Mag-Oxide) 400 mg PO BID [facility] Stop: 04/05/19 08:59 Last Admin: 02/08/19 08:24 Dose: 400 mg Metoprolol Tartrate (Lopressor) 25 mg PO BID [facility] Stop: 04/05/19 08:59 Last Admin: 02/08/19 08:29 Dose: 25 mg Nitroglycerin (Nitrostat) 0.4 mg SL Q5MIN PRN PRN Reason: Chest Pain Pantoprazole Sodium (Protonix) 40 mg PO QDAC [facility] Stop: 04/06/19 07:29 Last Admin: 02/08/19 06:30 Dose: 40 mg Potassium Chloride (Klor-Con) 20 meq PO DAILY [facility] Stop: 04/05/19 08:59 Last Admin: 02/08/19 08:24 Dose: 20 meq Rivastigmine (Exelon 4.6 Mg/24 Hr Tdm) 1 patch TD DAILY [facility] Stop: 04/06/19 08:59 Last Admin: 02/08/19 08:21 Dose: 1 patch Tamsulosin HCl (Flomax) 0.8 mg PO HS [facility] Stop: 04/05/19 20:59 Last Admin: 02/07/19 20:14 Dose: 0.8 mg Vitamin D (Vitamin D) 400 iu PO DAILY [facility] Stop: 04/05/19 08:59 Last Admin: 02/08/19 08:23 Dose: 400 iu Zolpidem Tartrate (Ambien) 5 mg PO HS PRN PRN Reason: Insomnia Stop: 04/04/19 21:42 Physical Exam: 68 y/o male patient is less agitated and is still not sleeping well. General: demented, obese, NAD HEENT: NC/AT Neck: Supple, No JVD Lungs: CTAB Cardiovascular: other (irregular - hx afib) Abdomen: soft, non-tender Extremities: clear Neurological: no change, alert Internal Medicine Assmt/Plan - Assessment Assessment: Aggressive behavior of striking staff and episodes of hitting himself. Hypertension. Diabetes. CAD. CHF. asthma. COPD. CVA. Dementia/Confusion. Anemia. Hx of TIA. Hx of Left arm fracture. Hx of BPH. Hx of Angina. - Plan Plan: Continuation of care. Monitor Vitals and Labs. Continue present meds as directed. Monitor vitals, continue B/P meds. Accu-check daily, Continue DM meds as directed. Monitor Diet/Nutritional support. Psych management per Psych. Pain Management. Safety precaution. Supportive care. Fall precaution, frequent nursing rounds, and as needed restraints to prevent fall. Continue collaborating with consulting specialists, case management and nursing team. Will Monitor patient and continue present care management. Nutritional Asmnt/Malnutr-PDOC - Dietary Evaluation Malnutrition Findings (Please click <Entered> for more info): see orders.
--- NOTE | 2019-02-08 18:55 | Internal Medicine Prog Note ---
Internal Medicine Subjective - Subjective Service Date: 02/08/19 Patient is:: awake, verbal, agitated Patient Complaints of:: other (Patient was admitted for agitation and for striking staff.) Per staff patient has:: no adverse event, no episodes of fall Internal Medicine Objective - Results Result Diagrams: 02/03/19 20:11 02/03/19 20:11 Recent Labs: Laboratory Last Values WBC 9.0 Th/cmm (4.8-10.8) 02/03/19 20:11 RBC 3.84 Mil/cmm (3.80-5.80) 02/03/19 20:11 Hgb 11.6 gm/dL (12-16) L 02/03/19 20:11 Hct 34.9 % (41.0-60) L 02/03/19 20:11 MCV 90.7 fl (80-99) 02/03/19 20:11 MCH 30.3 pg (27.0-31.0) 02/03/19 20:11 MCHC Differential 33.4 pg (28.0-36.0) 02/03/19 20:11 RDW 14.2 % (11.5-20.0) 02/03/19 20:11 Plt Count 152 Th/cmm (150-400) 02/03/19 20:11 MPV 9.7 fl 02/03/19 20:11 Neutrophils % 57.3 % (40.0-80.0) 02/03/19 20:11 Lymphocytes % 30.1 % (20.0-50.0) 02/03/19 20:11 Monocytes % 8.6 % (2.0-10.0) 02/03/19 20:11 Eosinophils % 3.6 % (0.0-5.0) 02/03/19 20:11 Basophils % 0.4 % (0.0-2.0) 02/03/19 20:11 Sodium 138 mEq/L (136-145) 02/03/19 20:11 Potassium 4.0 mEq/L (3.5-5.1) 02/03/19 20:11 Chloride 105 mEq/L (98-107) 02/03/19 20:11 Carbon Dioxide 25.2 mEq/L (21.0-31.0) 02/03/19 20:11 Anion Gap 11.8 (7.0-16.0) 02/03/19 20:11 BUN 34 mg/dL (7-25) H 02/03/19 20:11 Creatinine 1.1 mg/dL (0.7-1.3) 02/03/19 20:11 Est GFR ( Amer) > 60.0 ml/min (>90) 02/03/19 20:11 Est GFR (Non-Af Amer) > 60.0 ml/min 02/03/19 20:11 BUN/Creatinine Ratio 30.9 02/03/19 20:11 Glucose 132 mg/dL (70-105) H 02/03/19 20:11 POC Glucose 185 MG/DL (70 - 105) H 02/08/19 17:00 Calcium 8.8 mg/dL (8.6-10.3) 02/03/19 20:11 Total Bilirubin 0.4 mg/dL (0.3-1.0) 02/03/19 20:11 AST 15 U/L (13-39) 02/03/19 20:11 ALT 17 U/L (7-52) 02/03/19 20:11 Alkaline Phosphatase 131 U/L (34-104) H 02/03/19 20:11 B-Natriuretic Peptide 210.0 pg/mL (5.0-100.0) H 02/03/19 20:11 Total Protein 6.4 gm/dL (6.0-8.3) 02/03/19 20:11 Albumin 3.5 gm/dL (4.2-5.5) L 02/03/19 20:11 Globulin 2.9 gm/dL 02/03/19 20:11 Albumin/Globulin Ratio 1.2 (1.0-1.8) 02/03/19 20:11 Triglycerides 110 mg/dL (<150) 02/03/19 20:11 Cholesterol 94 mg/dL (<200) 02/03/19 20:11 LDL Cholesterol Direct 47 mg/dL (75-193) L 02/03/19 20:11 HDL Cholesterol 28 mg/dL (23-92) 02/03/19 20:11 TSH 0.93 uIU/ml (0.34-5.60) 02/03/19 20:11 - Physical Exam Vitals and I&O: Vital Signs Temp 98.1 F 02/08/19 14:17 Pulse 94 02/08/19 17:05 Resp 18 02/08/19 14:17 BP 126/91 02/08/19 17:05 Pulse Ox 95 02/08/19 14:17 Intake & Output 02/07/19 02/08/19 02/08/19 18:59 06:59 18:59 Intake Total 120 Balance 120 Intake: Oral 120 Other: # Voids 1 # Bowel Movements 0 Stool Characteristics Soft Brown Active Medications: Current Medications Acetaminophen (Tylenol) 650 mg PO Q6HR PRN PRN Reason: Pain (Moderate) Stop: 04/04/19 22:01 Acetaminophen (Tylenol Extra Strength) 500 mg PO Q4HR PRN PRN Reason: Pain (Mild) Stop: 04/04/19 22:01 Albuterol/Ipratropium (Duoneb Neb) 3 ml HHN Q6HRT PRN PRN Reason: Shortness of Breath Stop: 04/04/19 22:01 Last Admin: 02/08/19 07:06 Dose: 3 ml Allopurinol (Zyloprim) 100 mg PO DAILY [facility] Stop: 04/05/19 08:59 Last Admin: 02/08/19 08:23 Dose: 100 mg Aripiprazole (Abilify) 15 mg PO DAILY [facility]; Protocol Stop: 04/05/19 08:59 Last Admin: 02/08/19 08:32 Dose: 15 mg Aspirin (Aspirin Chewable) 81 mg PO DAILY [facility] Stop: 04/05/19 08:59 Last Admin: 02/08/19 08:23 Dose: 81 mg Atorvastatin Calcium (Lipitor) 60 mg PO HS [facility] Stop: 04/04/19 22:59 Last Admin: 02/07/19 20:13 Dose: 60 mg Budesonide (Pulmicort) 0.5 mg HHN BID [facility] Stop: 04/05/19 08:59 Last Admin: 02/08/19 07:06 Dose: 0.5 mg Buspirone HCl (Buspar) 10 mg PO BID [facility] Stop: 04/05/19 16:59 Last Admin: 02/08/19 17:04 Dose: 10 mg Citalopram Hydrobromide (Celexa) 40 mg PO DAILY [facility] Stop: 04/06/19 08:59 Last Admin: 02/08/19 08:22 Dose: 40 mg Dextrose (D50w) 50 ml IVP PRN PRN PRN Reason: Blood Glucose less than 70 Stop: 04/04/19 22:26 Dextrose (Glutose 40%) 18.75 gm PO PRN PRN PRN Reason: Blood Glucose less than 70 Stop: 04/04/19 22:26 Docusate Sodium (Colace) 100 mg PO DAILY [facility] Stop: 04/06/19 08:59 Last Admin: 02/08/19 08:23 Dose: 100 mg Ferrous Sulfate (Iron) 325 mg PO DAILY [facility] Stop: 04/05/19 08:59 Last Admin: 02/08/19 08:23 Dose: 325 mg Finasteride (Proscar) 5 mg PO DAILY [facility]; Protocol Stop: 04/05/19 08:59 Last Admin: 02/08/19 08:23 Dose: 5 mg Glucagon (Glucagen) 1 mg IM PRN PRN PRN Reason: Blood Glucose less than 70 Stop: 04/04/19 22:26 Glucagon (Glucagen) 1 mg IM PRN PRN PRN Reason: BLOOD SUGAR Stop: 04/05/19 12:38 Insulin Human Lispro (Humalog Insulin Sliding Scale) 0 units SUBQ ACHS [facility]; Protocol Stop: 04/05/19 07:29 Last Admin: 02/08/19 17:05 Dose: 3 units Isosorbide Mononitrate (Imdur) 60 mg PO DAILY [facility] Stop: 04/06/19 08:59 Last Admin: 02/08/19 08:29 Dose: 60 mg Lorazepam (Ativan) 0.5 mg PO Q4HR PRN; Protocol PRN Reason: Anxiety Stop: 03/05/19 21:42 Last Admin: 02/07/19 09:09 Dose: 0.5 mg Magnesium Oxide (Mag-Oxide) 400 mg PO BID [facility] Stop: 04/05/19 08:59 Last Admin: 02/08/19 17:04 Dose: 400 mg Metoprolol Tartrate (Lopressor) 25 mg PO BID [facility] Stop: 04/05/19 08:59 Last Admin: 02/08/19 17:05 Dose: 25 mg Nitroglycerin (Nitrostat) 0.4 mg SL Q5MIN PRN PRN Reason: Chest Pain Pantoprazole Sodium (Protonix) 40 mg PO QDAC [facility] Stop: 04/06/19 07:29 Last Admin: 02/08/19 06:30 Dose: 40 mg Potassium Chloride (Klor-Con) 20 meq PO DAILY [facility] Stop: 04/05/19 08:59 Last Admin: 02/08/19 08:24 Dose: 20 meq Rivastigmine (Exelon 4.6 Mg/24 Hr Tdm) 1 patch TD DAILY [facility] Stop: 04/06/19 08:59 Last Admin: 02/08/19 08:21 Dose: 1 patch Tamsulosin HCl (Flomax) 0.8 mg PO HS [facility] Stop: 04/05/19 20:59 Last Admin: 02/07/19 20:14 Dose: 0.8 mg Vitamin D (Vitamin D) 400 iu PO DAILY [facility] Stop: 04/05/19 08:59 Last Admin: 02/08/19 08:23 Dose: 400 iu Zolpidem Tartrate (Ambien) 5 mg PO HS PRN PRN Reason: Insomnia Stop: 04/04/19 21:42 General: demented, obese, NAD HEENT: NC/AT Neck: Supple, No JVD Lungs: CTAB Cardiovascular: other (irregular - hx afib) Abdomen: soft, non-tender Extremities: clear Neurological: no change, alert Internal Medicine Assmt/Plan - Assessment Assessment: Aggressive behavior of striking staff and episodes of hitting himself. Hypertension. Diabetes. CAD. CHF. asthma. COPD. CVA. Dementia/Confusion. Anemia. Hx of TIA. Hx of Left arm fracture. Hx of BPH. Hx of Angina. - Plan Plan: Continue plan of care. Monitor Vitals and behavior. Continue inpatient psychi. Safety precaution. Supportive care. Fall precaution, frequent nursing rounds, and as needed restraints to prevent fall. Continue collaborating with consulting specialists, case management and nursing team. Will Monitor patient and continue current treatment plan as ordered. Nutritional Asmnt/Malnutr-PDOC - Dietary Evaluation Malnutrition Findings (Please click <Entered> for more info): Nutritional Asmnt/Malnutrition Start: 02/08/19 18: 36 Text: Status: Active Freq: Protocol: Document 02/08/19 18:37 [email or web address] (Rec: 02/08/19 18:45 [email or web address]) Nutritional Asmnt/Malnutrition Patient General Information Nutritional Screening Moderate Risk Diagnosis Psychosis & Bipolar Disorder Pertinent Medical Hx/Surgical Hx HTN, DM, CAD, Asthma/COPD, CVA /TIA, Dementia, Anemia bph afib Subjective Information Pt seen in dining room at time of visit. Pt is confused and is unable to answer any questions. Per [employer] (Job), PO intake 100% for lunch today . Reports tolerating diet, no chew/swallow difficulty. Per chart, PO intake 100-100- 100% for 3 meals on 02/07. Current Diet Order/ Nutrition Support [facility] Pertinent Medications Lipitor, D50W, Glutose 40%, Colace, Iron, Glucagen, INS-SS , Mag-oxide, Lopressor Pertinent Labs 02/07 POC Glu 132, 151 02/08 POC Glu 107, 187 Nutritional Hx/Data Height 5 ft 6 in Height (Calculated Centimeters) 167.6 Current Weight (lbs) 210 lb Weight (Calculated Kilograms) 95.3 Weight (Calculated Grams) 30707.4 [place] Body Weight 63.8 kg Body Mass Index (BMI) 33.9 Weight Status Obese GI Symptoms GI Symptoms None Last BM 02/06 Skin Integrity/Comment: Fredy 14, intact Current %PO Good (75-100%) Estimated Nutritional Goals BEE in Kcals: Adj wt of IBW Calories/Kcals/Kg 23-27 Kcals Calculated 0891-8322 Protein: Adj wt of IBW Protein g/k.8-1 Protein Calculated 61-76 Fluid: ml 1320-2565 Nutritional Problem 1. Problem Problem Altered nutrition related lab values R/T medical condition AEB POC glucose 107-187 Intervention/Recommendation Comments 1.Continue with [facility] diet as ordered 2.Monitor PO intake, wt, labs and skin integrity 3.F/U as low risk in 7 days Expected Outcomes/Goals Expected Outcomes/Goals 1. PO intake to meet at least 75% of nutritional needs. 2. Wt stability, skin to remain intact, labs to approach WNL. Kelly Jacinto, MPH, RDN
[2019-02-08] MEDS: Atorvastatin Calcium 10 MG TAB PO SCH (20:42)
--- NOTE | 2019-02-08 23:28 | Progress Notes ---
DATE: 02/08/2019 SUBJECTIVE: Chart was reviewed and the patient interviewed. Also discussed the patient's condition with the staff and reviewed records and labs. The patient is still agitated and anxious and is still in irritable mood at times. The patient also is still withdrawn and wants to be left alone and has minimum interaction with others. The patient also is denying any thoughts of suicide. He is still uncooperative with the staff and he is refusing to take psychotropic medications. Otherwise, the patient seems to be less agitated but still in a depressed mood. ASSESSMENT: The patient is still agitated and is still depressed. TREATMENT PLAN: Continue to monitor his behavior and his condition closely. Also, continue to work on his irritability and his noncompliance with treatment or medications. RECOMMENDATIONS: The patient said that he is going to take his medications and we will monitor that today. JOB# [id number]
[2019-02-09] MEDS: Pantoprazole 40 mg/Packet PO SCH (06:35)
[2019-02-09] MEDS: INSULIN LISPRO SLIDING SCALE 100 UNITS/ML UNIT SUBQ SCH ×3 (06:35→17:34)
[2019-02-09] MEDS: Budesonide 0.5 Mg/2 mL Ud HHN SCH ×2 (07:19→23:16)
--- NOTE | 2019-02-09 08:10 | Internal Medicine Prog Note ---
Internal Medicine Subjective - Subjective Service Date: 02/09/19 Patient is:: awake, verbal, agitated Patient Complaints of:: other (Patient was admitted for agitation and for striking staff.) Per staff patient has:: no adverse event, no episodes of fall Internal Medicine Objective - Results Result Diagrams: 02/03/19 20:11 02/03/19 20:11 Recent Labs: Laboratory Last Values WBC 9.0 Th/cmm (4.8-10.8) 02/03/19 20:11 RBC 3.84 Mil/cmm (3.80-5.80) 02/03/19 20:11 Hgb 11.6 gm/dL (12-16) L 02/03/19 20:11 Hct 34.9 % (41.0-60) L 02/03/19 20:11 MCV 90.7 fl (80-99) 02/03/19 20:11 MCH 30.3 pg (27.0-31.0) 02/03/19 20:11 MCHC Differential 33.4 pg (28.0-36.0) 02/03/19 20:11 RDW 14.2 % (11.5-20.0) 02/03/19 20:11 Plt Count 152 Th/cmm (150-400) 02/03/19 20:11 MPV 9.7 fl 02/03/19 20:11 Neutrophils % 57.3 % (40.0-80.0) 02/03/19 20:11 Lymphocytes % 30.1 % (20.0-50.0) 02/03/19 20:11 Monocytes % 8.6 % (2.0-10.0) 02/03/19 20:11 Eosinophils % 3.6 % (0.0-5.0) 02/03/19 20:11 Basophils % 0.4 % (0.0-2.0) 02/03/19 20:11 Sodium 138 mEq/L (136-145) 02/03/19 20:11 Potassium 4.0 mEq/L (3.5-5.1) 02/03/19 20:11 Chloride 105 mEq/L (98-107) 02/03/19 20:11 Carbon Dioxide 25.2 mEq/L (21.0-31.0) 02/03/19 20:11 Anion Gap 11.8 (7.0-16.0) 02/03/19 20:11 BUN 34 mg/dL (7-25) H 02/03/19 20:11 Creatinine 1.1 mg/dL (0.7-1.3) 02/03/19 20:11 Est GFR ( Amer) > 60.0 ml/min (>90) 02/03/19 20:11 Est GFR (Non-Af Amer) > 60.0 ml/min 02/03/19 20:11 BUN/Creatinine Ratio 30.9 02/03/19 20:11 Glucose 132 mg/dL (70-105) H 02/03/19 20:11 POC Glucose 96 MG/DL (70 - 105) 02/09/19 06:17 Calcium 8.8 mg/dL (8.6-10.3) 02/03/19 20:11 Total Bilirubin 0.4 mg/dL (0.3-1.0) 02/03/19 20:11 AST 15 U/L (13-39) 02/03/19 20:11 ALT 17 U/L (7-52) 02/03/19 20:11 Alkaline Phosphatase 131 U/L (34-104) H 02/03/19 20:11 B-Natriuretic Peptide 210.0 pg/mL (5.0-100.0) H 02/03/19 20:11 Total Protein 6.4 gm/dL (6.0-8.3) 02/03/19 20:11 Albumin 3.5 gm/dL (4.2-5.5) L 02/03/19 20:11 Globulin 2.9 gm/dL 02/03/19 20:11 Albumin/Globulin Ratio 1.2 (1.0-1.8) 02/03/19 20:11 Triglycerides 110 mg/dL (<150) 02/03/19 20:11 Cholesterol 94 mg/dL (<200) 02/03/19 20:11 LDL Cholesterol Direct 47 mg/dL (75-193) L 02/03/19 20:11 HDL Cholesterol 28 mg/dL (23-92) 02/03/19 20:11 TSH 0.93 uIU/ml (0.34-5.60) 02/03/19 20:11 - Physical Exam Vitals and I&O: Vital Signs Temp 97.6 F 02/09/19 06:12 Pulse 95 02/09/19 07:20 Resp 20 02/09/19 07:21 BP 136/70 02/09/19 06:12 Pulse Ox 97 02/09/19 07:20 Intake & Output 02/08/19 02/09/19 02/09/19 18:59 06:59 18:59 Intake Total 120 Balance 120 Intake: Oral 120 Other: # Voids 1 # Bowel Movements 0 Active Medications: Current Medications Acetaminophen (Tylenol) 650 mg PO Q6HR PRN PRN Reason: Pain (Moderate) Stop: 04/04/19 22:01 Acetaminophen (Tylenol Extra Strength) 500 mg PO Q4HR PRN PRN Reason: Pain (Mild) Stop: 04/04/19 22:01 Albuterol/Ipratropium (Duoneb Neb) 3 ml HHN Q6HRT PRN PRN Reason: Shortness of Breath Stop: 04/04/19 22:01 Last Admin: 02/08/19 07:06 Dose: 3 ml Allopurinol (Zyloprim) 100 mg PO DAILY [facility] Stop: 04/05/19 08:59 Last Admin: 02/08/19 08:23 Dose: 100 mg Aripiprazole (Abilify) 20 mg PO DAILY [facility]; Protocol Stop: 04/10/19 08:59 Aspirin (Aspirin Chewable) 81 mg PO DAILY [facility] Stop: 04/05/19 08:59 Last Admin: 02/08/19 08:23 Dose: 81 mg Atorvastatin Calcium (Lipitor) 60 mg PO HS [facility] Stop: 04/04/19 22:59 Last Admin: 02/08/19 20:42 Dose: 60 mg Budesonide (Pulmicort) 0.5 mg HHN BID [facility] Stop: 04/05/19 08:59 Last Admin: 02/09/19 07:19 Dose: 0.5 mg Buspirone HCl (Buspar) 15 mg PO BID [facility] Stop: 04/10/19 08:59 Citalopram Hydrobromide (Celexa) 40 mg PO DAILY [facility] Stop: 04/06/19 08:59 Last Admin: 02/08/19 08:22 Dose: 40 mg Dextrose (D50w) 50 ml IVP PRN PRN PRN Reason: Blood Glucose less than 70 Stop: 04/04/19 22:26 Dextrose (Glutose 40%) 18.75 gm PO PRN PRN PRN Reason: Blood Glucose less than 70 Stop: 04/04/19 22:26 Docusate Sodium (Colace) 100 mg PO DAILY [facility] Stop: 04/06/19 08:59 Last Admin: 02/08/19 08:23 Dose: 100 mg Ferrous Sulfate (Iron) 325 mg PO DAILY [facility] Stop: 04/05/19 08:59 Last Admin: 02/08/19 08:23 Dose: 325 mg Finasteride (Proscar) 5 mg PO DAILY [facility]; Protocol Stop: 04/05/19 08:59 Last Admin: 02/08/19 08:23 Dose: 5 mg Glucagon (Glucagen) 1 mg IM PRN PRN PRN Reason: Blood Glucose less than 70 Stop: 04/04/19 22:26 Glucagon (Glucagen) 1 mg IM PRN PRN PRN Reason: BLOOD SUGAR Stop: 04/05/19 12:38 Insulin Human Lispro (Humalog Insulin Sliding Scale) 0 units SUBQ ACHS [facility]; Protocol Stop: 04/05/19 07:29 Last Admin: 02/09/19 06:35 Dose: Not Given Isosorbide Mononitrate (Imdur) 60 mg PO DAILY [facility] Stop: 04/06/19 08:59 Last Admin: 02/08/19 08:29 Dose: 60 mg Lorazepam (Ativan) 0.5 mg PO Q4HR PRN; Protocol PRN Reason: Anxiety Stop: 03/05/19 21:42 Last Admin: 02/07/19 09:09 Dose: 0.5 mg Magnesium Oxide (Mag-Oxide) 400 mg PO BID [facility] Stop: 04/05/19 08:59 Last Admin: 02/08/19 17:04 Dose: 400 mg Metoprolol Tartrate (Lopressor) 25 mg PO BID [facility] Stop: 04/05/19 08:59 Last Admin: 02/08/19 17:05 Dose: 25 mg Nitroglycerin (Nitrostat) 0.4 mg SL Q5MIN PRN PRN Reason: Chest Pain Pantoprazole Sodium (Protonix) 40 mg PO QDAC [facility] Stop: 04/06/19 07:29 Last Admin: 02/09/19 06:35 Dose: 40 mg Potassium Chloride (Klor-Con) 20 meq PO DAILY [facility] Stop: 04/05/19 08:59 Last Admin: 02/08/19 08:24 Dose: 20 meq Rivastigmine (Exelon 4.6 Mg/24 Hr Tdm) 1 patch TD DAILY [facility] Stop: 04/06/19 08:59 Last Admin: 02/08/19 08:21 Dose: 1 patch Tamsulosin HCl (Flomax) 0.8 mg PO HS [facility] Stop: 04/05/19 20:59 Last Admin: 02/08/19 20:41 Dose: 0.8 mg Vitamin D (Vitamin D) 400 iu PO DAILY [facility] Stop: 04/05/19 08:59 Last Admin: 02/08/19 08:23 Dose: 400 iu Zolpidem Tartrate (Ambien) 5 mg PO HS PRN PRN Reason: Insomnia Stop: 04/04/19 21:42 General: demented, obese, NAD HEENT: NC/AT Neck: Supple, No JVD Lungs: CTAB Cardiovascular: other (irregular - hx afib) Abdomen: soft, non-tender Extremities: clear Neurological: no change, alert Internal Medicine Assmt/Plan - Assessment Assessment: Aggressive behavior of striking staff and episodes of hitting himself. Hypertension. Diabetes. CAD. CHF. asthma. COPD. CVA. Dementia/Confusion. Anemia. Hx of TIA. Hx of Left arm fracture. Hx of BPH. Hx of Angina. - Plan Plan: Continue plan of care. Monitor Vitals and behavior. Continue inpatient psychi. Safety precaution. Supportive care. Fall precaution, frequent nursing rounds, and as needed restraints to prevent fall. Continue collaborating with consulting specialists, case management and nursing team. Will Monitor patient and continue current treatment plan as ordered. Nutritional Asmnt/Malnutr-PDOC - Dietary Evaluation Malnutrition Findings (Please click <Entered> for more info): Nutritional Asmnt/Malnutrition Start: 02/08/19 18: 36 Text: Status: Active Freq: Protocol: Document 02/08/19 18:37 [email or web address] (Rec: 02/08/19 18:45 [email or web address]) Nutritional Asmnt/Malnutrition Patient General Information Nutritional Screening Moderate Risk Diagnosis Psychosis & Bipolar Disorder Pertinent Medical Hx/Surgical Hx HTN, DM, CAD, Asthma/COPD, CVA /TIA, Dementia, Anemia bph afib Subjective Information Pt seen in dining room at time of visit. Pt is confused and is unable to answer any questions. Per [employer] (Job), PO intake 100% for lunch today . Reports tolerating diet, no chew/swallow difficulty. Per chart, PO intake 100-100- 100% for 3 meals on 02/07. Current Diet Order/ Nutrition Support [facility], VICKI Pertinent Medications Lipitor, D50W, Glutose 40%, Colace, Iron, Glucagen, INS-SS , Mag-oxide, Lopressor Pertinent Labs 02/07 POC Glu 132, 151 02/08 POC Glu 107, 187 Nutritional Hx/Data Height 5 ft 6 in Height (Calculated Centimeters) 167.6 Current Weight (lbs) 210 lb Weight (Calculated Kilograms) 95.3 Weight (Calculated Grams) 95728.4 [place] Body Weight 63.8 kg Body Mass Index (BMI) 33.9 Weight Status Obese GI Symptoms GI Symptoms None Last BM 02/06 Skin Integrity/Comment: Fredy 14, intact Current %PO Good (75-100%) Estimated Nutritional Goals BEE in Kcals: Adj wt of IBW Calories/Kcals/Kg 23-27 Kcals Calculated 7512-3346 Protein: Adj wt of IBW Protein g/k.8-1 Protein Calculated 61-76 Fluid: ml 6901-8699 Nutritional Problem 1. Problem Problem Altered nutrition related lab values R/T medical condition AEB POC glucose 107-187 Intervention/Recommendation Comments 1.Continue with [facility] diet as ordered 2.Monitor PO intake, wt, labs and skin integrity 3.F/U as low risk in 7 days Expected Outcomes/Goals Expected Outcomes/Goals 1. PO intake to meet at least 75% of nutritional needs. 2. Wt stability, skin to remain intact, labs to approach WNL. Kelly Jacinto, MPH, RDN
[2019-02-09] MEDS: Ferrous Sulfate 325 MG TAB PO SCH (09:45)
[2019-02-09] MEDS: Aspirin 81mg Chewable Tab PO SCH (09:45)
[2019-02-09] MEDS: Potassium Chloride 20 mEq ER Tab PO SCH (09:46)
[2019-02-09] MEDS: Rivastigmine 4.6 mg/24 hr Tdm TD SCH (09:46)
--- NOTE | 2019-02-09 11:40 | Progress Notes ---
DATE: SUBJECTIVE: Chart was reviewed and the patient interviewed. Also discussed the patient's condition with the staff and reviewed records and labs. The patient is still selectively mute and is still easily agitated and aggressive. The patient is pacing up and down at the unit and entering other patient's rooms and is still actively hallucinating and uncooperative. Also, the patient is easily agitated and needs lots of redirections. He also still has difficulty following directions and is having unpredictable behavior. Otherwise, the patient is compliant with taking his medications with no side effects. ASSESSMENT: The patient is still agitated and is still psychotic. TREATMENT PLAN: Continue to monitor his behavior and his condition closely. Also, continue adjusting psychotropic medications. Also, we will increase the BuSpar to 15 mg twice a day and continue to follow up. [facility]# [id number]
[2019-02-09] MEDS: Atorvastatin Calcium 10 MG TAB PO SCH (20:19)
[2019-02-10] MEDS: Pantoprazole 40 mg/Packet PO SCH (07:00)
[2019-02-10] MEDS: INSULIN LISPRO SLIDING SCALE 100 UNITS/ML UNIT SUBQ SCH ×5 (07:04→21:13)
[2019-02-10] MEDS: Rivastigmine 4.6 mg/24 hr Tdm TD SCH (08:30)
[2019-02-10] MEDS: Potassium Chloride 20 mEq ER Tab PO SCH (08:32)
[2019-02-10] MEDS: Aspirin 81mg Chewable Tab PO SCH (08:32)
[2019-02-10] MEDS: Ferrous Sulfate 325 MG TAB PO SCH (08:32)
--- NOTE | 2019-02-10 18:58 | Progress Notes ---
DATE: 02/10/2019 SUBJECTIVE: Chart was reviewed and the patient interviewed. Also discussed the patient's condition with the staff and reviewed records and labs. The patient is still forgetful and he is still confused. The patient's affect is still flat. The patient also is still selectively mute. He also still has episodes of agitation and irritability. Also, still pacing up and down the unit aimlessly with difficulty redirecting him and also with active hallucinations, unpredictable behavior. ASSESSMENT: The patient is still psychotic and still needs close monitoring. TREATMENT PLAN: Continue monitoring his behavior. Yesterday, I increased BuSpar to 15 mg twice a day. We will also continue Abilify 20 mg every day and continue Celexa 40 mg every day and we will continue to follow up closely. JOB# [id number]
[2019-02-10] MEDS: Atorvastatin Calcium 10 MG TAB PO SCH (21:12)
--- NOTE | 2019-02-10 21:32 | Internal Medicine Prog Note ---
Internal Medicine Subjective - Subjective Service Date: 02/10/19 Patient seen and examined:: with staff Patient is:: awake, verbal, agitated Patient Complaints of:: other (Patient was admitted for agitation and for striking staff.) Per staff patient has:: no adverse event, no episodes of fall Internal Medicine Objective - Results Result Diagrams: 02/03/19 20:11 02/03/19 20:11 Recent Labs: Laboratory Last Values WBC 9.0 Th/cmm (4.8-10.8) 02/03/19 20:11 RBC 3.84 Mil/cmm (3.80-5.80) 02/03/19 20:11 Hgb 11.6 gm/dL (12-16) L 02/03/19 20:11 Hct 34.9 % (41.0-60) L 02/03/19 20:11 MCV 90.7 fl (80-99) 02/03/19 20:11 MCH 30.3 pg (27.0-31.0) 02/03/19 20:11 MCHC Differential 33.4 pg (28.0-36.0) 02/03/19 20:11 RDW 14.2 % (11.5-20.0) 02/03/19 20:11 Plt Count 152 Th/cmm (150-400) 02/03/19 20:11 MPV 9.7 fl 02/03/19 20:11 Neutrophils % 57.3 % (40.0-80.0) 02/03/19 20:11 Lymphocytes % 30.1 % (20.0-50.0) 02/03/19 20:11 Monocytes % 8.6 % (2.0-10.0) 02/03/19 20:11 Eosinophils % 3.6 % (0.0-5.0) 02/03/19 20:11 Basophils % 0.4 % (0.0-2.0) 02/03/19 20:11 Sodium 138 mEq/L (136-145) 02/03/19 20:11 Potassium 4.0 mEq/L (3.5-5.1) 02/03/19 20:11 Chloride 105 mEq/L (98-107) 02/03/19 20:11 Carbon Dioxide 25.2 mEq/L (21.0-31.0) 02/03/19 20:11 Anion Gap 11.8 (7.0-16.0) 02/03/19 20:11 BUN 34 mg/dL (7-25) H 02/03/19 20:11 Creatinine 1.1 mg/dL (0.7-1.3) 02/03/19 20:11 Est GFR ( Amer) > 60.0 ml/min (>90) 02/03/19 20:11 Est GFR (Non-Af Amer) > 60.0 ml/min 02/03/19 20:11 BUN/Creatinine Ratio 30.9 02/03/19 20:11 Glucose 132 mg/dL (70-105) H 02/03/19 20:11 POC Glucose 116 MG/DL (70 - 105) H 02/10/19 20:39 Calcium 8.8 mg/dL (8.6-10.3) 02/03/19 20:11 Total Bilirubin 0.4 mg/dL (0.3-1.0) 02/03/19 20:11 AST 15 U/L (13-39) 02/03/19 20:11 ALT 17 U/L (7-52) 02/03/19 20:11 Alkaline Phosphatase 131 U/L (34-104) H 02/03/19 20:11 B-Natriuretic Peptide 210.0 pg/mL (5.0-100.0) H 02/03/19 20:11 Total Protein 6.4 gm/dL (6.0-8.3) 02/03/19 20:11 Albumin 3.5 gm/dL (4.2-5.5) L 02/03/19 20:11 Globulin 2.9 gm/dL 02/03/19 20:11 Albumin/Globulin Ratio 1.2 (1.0-1.8) 02/03/19 20:11 Triglycerides 110 mg/dL (<150) 02/03/19 20:11 Cholesterol 94 mg/dL (<200) 02/03/19 20:11 LDL Cholesterol Direct 47 mg/dL (75-193) L 02/03/19 20:11 HDL Cholesterol 28 mg/dL (23-92) 02/03/19 20:11 TSH 0.93 uIU/ml (0.34-5.60) 02/03/19 20:11 RPR NONREACTIVE (NONREACTIVE) 02/03/19 20:11 - Physical Exam Vitals and I&O: Vital Signs Temp 97.3 F 02/10/19 14:00 Pulse 84 02/10/19 16:12 Resp 20 02/10/19 14:00 BP 102/69 02/10/19 16:12 Pulse Ox 94 02/10/19 14:00 Intake & Output 02/10/19 02/10/19 02/11/19 06:59 18:59 06:59 Intake Total 360 1100 Output Total 1 Balance 359 1100 Intake: Oral 360 980 Other 120 Output: Urine/Stool Mix 1 Other: # Voids 2 3 # Bowel Movements 2 0 Active Medications: Current Medications Acetaminophen (Tylenol) 650 mg PO Q6HR PRN PRN Reason: Pain (Moderate) Stop: 04/04/19 22:01 Acetaminophen (Tylenol Extra Strength) 500 mg PO Q4HR PRN PRN Reason: Pain (Mild) Stop: 04/04/19 22:01 Albuterol/Ipratropium (Duoneb Neb) 3 ml HHN Q6HRT PRN PRN Reason: Shortness of Breath Stop: 04/04/19 22:01 Last Admin: 02/08/19 07:06 Dose: 3 ml Allopurinol (Zyloprim) 100 mg PO DAILY [facility] Stop: 04/05/19 08:59 Last Admin: 02/10/19 08:36 Dose: 100 mg Aripiprazole (Abilify) 20 mg PO DAILY [facility]; Protocol Stop: 04/10/19 08:59 Last Admin: 02/10/19 08:31 Dose: 20 mg Aspirin (Aspirin Chewable) 81 mg PO DAILY [facility] Stop: 04/05/19 08:59 Last Admin: 02/10/19 08:32 Dose: 81 mg Atorvastatin Calcium (Lipitor) 60 mg PO HS [facility] Stop: 04/04/19 22:59 Last Admin: 02/10/19 21:12 Dose: 60 mg Budesonide (Pulmicort) 0.5 mg HHN BID [facility] Stop: 04/05/19 08:59 Last Admin: 02/09/19 23:16 Dose: Not Given Buspirone HCl (Buspar) 15 mg PO BID [facility] Stop: 04/10/19 08:59 Last Admin: 02/10/19 16:10 Dose: 15 mg Citalopram Hydrobromide (Celexa) 40 mg PO DAILY [facility] Stop: 04/06/19 08:59 Last Admin: 02/10/19 08:47 Dose: 40 mg Dextrose (D50w) 50 ml IVP PRN PRN PRN Reason: BS below 70 & not tolerate po Stop: 04/04/19 22:26 Dextrose (Glutose 40%) 18.75 gm PO PRN PRN PRN Reason: Blood Glucose less than 70 Stop: 04/04/19 22:26 Docusate Sodium (Colace) 100 mg PO DAILY [facility] Stop: 04/06/19 08:59 Last Admin: 02/10/19 08:37 Dose: 100 mg Ferrous Sulfate (Iron) 325 mg PO DAILY [facility] Stop: 04/05/19 08:59 Last Admin: 02/10/19 08:32 Dose: 325 mg Finasteride (Proscar) 5 mg PO DAILY [facility]; Protocol Stop: 04/05/19 08:59 Last Admin: 02/10/19 08:33 Dose: 5 mg Glucagon (Glucagen) 1 mg IM PRN PRN PRN Reason: BS below 70&dextrose ineffecti Stop: 04/04/19 22:26 Insulin Human Lispro (Humalog Insulin Sliding Scale) 0 units SUBQ ACHS [facility]; Protocol Stop: 04/05/19 07:29 Last Admin: 02/10/19 21:13 Dose: Not Given Isosorbide Mononitrate (Imdur) 60 mg PO DAILY [facility] Stop: 04/06/19 08:59 Last Admin: 02/10/19 08:41 Dose: 60 mg Lorazepam (Ativan) 0.5 mg PO Q4HR PRN; Protocol PRN Reason: Anxiety Stop: 03/05/19 21:42 Last Admin: 02/07/19 09:09 Dose: 0.5 mg Magnesium Oxide (Mag-Oxide) 400 mg PO BID [facility] Stop: 04/05/19 08:59 Last Admin: 02/10/19 16:10 Dose: 400 mg Metoprolol Tartrate (Lopressor) 25 mg PO BID [facility] Stop: 04/05/19 08:59 Last Admin: 02/10/19 16:12 Dose: Not Given Nitroglycerin (Nitrostat) 0.4 mg SL Q5MIN PRN PRN Reason: Chest Pain Pantoprazole Sodium (Protonix) 40 mg PO QDAC [facility] Stop: 04/06/19 07:29 Last Admin: 02/10/19 07:00 Dose: 40 mg Potassium Chloride (Klor-Con) 20 meq PO DAILY [facility] Stop: 04/05/19 08:59 Last Admin: 02/10/19 08:32 Dose: 20 meq Rivastigmine (Exelon 4.6 Mg/24 Hr Tdm) 1 patch TD DAILY [facility] Stop: 04/06/19 08:59 Last Admin: 02/10/19 08:30 Dose: 1 patch Tamsulosin HCl (Flomax) 0.8 mg PO HS [facility] Stop: 04/05/19 20:59 Last Admin: 02/10/19 21:13 Dose: 0.8 mg Vitamin D (Vitamin D) 400 iu PO DAILY [facility] Stop: 04/05/19 08:59 Last Admin: 02/10/19 08:47 Dose: 400 iu Zolpidem Tartrate (Ambien) 5 mg PO HS PRN PRN Reason: Insomnia Stop: 04/04/19 21:42 Physical Exam: 68 y/o male patient is still psychotic, needs close monitoring. General: demented, obese, NAD HEENT: NC/AT Neck: Supple, No JVD Lungs: CTAB Cardiovascular: other (irregular - hx afib) Abdomen: soft, non-tender Extremities: clear Neurological: no change, alert Internal Medicine Assmt/Plan - Assessment Assessment: Aggressive behavior of striking staff and episodes of hitting himself. Acute psychosis. Hypertension. Diabetes. CAD. CHF. asthma. COPD. CVA. Dementia/Confusion. Anemia. Hx of TIA. Hx of Left arm fracture. Hx of BPH. Hx of Angina. - Plan Plan: Continuation of care. Monitor Vitals and Labs. Continue present meds as directed. Monitor vitals, continue B/P meds. Accu-check daily, Continue DM meds as directed. Monitor Diet/Nutritional support. Psych management per Psych. Pain Management. Safety precaution. Supportive care. Fall precaution, frequent nursing rounds, and as needed restraints to prevent fall. Continue collaborating with consulting specialists, case management and nursing team. Will Monitor patient and continue present care management. Nutritional Asmnt/Malnutr-PDOC - Dietary Evaluation Malnutrition Findings (Please click <Entered> for more info): Nutritional Asmnt/Malnutrition Start: 02/08/19 18: 36 Text: Status: Active Freq: Protocol: Document 02/08/19 18:37 [email or web address] (Rec: 02/08/19 18:45 [email or web address]) Nutritional Asmnt/Malnutrition Patient General Information Nutritional Screening Moderate Risk Diagnosis Psychosis & Bipolar Disorder Pertinent Medical Hx/Surgical Hx HTN, DM, CAD, Asthma/COPD, CVA /TIA, Dementia, Anemia bph afib Subjective Information Pt seen in dining room at time of visit. Pt is confused and is unable to answer any questions. 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 Reports tolerating diet, no chew/swallow difficulty. Per chart, PO intake 100-100- 100% for 3 meals on 02/07. Current Diet Order/ Nutrition Support CCHO, VICKI Pertinent Medications Lipitor, D50W, Glutose 40%, Colace, Iron, Glucagen, INS-SS , Mag-oxide, Lopressor Pertinent Labs 02/07 POC Glu 132, 151 02/08 POC Glu 107, 187 Nutritional Hx/Data Height 1.68 m Height (Calculated Centimeters) 167.6 Current Weight (lbs) 95.254 kg Weight (Calculated Kilograms) 95.3 Weight (Calculated Grams) 61874.4 [place] Body Weight 63.8 kg Body Mass Index (BMI) 33.9 Weight Status Obese GI Symptoms GI Symptoms None Last BM 02/06 Skin Integrity/Comment: Fredy 14, intact Current %PO Good (75-100%) Estimated Nutritional Goals BEE in Kcals: Adj wt of IBW Calories/Kcals/Kg 23-27 Kcals Calculated Protein: Adj wt of IBW Protein g/k.8-1 Protein Calculated 61-76 Fluid: ml 6146-0254 Nutritional Problem 1. Problem Problem Altered nutrition related lab values R/T medical condition AEB POC glucose 107-187 Intervention/Recommendation Comments 1.Continue with [facility] diet as ordered 2.Monitor PO intake, wt, labs and skin integrity 3.F/U as low risk in 7 days Expected Outcomes/Goals Expected Outcomes/Goals 1. PO intake to meet at least 75% of nutritional needs. 2. Wt stability, skin to remain intact, labs to approach WNL. Kelly Jacinto, MPH, RDN
[2019-02-11] MEDS: Pantoprazole 40 mg/Packet PO SCH (06:34)
[2019-02-11] MEDS: INSULIN LISPRO SLIDING SCALE 100 UNITS/ML UNIT SUBQ SCH ×4 (06:35→20:57)
[2019-02-11] MEDS: Rivastigmine 4.6 mg/24 hr Tdm TD SCH (08:43)
[2019-02-11] MEDS: Aspirin 81mg Chewable Tab PO SCH (08:46)
[2019-02-11] MEDS: Potassium Chloride 20 mEq ER Tab PO SCH (08:46)
[2019-02-11] MEDS: Ferrous Sulfate 325 MG TAB PO SCH (08:46)
[2019-02-11] MEDS: Budesonide 0.5 Mg/2 mL Ud HHN SCH ×2 (08:51→19:23)
--- NOTE | 2019-02-11 13:19 | Internal Medicine Prog Note ---
Internal Medicine Subjective - Subjective Service Date: 02/11/19 Patient is:: awake, verbal, agitated Patient Complaints of:: other (Patient was admitted for agitation and for striking staff.) Per staff patient has:: no adverse event, no episodes of fall Internal Medicine Objective - Results Result Diagrams: 02/03/19 20:11 02/03/19 20:11 Recent Labs: Laboratory Last Values WBC 9.0 Th/cmm (4.8-10.8) 02/03/19 20:11 RBC 3.84 Mil/cmm (3.80-5.80) 02/03/19 20:11 Hgb 11.6 gm/dL (12-16) L 02/03/19 20:11 Hct 34.9 % (41.0-60) L 02/03/19 20:11 MCV 90.7 fl (80-99) 02/03/19 20:11 MCH 30.3 pg (27.0-31.0) 02/03/19 20:11 MCHC Differential 33.4 pg (28.0-36.0) 02/03/19 20:11 RDW 14.2 % (11.5-20.0) 02/03/19 20:11 Plt Count 152 Th/cmm (150-400) 02/03/19 20:11 MPV 9.7 fl 02/03/19 20:11 Neutrophils % 57.3 % (40.0-80.0) 02/03/19 20:11 Lymphocytes % 30.1 % (20.0-50.0) 02/03/19 20:11 Monocytes % 8.6 % (2.0-10.0) 02/03/19 20:11 Eosinophils % 3.6 % (0.0-5.0) 02/03/19 20:11 Basophils % 0.4 % (0.0-2.0) 02/03/19 20:11 Sodium 138 mEq/L (136-145) 02/03/19 20:11 Potassium 4.0 mEq/L (3.5-5.1) 02/03/19 20:11 Chloride 105 mEq/L (98-107) 02/03/19 20:11 Carbon Dioxide 25.2 mEq/L (21.0-31.0) 02/03/19 20:11 Anion Gap 11.8 (7.0-16.0) 02/03/19 20:11 BUN 34 mg/dL (7-25) H 02/03/19 20:11 Creatinine 1.1 mg/dL (0.7-1.3) 02/03/19 20:11 Est GFR ( Amer) > 60.0 ml/min (>90) 02/03/19 20:11 Est GFR (Non-Af Amer) > 60.0 ml/min 02/03/19 20:11 BUN/Creatinine Ratio 30.9 02/03/19 20:11 Glucose 132 mg/dL (70-105) H 02/03/19 20:11 POC Glucose 131 MG/DL (70 - 105) H 02/11/19 05:54 Calcium 8.8 mg/dL (8.6-10.3) 02/03/19 20:11 Total Bilirubin 0.4 mg/dL (0.3-1.0) 02/03/19 20:11 AST 15 U/L (13-39) 02/03/19 20:11 ALT 17 U/L (7-52) 02/03/19 20:11 Alkaline Phosphatase 131 U/L (34-104) H 02/03/19 20:11 B-Natriuretic Peptide 210.0 pg/mL (5.0-100.0) H 02/03/19 20:11 Total Protein 6.4 gm/dL (6.0-8.3) 02/03/19 20:11 Albumin 3.5 gm/dL (4.2-5.5) L 02/03/19 20:11 Globulin 2.9 gm/dL 02/03/19 20:11 Albumin/Globulin Ratio 1.2 (1.0-1.8) 02/03/19 20:11 Triglycerides 110 mg/dL (<150) 02/03/19 20:11 Cholesterol 94 mg/dL (<200) 02/03/19 20:11 LDL Cholesterol Direct 47 mg/dL (75-193) L 02/03/19 20:11 HDL Cholesterol 28 mg/dL (23-92) 02/03/19 20:11 TSH 0.93 uIU/ml (0.34-5.60) 02/03/19 20:11 RPR NONREACTIVE (NONREACTIVE) 02/03/19 20:11 - Physical Exam Vitals and I&O: Vital Signs Temp 97 F 02/11/19 06:23 Pulse 86 02/11/19 08:54 Resp 20 02/11/19 08:54 BP 117/61 02/11/19 08:45 Pulse Ox 96 02/11/19 08:54 Intake & Output 02/10/19 02/11/19 02/11/19 18:59 06:59 18:59 Intake Total 1100 120 Balance 1100 120 Intake: Oral 980 120 Other 120 Other: # Voids 3 3 # Bowel Movements 0 Active Medications: Current Medications Acetaminophen (Tylenol) 650 mg PO Q6HR PRN PRN Reason: Pain (Moderate) Stop: 04/04/19 22:01 Acetaminophen (Tylenol Extra Strength) 500 mg PO Q4HR PRN PRN Reason: Pain (Mild) Stop: 04/04/19 22:01 Albuterol/Ipratropium (Duoneb Neb) 3 ml HHN Q6HRT PRN PRN Reason: Shortness of Breath Stop: 04/04/19 22:01 Last Admin: 02/08/19 07:06 Dose: 3 ml Allopurinol (Zyloprim) 100 mg PO DAILY [facility] Stop: 04/05/19 08:59 Last Admin: 02/11/19 08:46 Dose: 100 mg Aripiprazole (Abilify) 20 mg PO DAILY [facility]; Protocol Stop: 04/10/19 08:59 Last Admin: 02/11/19 08:43 Dose: 20 mg Aspirin (Aspirin Chewable) 81 mg PO DAILY [facility] Stop: 04/05/19 08:59 Last Admin: 02/11/19 08:46 Dose: 81 mg Atorvastatin Calcium (Lipitor) 60 mg PO [facility] Stop: 04/04/19 22:59 Last Admin: 02/10/19 21:12 Dose: 60 mg Budesonide (Pulmicort) 0.5 mg HHN BID [facility] Stop: 04/05/19 08:59 Last Admin: 02/11/19 08:51 Dose: 0.5 mg Buspirone HCl (Buspar) 15 mg PO BID [facility] Stop: 04/10/19 08:59 Last Admin: 02/11/19 08:44 Dose: 15 mg Citalopram Hydrobromide (Celexa) 40 mg PO DAILY [facility] Stop: 04/06/19 08:59 Last Admin: 02/11/19 08:46 Dose: 40 mg Dextrose (D50w) 50 ml IVP PRN PRN PRN Reason: BS below 70 & not tolerate po Stop: 04/04/19 22:26 Dextrose (Glutose 40%) 18.75 gm PO PRN PRN PRN Reason: Blood Glucose less than 70 Stop: 04/04/19 22:26 Docusate Sodium (Colace) 100 mg PO DAILY [facility] Stop: 04/06/19 08:59 Last Admin: 02/11/19 08:45 Dose: 100 mg Ferrous Sulfate (Iron) 325 mg PO DAILY [facility] Stop: 04/05/19 08:59 Last Admin: 02/11/19 08:46 Dose: 325 mg Finasteride (Proscar) 5 mg PO DAILY [facility]; Protocol Stop: 04/05/19 08:59 Last Admin: 02/11/19 08:45 Dose: 5 mg Glucagon (Glucagen) 1 mg IM PRN PRN PRN Reason: BS below 70&dextrose ineffecti Stop: 04/04/19 22:26 Insulin Human Lispro (Humalog Insulin Sliding Scale) 0 units SUBQ ACHS [facility]; Protocol Stop: 04/05/19 07:29 Last Admin: 02/11/19 11:15 Dose: Not Given Isosorbide Mononitrate (Imdur) 60 mg PO DAILY [facility] Stop: 04/06/19 08:59 Last Admin: 02/11/19 08:44 Dose: 60 mg Lorazepam (Ativan) 0.5 mg PO Q4HR PRN; Protocol PRN Reason: Anxiety Stop: 03/05/19 21:42 Last Admin: 02/07/19 09:09 Dose: 0.5 mg Magnesium Oxide (Mag-Oxide) 400 mg PO BID [facility] Stop: 04/05/19 08:59 Last Admin: 02/11/19 08:44 Dose: 400 mg Metoprolol Tartrate (Lopressor) 25 mg PO BID [facility] Stop: 04/05/19 08:59 Last Admin: 02/11/19 08:45 Dose: Not Given Nitroglycerin (Nitrostat) 0.4 mg SL Q5MIN PRN PRN Reason: Chest Pain Pantoprazole Sodium (Protonix) 40 mg PO QDAC [facility] Stop: 04/06/19 07:29 Last Admin: 02/11/19 06:34 Dose: 40 mg Potassium Chloride (Klor-Con) 20 meq PO DAILY [facility] Stop: 04/05/19 08:59 Last Admin: 02/11/19 08:46 Dose: 20 meq Rivastigmine (Exelon 4.6 Mg/24 Hr Tdm) 1 patch TD DAILY [facility] Stop: 04/06/19 08:59 Last Admin: 02/11/19 08:43 Dose: 1 patch Tamsulosin HCl (Flomax) 0.8 mg PO HS [facility] Stop: 04/05/19 20:59 Last Admin: 02/10/19 21:13 Dose: 0.8 mg Vitamin D (Vitamin D) 400 iu PO DAILY [facility] Stop: 04/05/19 08:59 Last Admin: 02/11/19 08:46 Dose: 400 iu Zolpidem Tartrate (Ambien) 5 mg PO HS PRN PRN Reason: Insomnia Stop: 04/04/19 21:42 General: demented, obese, NAD HEENT: NC/AT Neck: Supple, No JVD Lungs: CTAB Cardiovascular: other (irregular - hx afib) Abdomen: soft, non-tender Extremities: clear Neurological: no change, alert Internal Medicine Assmt/Plan - Assessment Assessment: Aggressive behavior of striking staff and episodes of hitting himself. Hypertension. Diabetes. CAD. CHF. asthma. COPD. CVA. Dementia/Confusion. Anemia. Hx of TIA. Hx of Left arm fracture. Hx of BPH. Hx of Angina. - Plan Plan: Continue plan of care. Monitor Vitals and behavior. Continue inpatient psychi. Safety precaution. Supportive care. Fall precaution, frequent nursing rounds, and as needed restraints to prevent fall. Continue collaborating with consulting specialists, case management and nursing team. Will Monitor patient and continue current treatment plan as ordered. Nutritional Asmnt/Malnutr-PDOC - Dietary Evaluation Malnutrition Findings (Please click <Entered> for more info): Nutritional Asmnt/Malnutrition Start: 02/08/19 18: 36 Text: Status: Active Freq: Protocol: Document 02/08/19 18:37 [email or web address] (Rec: 02/08/19 18:45 [email or web address]) Nutritional Asmnt/Malnutrition Patient General Information Nutritional Screening Moderate Risk Diagnosis Psychosis & Bipolar Disorder Pertinent Medical Hx/Surgical Hx HTN, DM, CAD, Asthma/COPD, CVA /TIA, Dementia, Anemia bph afib Subjective Information Pt seen in dining room at time of visit. Pt is confused and is unable to answer any questions. Per [employer] (Job), PO intake 100% for lunch today . Reports tolerating diet, no chew/swallow difficulty. Per chart, PO intake 100-100- 100% for 3 meals on 02/07. Current Diet Order/ Nutrition Support CCHO, VICKI Pertinent Medications Lipitor, D50W, Glutose 40%, Colace, Iron, Glucagen, INS-SS , Mag-oxide, Lopressor Pertinent Labs 02/07 POC Glu 132, 151 02/08 POC Glu 107, 187 Nutritional Hx/Data Height 5 ft 6 in Height (Calculated Centimeters) 167.6 Current Weight (lbs) 210 lb Weight (Calculated Kilograms) 95.3 Weight (Calculated Grams) 72798.4 [place] Body Weight 63.8 kg Body Mass Index (BMI) 33.9 Weight Status Obese GI Symptoms GI Symptoms None Last BM 02/06 Skin Integrity/Comment: Fredy 14, intact Current %PO Good (75-100%) Estimated Nutritional Goals BEE in Kcals: Adj wt of IBW Calories/Kcals/Kg 23-27 Kcals Calculated 8788-0777 Protein: Adj wt of IBW Protein g/k.8-1 Protein Calculated 61-76 Fluid: ml 2423-7623 Nutritional Problem 1. Problem Problem Altered nutrition related lab values R/T medical condition AEB POC glucose 107-187 Intervention/Recommendation Comments 1.Continue with [facility] diet as ordered 2.Monitor PO intake, wt, labs and skin integrity 3.F/U as low risk in 7 days Expected Outcomes/Goals Expected Outcomes/Goals 1. PO intake to meet at least 75% of nutritional needs. 2. Wt stability, skin to remain intact, labs to approach WNL. Kelly Jacinto, MPH, RDN
[2019-02-11] MEDS: Atorvastatin Calcium 10 MG TAB PO SCH (20:52)
--- NOTE | 2019-02-12 02:22 | Progress Notes ---
DATE: SUBJECTIVE: Chart was reviewed and the patient interviewed. Also discussed the patient's condition with the staff and reviewed records and labs. The patient is still isolative and withdrawn, although he starts to come out of his room more and starts to interact slightly more. The patient also seems to be less irritable and less agitated. The patient also is having less anger. He also has been spending more time watching TV. The patient also has been compliant with taking his medications. ASSESSMENT: The patient is still depressed and confused, but seems to be less than before. TREATMENT PLAN: Continue Abilify, BuSpar, and Celexa at same dose. Also, continue monitoring behavior and working on discharge plans. JOB# [id number]
[2019-02-12] MEDS: INSULIN LISPRO SLIDING SCALE 100 UNITS/ML UNIT SUBQ SCH ×4 (06:30→21:12)
[2019-02-12] MEDS: Pantoprazole 40 mg/Packet PO SCH (06:30)
[2019-02-12] MEDS: Budesonide 0.5 Mg/2 mL Ud HHN SCH ×2 (06:30→18:56)
[2019-02-12] MEDS: Aspirin 81mg Chewable Tab PO SCH (08:48)
[2019-02-12] MEDS: Ferrous Sulfate 325 MG TAB PO SCH (08:49)
[2019-02-12] MEDS: Rivastigmine 4.6 mg/24 hr Tdm TD SCH (08:50)
--- NOTE | 2019-02-12 12:22 | Internal Medicine Prog Note ---
Internal Medicine Subjective - Subjective Service Date: 02/12/19 Patient seen and examined:: with staff Patient is:: awake, verbal, agitated Patient Complaints of:: other (Patient was admitted for agitation and for striking staff.) Per staff patient has:: no adverse event, no episodes of fall Internal Medicine Objective - Results Result Diagrams: 02/03/19 20:11 02/03/19 20:11 Recent Labs: Laboratory Last Values WBC 9.0 Th/cmm (4.8-10.8) 02/03/19 20:11 RBC 3.84 Mil/cmm (3.80-5.80) 02/03/19 20:11 Hgb 11.6 gm/dL (12-16) L 02/03/19 20:11 Hct 34.9 % (41.0-60) L 02/03/19 20:11 MCV 90.7 fl (80-99) 02/03/19 20:11 MCH 30.3 pg (27.0-31.0) 02/03/19 20:11 MCHC Differential 33.4 pg (28.0-36.0) 02/03/19 20:11 RDW 14.2 % (11.5-20.0) 02/03/19 20:11 Plt Count 152 Th/cmm (150-400) 02/03/19 20:11 MPV 9.7 fl 02/03/19 20:11 Neutrophils % 57.3 % (40.0-80.0) 02/03/19 20:11 Lymphocytes % 30.1 % (20.0-50.0) 02/03/19 20:11 Monocytes % 8.6 % (2.0-10.0) 02/03/19 20:11 Eosinophils % 3.6 % (0.0-5.0) 02/03/19 20:11 Basophils % 0.4 % (0.0-2.0) 02/03/19 20:11 Sodium 138 mEq/L (136-145) 02/03/19 20:11 Potassium 4.0 mEq/L (3.5-5.1) 02/03/19 20:11 Chloride 105 mEq/L (98-107) 02/03/19 20:11 Carbon Dioxide 25.2 mEq/L (21.0-31.0) 02/03/19 20:11 Anion Gap 11.8 (7.0-16.0) 02/03/19 20:11 BUN 34 mg/dL (7-25) H 02/03/19 20:11 Creatinine 1.1 mg/dL (0.7-1.3) 02/03/19 20:11 Est GFR ( Amer) > 60.0 ml/min (>90) 02/03/19 20:11 Est GFR (Non-Af Amer) > 60.0 ml/min 02/03/19 20:11 BUN/Creatinine Ratio 30.9 02/03/19 20:11 Glucose 132 mg/dL (70-105) H 02/03/19 20:11 POC Glucose 144 MG/DL (70 - 105) H 02/12/19 12:00 Calcium 8.8 mg/dL (8.6-10.3) 02/03/19 20:11 Total Bilirubin 0.4 mg/dL (0.3-1.0) 02/03/19 20:11 AST 15 U/L (13-39) 02/03/19 20:11 ALT 17 U/L (7-52) 02/03/19 20:11 Alkaline Phosphatase 131 U/L (34-104) H 02/03/19 20:11 B-Natriuretic Peptide 210.0 pg/mL (5.0-100.0) H 02/03/19 20:11 Total Protein 6.4 gm/dL (6.0-8.3) 02/03/19 20:11 Albumin 3.5 gm/dL (4.2-5.5) L 02/03/19 20:11 Globulin 2.9 gm/dL 02/03/19 20:11 Albumin/Globulin Ratio 1.2 (1.0-1.8) 02/03/19 20:11 Triglycerides 110 mg/dL (<150) 02/03/19 20:11 Cholesterol 94 mg/dL (<200) 02/03/19 20:11 LDL Cholesterol Direct 47 mg/dL (75-193) L 02/03/19 20:11 HDL Cholesterol 28 mg/dL (23-92) 02/03/19 20:11 TSH 0.93 uIU/ml (0.34-5.60) 02/03/19 20:11 RPR NONREACTIVE (NONREACTIVE) 02/03/19 20:11 - Physical Exam Vitals and I&O: Vital Signs Temp 97.2 F 02/12/19 06:26 Pulse 106 02/12/19 08:50 Resp 18 02/12/19 07:16 BP 139/73 02/12/19 08:50 Pulse Ox 99 02/12/19 07:16 Intake & Output 02/11/19 02/12/19 02/12/19 18:59 06:59 18:59 Intake Total 120 Balance 120 Intake: Oral 120 Other: # Voids 4 3 # Bowel Movements 0 Active Medications: Current Medications Acetaminophen (Tylenol) 650 mg PO Q6HR PRN PRN Reason: Pain (Moderate) Stop: 04/04/19 22:01 Acetaminophen (Tylenol Extra Strength) 500 mg PO Q4HR PRN PRN Reason: Pain (Mild) Stop: 04/04/19 22:01 Albuterol/Ipratropium (Duoneb Neb) 3 ml HHN Q6HRT PRN PRN Reason: Shortness of Breath Stop: 04/04/19 22:01 Last Admin: 02/08/19 07:06 Dose: 3 ml Allopurinol (Zyloprim) 100 mg PO DAILY [facility] Stop: 04/05/19 08:59 Last Admin: 02/12/19 08:47 Dose: 100 mg Aripiprazole (Abilify) 20 mg PO DAILY [facility]; Protocol Stop: 04/10/19 08:59 Last Admin: 02/12/19 08:48 Dose: 20 mg Aspirin (Aspirin Chewable) 81 mg PO DAILY [facility] Stop: 04/05/19 08:59 Last Admin: 02/12/19 08:48 Dose: 81 mg Atorvastatin Calcium (Lipitor) 60 mg PO HS [facility] Stop: 04/04/19 22:59 Last Admin: 02/11/19 20:52 Dose: 60 mg Budesonide (Pulmicort) 0.5 mg HHN BID [facility] Stop: 04/05/19 08:59 Last Admin: 02/12/19 06:30 Dose: 0.5 mg Buspirone HCl (Buspar) 15 mg PO BID [facility] Stop: 04/10/19 08:59 Last Admin: 02/12/19 08:48 Dose: 15 mg Citalopram Hydrobromide (Celexa) 40 mg PO DAILY [facility] Stop: 04/06/19 08:59 Last Admin: 02/12/19 08:48 Dose: 40 mg Dextrose (D50w) 50 ml IVP PRN PRN PRN Reason: BS below 70 & not tolerate po Stop: 04/04/19 22:26 Dextrose (Glutose 40%) 18.75 gm PO PRN PRN PRN Reason: Blood Glucose less than 70 Stop: 04/04/19 22:26 Docusate Sodium (Colace) 100 mg PO DAILY [facility] Stop: 04/06/19 08:59 Last Admin: 02/12/19 08:49 Dose: 100 mg Ferrous Sulfate (Iron) 325 mg PO DAILY [facility] Stop: 04/05/19 08:59 Last Admin: 02/12/19 08:49 Dose: 325 mg Finasteride (Proscar) 5 mg PO DAILY [facility]; Protocol Stop: 04/05/19 08:59 Last Admin: 02/12/19 08:49 Dose: 5 mg Glucagon (Glucagen) 1 mg IM PRN PRN PRN Reason: BS below 70&dextrose ineffecti Stop: 04/04/19 22:26 Insulin Human Lispro (Humalog Insulin Sliding Scale) 0 units SUBQ ACHS [facility]; Protocol Stop: 04/05/19 07:29 Last Admin: 02/12/19 06:30 Dose: Not Given Isosorbide Mononitrate (Imdur) 60 mg PO DAILY [facility] Stop: 04/06/19 08:59 Last Admin: 02/12/19 08:49 Dose: 60 mg Lorazepam (Ativan) 0.5 mg PO Q4HR PRN; Protocol PRN Reason: Anxiety Stop: 03/05/19 21:42 Last Admin: 02/07/19 09:09 Dose: 0.5 mg Magnesium Oxide (Mag-Oxide) 400 mg PO BID [facility] Stop: 04/05/19 08:59 Last Admin: 02/12/19 08:50 Dose: 400 mg Metoprolol Tartrate (Lopressor) 25 mg PO BID [facility] Stop: 04/05/19 08:59 Last Admin: 02/12/19 08:50 Dose: 25 mg Nitroglycerin (Nitrostat) 0.4 mg SL Q5MIN PRN PRN Reason: Chest Pain Pantoprazole Sodium (Protonix) 40 mg PO QDAC [facility] Stop: 04/06/19 07:29 Last Admin: 02/12/19 06:30 Dose: 40 mg Potassium Chloride (Klor-Con) 20 meq PO DAILY [facility] Stop: 04/05/19 08:59 Last Admin: 02/11/19 08:46 Dose: 20 meq Rivastigmine (Exelon 4.6 Mg/24 Hr Tdm) 1 patch TD DAILY [facility] Stop: 04/06/19 08:59 Last Admin: 02/12/19 08:50 Dose: 1 patch Tamsulosin HCl (Flomax) 0.8 mg PO HS [facility] Stop: 04/05/19 20:59 Last Admin: 02/11/19 20:52 Dose: 0.8 mg Vitamin D (Vitamin D) 400 iu PO DAILY [facility] Stop: 04/05/19 08:59 Last Admin: 02/12/19 08:51 Dose: 400 iu Zolpidem Tartrate (Ambien) 5 mg PO HS PRN PRN Reason: Insomnia Stop: 04/04/19 21:42 Physical Exam: 68 y/o male patient remains psychotic, butt less depressed, still needs close monitoring. General: demented, obese, NAD HEENT: NC/AT Neck: Supple, No JVD Lungs: CTAB Cardiovascular: other (irregular - hx afib) Abdomen: soft, non-tender Extremities: clear Neurological: no change, alert Internal Medicine Assmt/Plan - Assessment Assessment: Depression. Aggressive behavior of striking staff and episodes of hitting himself. Acute psychosis. Hypertension. Diabetes. CAD. CHF. asthma. COPD. CVA. Dementia/Confusion. Anemia. Hx of TIA. Hx of Left arm fracture. Hx of BPH. Hx of Angina. - Plan Plan: Continuation of care. Monitor Vitals and Labs. Continue present meds as directed. Monitor vitals, continue B/P meds. Accu-check daily, Continue DM meds as directed. Monitor Diet/Nutritional support. Psych management per Psych. Pain Management. Safety precaution. Supportive care. Fall precaution, frequent nursing rounds, and as needed restraints to prevent fall. Continue collaborating with consulting specialists, case management and nursing team. Will Monitor patient and continue present care management. Nutritional Asmnt/Malnutr-PDOC - Dietary Evaluation Malnutrition Findings (Please click <Entered> for more info): Nutritional Asmnt/Malnutrition Start: 02/08/19 18: 36 Text: Status: Active Freq: Protocol: Document 02/08/19 18:37 [email or web address] (Rec: 02/08/19 18:45 [email or web address]) Nutritional Asmnt/Malnutrition Patient General Information Nutritional Screening Moderate Risk Diagnosis Psychosis & Bipolar Disorder Pertinent Medical Hx/Surgical Hx HTN, DM, CAD, Asthma/COPD, CVA /TIA, Dementia, Anemia bph afib Subjective Information Pt seen in dining room at time of visit. Pt is confused and is unable to answer any questions. 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 Reports tolerating diet, no chew/swallow difficulty. Per chart, PO intake 100-100- 100% for 3 meals on 02/07. Current Diet Order/ Nutrition Support CCHO, VICKI Pertinent Medications Lipitor, D50W, Glutose 40%, Colace, Iron, Glucagen, INS-SS , Mag-oxide, Lopressor Pertinent Labs 02/07 POC Glu 132, 151 02/08 POC Glu 107, 187 Nutritional Hx/Data Height 1.68 m Height (Calculated Centimeters) 167.6 Current Weight (lbs) 95.254 kg Weight (Calculated Kilograms) 95.3 Weight (Calculated Grams) 69344.4 [place] Body Weight 63.8 kg Body Mass Index (BMI) 33.9 Weight Status Obese GI Symptoms GI Symptoms None Last BM 02/06 Skin Integrity/Comment: Fredy 14, intact Current %PO Good (75-100%) Estimated Nutritional Goals BEE in Kcals: Adj wt of IBW Calories/Kcals/Kg 23-27 Kcals Calculated Protein: Adj wt of IBW Protein g/k.8-1 Protein Calculated 61-76 Fluid: ml 9911-3641 Nutritional Problem 1. Problem Problem Altered nutrition related lab values R/T medical condition AEB POC glucose 107-187 Intervention/Recommendation Comments 1.Continue with [facility], VICKI diet as ordered 2.Monitor PO intake, wt, labs and skin integrity 3.F/U as low risk in 7 days Expected Outcomes/Goals Expected Outcomes/Goals 1. PO intake to meet at least 75% of nutritional needs. 2. Wt stability, skin to remain intact, labs to approach WNL. Kelly Jacinto, MPH, RDN
--- NOTE | 2019-02-12 12:48 | Internal Medicine Prog Note ---
Internal Medicine Subjective - Subjective Service Date: 02/12/19 Patient seen and examined:: with staff Patient is:: awake, verbal, agitated Patient Complaints of:: other (Patient was admitted for agitation and for striking staff.) Per staff patient has:: no adverse event, no episodes of fall Internal Medicine Objective - Results Result Diagrams: 02/03/19 20:11 02/03/19 20:11 Recent Labs: Laboratory Last Values WBC 9.0 Th/cmm (4.8-10.8) 02/03/19 20:11 RBC 3.84 Mil/cmm (3.80-5.80) 02/03/19 20:11 Hgb 11.6 gm/dL (12-16) L 02/03/19 20:11 Hct 34.9 % (41.0-60) L 02/03/19 20:11 MCV 90.7 fl (80-99) 02/03/19 20:11 MCH 30.3 pg (27.0-31.0) 02/03/19 20:11 MCHC Differential 33.4 pg (28.0-36.0) 02/03/19 20:11 RDW 14.2 % (11.5-20.0) 02/03/19 20:11 Plt Count 152 Th/cmm (150-400) 02/03/19 20:11 MPV 9.7 fl 02/03/19 20:11 Neutrophils % 57.3 % (40.0-80.0) 02/03/19 20:11 Lymphocytes % 30.1 % (20.0-50.0) 02/03/19 20:11 Monocytes % 8.6 % (2.0-10.0) 02/03/19 20:11 Eosinophils % 3.6 % (0.0-5.0) 02/03/19 20:11 Basophils % 0.4 % (0.0-2.0) 02/03/19 20:11 Sodium 138 mEq/L (136-145) 02/03/19 20:11 Potassium 4.0 mEq/L (3.5-5.1) 02/03/19 20:11 Chloride 105 mEq/L (98-107) 02/03/19 20:11 Carbon Dioxide 25.2 mEq/L (21.0-31.0) 02/03/19 20:11 Anion Gap 11.8 (7.0-16.0) 02/03/19 20:11 BUN 34 mg/dL (7-25) H 02/03/19 20:11 Creatinine 1.1 mg/dL (0.7-1.3) 02/03/19 20:11 Est GFR ( Amer) > 60.0 ml/min (>90) 02/03/19 20:11 Est GFR (Non-Af Amer) > 60.0 ml/min 02/03/19 20:11 BUN/Creatinine Ratio 30.9 02/03/19 20:11 Glucose 132 mg/dL (70-105) H 02/03/19 20:11 POC Glucose 144 MG/DL (70 - 105) H 02/12/19 12:00 Calcium 8.8 mg/dL (8.6-10.3) 02/03/19 20:11 Total Bilirubin 0.4 mg/dL (0.3-1.0) 02/03/19 20:11 AST 15 U/L (13-39) 02/03/19 20:11 ALT 17 U/L (7-52) 02/03/19 20:11 Alkaline Phosphatase 131 U/L (34-104) H 02/03/19 20:11 B-Natriuretic Peptide 210.0 pg/mL (5.0-100.0) H 02/03/19 20:11 Total Protein 6.4 gm/dL (6.0-8.3) 02/03/19 20:11 Albumin 3.5 gm/dL (4.2-5.5) L 02/03/19 20:11 Globulin 2.9 gm/dL 02/03/19 20:11 Albumin/Globulin Ratio 1.2 (1.0-1.8) 02/03/19 20:11 Triglycerides 110 mg/dL (<150) 02/03/19 20:11 Cholesterol 94 mg/dL (<200) 02/03/19 20:11 LDL Cholesterol Direct 47 mg/dL (75-193) L 02/03/19 20:11 HDL Cholesterol 28 mg/dL (23-92) 02/03/19 20:11 TSH 0.93 uIU/ml (0.34-5.60) 02/03/19 20:11 RPR NONREACTIVE (NONREACTIVE) 02/03/19 20:11 - Physical Exam Vitals and I&O: Vital Signs Temp 97.2 F 02/12/19 06:26 Pulse 106 02/12/19 08:50 Resp 18 02/12/19 07:16 BP 139/73 02/12/19 08:50 Pulse Ox 99 02/12/19 07:16 Intake & Output 02/11/19 02/12/19 02/12/19 18:59 06:59 18:59 Intake Total 120 Balance 120 Intake: Oral 120 Other: # Voids 4 3 # Bowel Movements 0 Active Medications: Current Medications Acetaminophen (Tylenol) 650 mg PO Q6HR PRN PRN Reason: Pain (Moderate) Stop: 04/04/19 22:01 Acetaminophen (Tylenol Extra Strength) 500 mg PO Q4HR PRN PRN Reason: Pain (Mild) Stop: 04/04/19 22:01 Albuterol/Ipratropium (Duoneb Neb) 3 ml HHN Q6HRT PRN PRN Reason: Shortness of Breath Stop: 04/04/19 22:01 Last Admin: 02/08/19 07:06 Dose: 3 ml Allopurinol (Zyloprim) 100 mg PO DAILY [facility] Stop: 04/05/19 08:59 Last Admin: 02/12/19 08:47 Dose: 100 mg Aripiprazole (Abilify) 20 mg PO DAILY [facility]; Protocol Stop: 04/10/19 08:59 Last Admin: 02/12/19 08:48 Dose: 20 mg Aspirin (Aspirin Chewable) 81 mg PO DAILY [facility] Stop: 04/05/19 08:59 Last Admin: 02/12/19 08:48 Dose: 81 mg Atorvastatin Calcium (Lipitor) 60 mg PO HS [facility] Stop: 04/04/19 22:59 Last Admin: 02/11/19 20:52 Dose: 60 mg Budesonide (Pulmicort) 0.5 mg HHN BID [facility] Stop: 04/05/19 08:59 Last Admin: 02/12/19 06:30 Dose: 0.5 mg Buspirone HCl (Buspar) 15 mg PO BID [facility] Stop: 04/10/19 08:59 Last Admin: 02/12/19 08:48 Dose: 15 mg Citalopram Hydrobromide (Celexa) 40 mg PO DAILY [facility] Stop: 04/06/19 08:59 Last Admin: 02/12/19 08:48 Dose: 40 mg Dextrose (D50w) 50 ml IVP PRN PRN PRN Reason: BS below 70 & not tolerate po Stop: 04/04/19 22:26 Dextrose (Glutose 40%) 18.75 gm PO PRN PRN PRN Reason: Blood Glucose less than 70 Stop: 04/04/19 22:26 Docusate Sodium (Colace) 100 mg PO DAILY [facility] Stop: 04/06/19 08:59 Last Admin: 02/12/19 08:49 Dose: 100 mg Ferrous Sulfate (Iron) 325 mg PO DAILY [facility] Stop: 04/05/19 08:59 Last Admin: 02/12/19 08:49 Dose: 325 mg Finasteride (Proscar) 5 mg PO DAILY [facility]; Protocol Stop: 04/05/19 08:59 Last Admin: 02/12/19 08:49 Dose: 5 mg Glucagon (Glucagen) 1 mg IM PRN PRN PRN Reason: BS below 70&dextrose ineffecti Stop: 04/04/19 22:26 Insulin Human Lispro (Humalog Insulin Sliding Scale) 0 units SUBQ ACHS [facility]; Protocol Stop: 04/05/19 07:29 Last Admin: 02/12/19 06:30 Dose: Not Given Isosorbide Mononitrate (Imdur) 60 mg PO DAILY [facility] Stop: 04/06/19 08:59 Last Admin: 02/12/19 08:49 Dose: 60 mg Lorazepam (Ativan) 0.5 mg PO Q4HR PRN; Protocol PRN Reason: Anxiety Stop: 03/05/19 21:42 Last Admin: 02/07/19 09:09 Dose: 0.5 mg Magnesium Oxide (Mag-Oxide) 400 mg PO BID [facility] Stop: 04/05/19 08:59 Last Admin: 02/12/19 08:50 Dose: 400 mg Metoprolol Tartrate (Lopressor) 25 mg PO BID [facility] Stop: 04/05/19 08:59 Last Admin: 02/12/19 08:50 Dose: 25 mg Nitroglycerin (Nitrostat) 0.4 mg SL Q5MIN PRN PRN Reason: Chest Pain Pantoprazole Sodium (Protonix) 40 mg PO QDAC [facility] Stop: 04/06/19 07:29 Last Admin: 02/12/19 06:30 Dose: 40 mg Potassium Chloride (Klor-Con) 20 meq PO DAILY [facility] Stop: 04/05/19 08:59 Last Admin: 02/11/19 08:46 Dose: 20 meq Rivastigmine (Exelon 4.6 Mg/24 Hr Tdm) 1 patch TD DAILY [facility] Stop: 04/06/19 08:59 Last Admin: 02/12/19 08:50 Dose: 1 patch Tamsulosin HCl (Flomax) 0.8 mg PO HS [facility] Stop: 04/05/19 20:59 Last Admin: 02/11/19 20:52 Dose: 0.8 mg Vitamin D (Vitamin D) 400 iu PO DAILY [facility] Stop: 04/05/19 08:59 Last Admin: 02/12/19 08:51 Dose: 400 iu Zolpidem Tartrate (Ambien) 5 mg PO HS PRN PRN Reason: Insomnia Stop: 04/04/19 21:42 Physical Exam: 68 y/o male patient remains psychotic, but less depressed, still needs close monitoring. General: demented, obese, NAD HEENT: NC/AT Neck: Supple, No JVD Lungs: CTAB Cardiovascular: other (irregular - hx afib) Abdomen: soft, non-tender Extremities: clear Neurological: no change, alert Internal Medicine Assmt/Plan - Assessment Assessment: Depression. Aggressive behavior of striking staff and episodes of hitting himself. Acute psychosis. Hypertension. Diabetes. CAD. CHF. asthma. COPD. CVA. Dementia/Confusion. Anemia. Hx of TIA. Hx of Left arm fracture. Hx of BPH. Hx of Angina. - Plan Plan: Continuation of care. Monitor Vitals and Labs. Continue present meds as directed. Monitor vitals, continue B/P meds. Accu-check daily, Continue DM meds as directed. Monitor Diet/Nutritional support. Psych management per Psych. Pain Management. Safety precaution. Supportive care. Fall precaution, frequent nursing rounds, and as needed restraints to prevent fall. Continue collaborating with consulting specialists, case management and nursing team. Will Monitor patient and continue present care management. Nutritional Asmnt/Malnutr-PDOC - Dietary Evaluation Malnutrition Findings (Please click <Entered> for more info): Nutritional Asmnt/Malnutrition Start: 02/08/19 18: 36 Text: Status: Active Freq: Protocol: Document 02/08/19 18:37 [email or web address] (Rec: 02/08/19 18:45 [email or web address]) Nutritional Asmnt/Malnutrition Patient General Information Nutritional Screening Moderate Risk Diagnosis Psychosis & Bipolar Disorder Pertinent Medical Hx/Surgical Hx HTN, DM, CAD, Asthma/COPD, CVA /TIA, Dementia, Anemia bph afib Subjective Information Pt seen in dining room at time of visit. Pt is confused and is unable to answer any questions. 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 Reports tolerating diet, no chew/swallow difficulty. Per chart, PO intake 100-100- 100% for 3 meals on 02/07. Current Diet Order/ Nutrition Support CCHO, VICKI Pertinent Medications Lipitor, D50W, Glutose 40%, Colace, Iron, Glucagen, INS-SS , Mag-oxide, Lopressor Pertinent Labs 02/07 POC Glu 132, 151 02/08 POC Glu 107, 187 Nutritional Hx/Data Height 1.68 m Height (Calculated Centimeters) 167.6 Current Weight (lbs) 95.254 kg Weight (Calculated Kilograms) 95.3 Weight (Calculated Grams) 81966.4 [place] Body Weight 63.8 kg Body Mass Index (BMI) 33.9 Weight Status Obese GI Symptoms GI Symptoms None Last BM 02/06 Skin Integrity/Comment: Fredy 14, intact Current %PO Good (75-100%) Estimated Nutritional Goals BEE in Kcals: Adj wt of IBW Calories/Kcals/Kg 23-27 Kcals Calculated Protein: Adj wt of IBW Protein g/k.8-1 Protein Calculated 61-76 Fluid: ml 6529-9726 Nutritional Problem 1. Problem Problem Altered nutrition related lab values R/T medical condition AEB POC glucose 107-187 Intervention/Recommendation Comments 1.Continue with [facility], VICKI diet as ordered 2.Monitor PO intake, wt, labs and skin integrity 3.F/U as low risk in 7 days Expected Outcomes/Goals Expected Outcomes/Goals 1. PO intake to meet at least 75% of nutritional needs. 2. Wt stability, skin to remain intact, labs to approach WNL. Kelly Jacinto, MPH, RDN
--- NOTE | 2019-02-12 14:01 | Progress Notes ---
DATE: 02/12/2019 SUBJECTIVE: Chart was reviewed and the patient interviewed. Also discussed the patient's condition with the staff and reviewed records and labs. The patient seems to be slightly calmer than before and he is less irritable and less agitable. The patient also is interacting minimally with others because of his paranoia and because of depression. The patient also still has episodes of anger, but seems to be less than before. He also continued to comply with taking his medications with no side effect of medications. ASSESSMENT: The patient is less agitated, but still depressed. TREATMENT PLAN: Continue to monitor his behavior and his condition closely. Also, continue adjusting psychotropic medications and work on behavioral modifications. [facility]# [id number]
[2019-02-12] MEDS: Potassium Chloride 20 mEq ER Tab PO SCH (17:25)
[2019-02-12] MEDS: Atorvastatin Calcium 10 MG TAB PO SCH (21:11)
[2019-02-13] MEDS: INSULIN LISPRO SLIDING SCALE 100 UNITS/ML UNIT SUBQ SCH ×4 (06:34→20:24)
[2019-02-13] MEDS: Pantoprazole 40 mg/Packet PO SCH (06:47)
[2019-02-13] MEDS: Rivastigmine 4.6 mg/24 hr Tdm TD SCH (08:35)
[2019-02-13] MEDS: Ferrous Sulfate 325 MG TAB PO SCH (08:36)
[2019-02-13] MEDS: Potassium Chloride 20 mEq ER Tab PO SCH (08:37)
[2019-02-13] MEDS: Aspirin 81mg Chewable Tab PO SCH (08:38)
[2019-02-13] MEDS: Budesonide 0.5 Mg/2 mL Ud HHN SCH ×2 (08:38→18:52)
--- NOTE | 2019-02-13 09:57 | Progress Notes ---
DATE: 02/13/2019 SUBJECTIVE: The patient was seen in the dining area. The patient appears to be guarded, easily gets frustrated. Nurses report the patient had some episodes of behavioral outbursts. Otherwise, the patient appears to be in no acute distress. OBJECTIVE: VITAL SIGNS: Temperature 97.8, heart rate 76, blood pressure 144/69, respiration 20, and 99% on room air. HEENT: Head is atraumatic and normocephalic. Eyes: Bilateral conjunctivae are clear. Bilateral pupils are equally round and reactive. NECK: Supple. No JVD. CARDIOVASCULAR: S1 and S2, without murmur. PULMONARY: Clear to auscultation. GASTROINTESTINAL: Soft and nontender without guarding. Positive bowel sounds. MUSCULOSKELETAL: No clubbing. No cyanosis noted. ASSESSMENT: 1. Bipolar disorder. 2. Hypertension. 3. Diabetes. 4. Congestive heart failure. 5. Chronic obstructive pulmonary disease. 6. Anemia. 7. Benign prostatic hypertrophy. PLAN: We will keep the patient inpatient to Psychiatric Unit. We will continue to follow up with the psychiatrist to monitor the patient's condition and behavior. Treatment plans were discussed with the patient's nurse. Treatment plans were discussed with Dr. Duggan. [facility]# [id number]
[2019-02-13] MEDS: Atorvastatin Calcium 10 MG TAB PO SCH (20:45)
[2019-02-14] MEDS: INSULIN LISPRO SLIDING SCALE 100 UNITS/ML UNIT SUBQ SCH ×5 (06:40→22:05)
[2019-02-14] MEDS: Pantoprazole 40 mg/Packet PO SCH (06:42)
[2019-02-14] MEDS: Budesonide 0.5 Mg/2 mL Ud HHN SCH ×2 (08:41→18:47)
--- NOTE | 2019-02-14 08:44 | Internal Medicine Prog Note ---
Internal Medicine Subjective - Subjective Patient seen and examined:: with staff Patient is:: awake, verbal, in bed, agitated Patient Complaints of:: other (Patient was admitted for agitation and for striking staff.) Per staff patient has:: no adverse event, no episodes of fall Internal Medicine Objective - Results Result Diagrams: 02/03/19 20:11 02/03/19 20:11 Recent Labs: Laboratory Last Values WBC 9.0 Th/cmm (4.8-10.8) 02/03/19 20:11 RBC 3.84 Mil/cmm (3.80-5.80) 02/03/19 20:11 Hgb 11.6 gm/dL (12-16) L 02/03/19 20:11 Hct 34.9 % (41.0-60) L 02/03/19 20:11 MCV 90.7 fl (80-99) 02/03/19 20:11 MCH 30.3 pg (27.0-31.0) 02/03/19 20:11 MCHC Differential 33.4 pg (28.0-36.0) 02/03/19 20:11 RDW 14.2 % (11.5-20.0) 02/03/19 20:11 Plt Count 152 Th/cmm (150-400) 02/03/19 20:11 MPV 9.7 fl 02/03/19 20:11 Neutrophils % 57.3 % (40.0-80.0) 02/03/19 20:11 Lymphocytes % 30.1 % (20.0-50.0) 02/03/19 20:11 Monocytes % 8.6 % (2.0-10.0) 02/03/19 20:11 Eosinophils % 3.6 % (0.0-5.0) 02/03/19 20:11 Basophils % 0.4 % (0.0-2.0) 02/03/19 20:11 Sodium 138 mEq/L (136-145) 02/03/19 20:11 Potassium 4.0 mEq/L (3.5-5.1) 02/03/19 20:11 Chloride 105 mEq/L (98-107) 02/03/19 20:11 Carbon Dioxide 25.2 mEq/L (21.0-31.0) 02/03/19 20:11 Anion Gap 11.8 (7.0-16.0) 02/03/19 20:11 BUN 34 mg/dL (7-25) H 02/03/19 20:11 Creatinine 1.1 mg/dL (0.7-1.3) 02/03/19 20:11 Est GFR ( Amer) > 60.0 ml/min (>90) 02/03/19 20:11 Est GFR (Non-Af Amer) > 60.0 ml/min 02/03/19 20:11 BUN/Creatinine Ratio 30.9 02/03/19 20:11 Glucose 132 mg/dL (70-105) H 02/03/19 20:11 POC Glucose 100 MG/DL (70 - 105) 02/14/19 05:47 Calcium 8.8 mg/dL (8.6-10.3) 02/03/19 20:11 Total Bilirubin 0.4 mg/dL (0.3-1.0) 02/03/19 20:11 AST 15 U/L (13-39) 02/03/19 20:11 ALT 17 U/L (7-52) 02/03/19 20:11 Alkaline Phosphatase 131 U/L (34-104) H 02/03/19 20:11 B-Natriuretic Peptide 210.0 pg/mL (5.0-100.0) H 02/03/19 20:11 Total Protein 6.4 gm/dL (6.0-8.3) 02/03/19 20:11 Albumin 3.5 gm/dL (4.2-5.5) L 02/03/19 20:11 Globulin 2.9 gm/dL 02/03/19 20:11 Albumin/Globulin Ratio 1.2 (1.0-1.8) 02/03/19 20:11 Triglycerides 110 mg/dL (<150) 02/03/19 20:11 Cholesterol 94 mg/dL (<200) 02/03/19 20:11 LDL Cholesterol Direct 47 mg/dL (75-193) L 02/03/19 20:11 HDL Cholesterol 28 mg/dL (23-92) 02/03/19 20:11 TSH 0.93 uIU/ml (0.34-5.60) 02/03/19 20:11 RPR NONREACTIVE (NONREACTIVE) 02/03/19 20:11 - Physical Exam Vitals and I&O: Vital Signs Temp 98.4 F 02/13/19 20:00 Pulse 85 02/13/19 20:00 Resp 18 02/13/19 20:00 BP 110/62 02/13/19 20:00 Pulse Ox 94 02/13/19 20:00 Intake & Output 02/13/19 02/14/19 02/14/19 18:59 06:59 18:59 Intake Total 1200 Balance 1200 Intake: Oral 1200 Other: # Voids 4 # Bowel Movements 1 Active Medications: Current Medications Acetaminophen (Tylenol) 650 mg PO Q6HR PRN PRN Reason: Pain (Moderate) Stop: 04/04/19 22:01 Acetaminophen (Tylenol Extra Strength) 500 mg PO Q4HR PRN PRN Reason: Pain (Mild) Stop: 04/04/19 22:01 Albuterol/Ipratropium (Duoneb Neb) 3 ml HHN Q6HRT PRN PRN Reason: Shortness of Breath Stop: 04/04/19 22:01 Last Admin: 02/08/19 07:06 Dose: 3 ml Allopurinol (Zyloprim) 100 mg PO DAILY [facility] Stop: 04/05/19 08:59 Last Admin: 02/13/19 08:37 Dose: 100 mg Aripiprazole (Abilify) 20 mg PO DAILY [facility]; Protocol Stop: 04/10/19 08:59 Last Admin: 02/13/19 08:36 Dose: 20 mg Aspirin (Aspirin Chewable) 81 mg PO DAILY [facility] Stop: 04/05/19 08:59 Last Admin: 02/13/19 08:38 Dose: 81 mg Atorvastatin Calcium (Lipitor) 60 mg PO [facility] Stop: 04/04/19 22:59 Last Admin: 02/13/19 20:45 Dose: 60 mg Budesonide (Pulmicort) 0.5 mg HHN BID [facility] Stop: 04/05/19 08:59 Last Admin: 02/14/19 08:41 Dose: 0.5 mg Buspirone HCl (Buspar) 15 mg PO BID [facility] Stop: 04/10/19 08:59 Last Admin: 02/13/19 17:07 Dose: 15 mg Citalopram Hydrobromide (Celexa) 40 mg PO DAILY [facility] Stop: 04/06/19 08:59 Last Admin: 02/13/19 08:36 Dose: 40 mg Dextrose (D50w) 50 ml IVP PRN PRN PRN Reason: BS below 70 & not tolerate po Stop: 04/04/19 22:26 Dextrose (Glutose 40%) 18.75 gm PO PRN PRN PRN Reason: Blood Glucose less than 70 Stop: 04/04/19 22:26 Docusate Sodium (Colace) 100 mg PO DAILY [facility] Stop: 04/06/19 08:59 Last Admin: 02/13/19 08:36 Dose: 100 mg Ferrous Sulfate (Iron) 325 mg PO DAILY [facility] Stop: 04/05/19 08:59 Last Admin: 02/13/19 08:36 Dose: 325 mg Finasteride (Proscar) 5 mg PO DAILY [facility]; Protocol Stop: 04/05/19 08:59 Last Admin: 02/13/19 08:38 Dose: 5 mg Glucagon (Glucagen) 1 mg IM PRN PRN PRN Reason: BS below 70&dextrose ineffecti Stop: 04/04/19 22:26 Insulin Human Lispro (Humalog Insulin Sliding Scale) 0 units SUBQ ACHS [facility]; Protocol Stop: 04/05/19 07:29 Last Admin: 02/14/19 06:40 Dose: Not Given Isosorbide Mononitrate (Imdur) 60 mg PO DAILY [facility] Stop: 04/06/19 08:59 Last Admin: 02/13/19 08:37 Dose: 60 mg Lorazepam (Ativan) 0.5 mg PO Q4HR PRN; Protocol PRN Reason: Anxiety Stop: 03/05/19 21:42 Last Admin: 02/07/19 09:09 Dose: 0.5 mg Magnesium Oxide (Mag-Oxide) 400 mg PO BID [facility] Stop: 04/05/19 08:59 Last Admin: 02/13/19 17:07 Dose: 400 mg Metoprolol Tartrate (Lopressor) 25 mg PO BID [facility] Stop: 04/05/19 08:59 Last Admin: 02/13/19 16:38 Dose: Not Given Nitroglycerin (Nitrostat) 0.4 mg SL Q5MIN PRN PRN Reason: Chest Pain Pantoprazole Sodium (Protonix) 40 mg PO QDAC [facility] Stop: 04/06/19 07:29 Last Admin: 02/14/19 06:42 Dose: 40 mg Potassium Chloride (Klor-Con) 20 meq PO DAILY [facility] Stop: 04/05/19 08:59 Last Admin: 02/13/19 08:37 Dose: 20 meq Rivastigmine (Exelon 4.6 Mg/24 Hr Tdm) 1 patch TD DAILY [facility] Stop: 04/06/19 08:59 Last Admin: 02/13/19 08:35 Dose: 1 patch Tamsulosin HCl (Flomax) 0.8 mg PO HS [facility] Stop: 04/05/19 20:59 Last Admin: 02/13/19 20:45 Dose: 0.8 mg Vitamin D (Vitamin D) 400 iu PO DAILY [facility] Stop: 04/05/19 08:59 Last Admin: 02/13/19 08:38 Dose: 400 iu Zolpidem Tartrate (Ambien) 5 mg PO HS PRN PRN Reason: Insomnia Stop: 04/04/19 21:42 General: demented, obese, NAD HEENT: NC/AT Neck: Supple, No JVD Lungs: CTAB Cardiovascular: other (hx afib) Abdomen: soft, non-tender Extremities: clear Neurological: no change, alert Internal Medicine Assmt/Plan - Assessment Assessment: Depression. Aggressive behavior of striking staff and episodes of hitting himself. Acute psychosis. Hypertension. Diabetes. CAD. CHF. asthma. COPD. CVA. Dementia/Confusion. Anemia. Hx of TIA. Hx of Left arm fracture. Hx of BPH. Hx of Angina. - Plan Plan: Continue plan of care. Monitor Vitals and behavior. Continue inpatient psych Safety precaution. Supportive care. Fall precaution, frequent nursing rounds, and as needed restraints to prevent fall. Continue collaborating with consulting specialists, case management and nursing team. Will Monitor patient and continue current treatment plan as ordered. Nutritional Asmnt/Malnutr-PDOC - Dietary Evaluation Malnutrition Findings (Please click <Entered> for more info): Nutritional Asmnt/Malnutrition Start: 02/08/19 18: 36 Text: Status: Active Freq: Protocol: Document 02/08/19 18:37 [email or web address] (Rec: 02/08/19 18:45 [email or web address]) Nutritional Asmnt/Malnutrition Patient General Information Nutritional Screening Moderate Risk Diagnosis Psychosis & Bipolar Disorder Pertinent Medical Hx/Surgical Hx HTN, DM, CAD, Asthma/COPD, CVA /TIA, Dementia, Anemia bph afib Subjective Information Pt seen in dining room at time of visit. Pt is confused and is unable to answer any questions. 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 Reports tolerating diet, no chew/swallow difficulty. Per chart, PO intake 100-100- 100% for 3 meals on 02/07. Current Diet Order/ Nutrition Support [facility], VICKI Pertinent Medications Lipitor, D50W, Glutose 40%, Colace, Iron, Glucagen, INS-SS , Mag-oxide, Lopressor Pertinent Labs 02/07 POC Glu 132, 151 02/08 POC Glu 107, 187 Nutritional Hx/Data Height 5 ft 6 in Height (Calculated Centimeters) 167.6 Current Weight (lbs) 210 lb Weight (Calculated Kilograms) 95.3 Weight (Calculated Grams) 40928.4 [place] Body Weight 63.8 kg Body Mass Index (BMI) 33.9 Weight Status Obese GI Symptoms GI Symptoms None Last BM 02/06 Skin Integrity/Comment: Fredy 14, intact Current %PO Good (75-100%) Estimated Nutritional Goals BEE in Kcals: Adj wt of IBW Calories/Kcals/Kg 23-27 Kcals Calculated 6921-8422 Protein: Adj wt of IBW Protein g/k.8-1 Protein Calculated 61-76 Fluid: ml 9868-8578 Nutritional Problem 1. Problem Problem Altered nutrition related lab values R/T medical condition AEB POC glucose 107-187 Intervention/Recommendation Comments 1.Continue with [facility], [facility] diet as ordered 2.Monitor PO intake, wt, labs and skin integrity 3.F/U as low risk in 7 days Expected Outcomes/Goals Expected Outcomes/Goals 1. PO intake to meet at least 75% of nutritional needs. 2. Wt stability, skin to remain intact, labs to approach WNL. Kelly Jacinto, MPH, RDN
[2019-02-14] MEDS: Aspirin 81mg Chewable Tab PO SCH (09:35)
[2019-02-14] MEDS: Potassium Chloride 20 mEq ER Tab PO SCH (09:36)
[2019-02-14] MEDS: Ferrous Sulfate 325 MG TAB PO SCH (09:40)
[2019-02-14] MEDS: Rivastigmine 4.6 mg/24 hr Tdm TD SCH (09:43)
--- NOTE | 2019-02-14 12:25 | Progress Notes ---
DATE: 02/13/2019 SUBJECTIVE: The patient was seen and evaluated. The patient's chart reviewed. COVERING FOR: Dr. Dallas. IDENTIFYING DATA: A 68-year-old male brought in here after the patient was transferred from [facility], increasingly getting agitated and aggressive towards the staff He has a history of schizophrenia. MEDICATION RECONCILIATION: Currently on Abilify 20 mg, Celexa 40 mg. Today on [id number] evaluation, the patient presented withdrawn, disengaged, minimally interactive, avoidant in minimizing symptoms. MENTAL STATUS EXAMINATION: Less agitated, but still depressed, withdrawn, disengaged, overwhelmed. ASSESSMENT AND PLAN: The patient continues to demonstrate symptoms of depression, isolated, melancholic, needs a lot of redirection to continue engaging his ADLs. [facility]# [id number]
[2019-02-14] MEDS: Atorvastatin Calcium 10 MG TAB PO SCH (20:22)
--- NOTE | 2019-02-15 03:14 | Progress Notes ---
DATE: 02/14/2019 I am covering for Dr. Dallas. The patient was seen and evaluated. SUBJECTIVE: Today on [id number] evaluation the patient reported no complication with regards to the bipolar medication. He reports he is sleeping well. MENTAL STATUS EXAMINATION: Isolated, withdrawn, disengaged, minimally interactive and at times needs a lot of encouragement. ASSESSMENT AND PLAN: A 68-year-old male with a history of bipolar. He tolerated the current medication regimen. Due to the patient's ongoing isolated, distressed, poor emotions continued to impair, the patient is unable to form a safe plan. PLAN: We will continue primary psychiatric treatment plan and goals. JOB# [id number]
[2019-02-15] MEDS: INSULIN LISPRO SLIDING SCALE 100 UNITS/ML UNIT SUBQ SCH ×4 (06:31→21:36)
[2019-02-15] MEDS: Pantoprazole 40 mg/Packet PO SCH (06:31)
[2019-02-15] MEDS: Budesonide 0.5 Mg/2 mL Ud HHN SCH ×2 (07:32→19:07)
[2019-02-15] MEDS: Rivastigmine 4.6 mg/24 hr Tdm TD SCH (08:50)
[2019-02-15] MEDS: Ferrous Sulfate 325 MG TAB PO SCH (08:51)
[2019-02-15] MEDS: Aspirin 81mg Chewable Tab PO SCH (08:51)
[2019-02-15] MEDS: Potassium Chloride 20 mEq ER Tab PO SCH (08:51)
--- NOTE | 2019-02-15 10:56 | Internal Medicine Prog Note ---
Internal Medicine Subjective - Subjective Service Date: 02/15/19 Patient seen and examined:: with staff Patient is:: awake, verbal, in bed, agitated Patient Complaints of:: other (Patient was admitted for agitation and for striking staff.) Per staff patient has:: no adverse event, no episodes of fall Internal Medicine Objective - Results Result Diagrams: 02/03/19 20:11 02/03/19 20:11 Recent Labs: Laboratory Last Values WBC 9.0 Th/cmm (4.8-10.8) 02/03/19 20:11 RBC 3.84 Mil/cmm (3.80-5.80) 02/03/19 20:11 Hgb 11.6 gm/dL (12-16) L 02/03/19 20:11 Hct 34.9 % (41.0-60) L 02/03/19 20:11 MCV 90.7 fl (80-99) 02/03/19 20:11 MCH 30.3 pg (27.0-31.0) 02/03/19 20:11 MCHC Differential 33.4 pg (28.0-36.0) 02/03/19 20:11 RDW 14.2 % (11.5-20.0) 02/03/19 20:11 Plt Count 152 Th/cmm (150-400) 02/03/19 20:11 MPV 9.7 fl 02/03/19 20:11 Neutrophils % 57.3 % (40.0-80.0) 02/03/19 20:11 Lymphocytes % 30.1 % (20.0-50.0) 02/03/19 20:11 Monocytes % 8.6 % (2.0-10.0) 02/03/19 20:11 Eosinophils % 3.6 % (0.0-5.0) 02/03/19 20:11 Basophils % 0.4 % (0.0-2.0) 02/03/19 20:11 Sodium 138 mEq/L (136-145) 02/03/19 20:11 Potassium 4.0 mEq/L (3.5-5.1) 02/03/19 20:11 Chloride 105 mEq/L (98-107) 02/03/19 20:11 Carbon Dioxide 25.2 mEq/L (21.0-31.0) 02/03/19 20:11 Anion Gap 11.8 (7.0-16.0) 02/03/19 20:11 BUN 34 mg/dL (7-25) H 02/03/19 20:11 Creatinine 1.1 mg/dL (0.7-1.3) 02/03/19 20:11 Est GFR ( Amer) > 60.0 ml/min (>90) 02/03/19 20:11 Est GFR (Non-Af Amer) > 60.0 ml/min 02/03/19 20:11 BUN/Creatinine Ratio 30.9 02/03/19 20:11 Glucose 132 mg/dL (70-105) H 02/03/19 20:11 POC Glucose 99 MG/DL (70 - 105) 02/15/19 06:02 Calcium 8.8 mg/dL (8.6-10.3) 02/03/19 20:11 Total Bilirubin 0.4 mg/dL (0.3-1.0) 02/03/19 20:11 AST 15 U/L (13-39) 02/03/19 20:11 ALT 17 U/L (7-52) 02/03/19 20:11 Alkaline Phosphatase 131 U/L (34-104) H 02/03/19 20:11 B-Natriuretic Peptide 210.0 pg/mL (5.0-100.0) H 02/03/19 20:11 Total Protein 6.4 gm/dL (6.0-8.3) 02/03/19 20:11 Albumin 3.5 gm/dL (4.2-5.5) L 02/03/19 20:11 Globulin 2.9 gm/dL 02/03/19 20:11 Albumin/Globulin Ratio 1.2 (1.0-1.8) 02/03/19 20:11 Triglycerides 110 mg/dL (<150) 02/03/19 20:11 Cholesterol 94 mg/dL (<200) 02/03/19 20:11 LDL Cholesterol Direct 47 mg/dL (75-193) L 02/03/19 20:11 HDL Cholesterol 28 mg/dL (23-92) 02/03/19 20:11 TSH 0.93 uIU/ml (0.34-5.60) 02/03/19 20:11 RPR NONREACTIVE (NONREACTIVE) 02/03/19 20:11 - Physical Exam Vitals and I&O: Vital Signs Temp 97.8 F 02/15/19 06:15 Pulse 85 02/15/19 08:51 Resp 18 02/15/19 07:35 BP 106/63 02/15/19 08:51 Pulse Ox 93 02/15/19 07:35 Intake & Output 02/14/19 02/15/19 02/15/19 18:59 06:59 18:59 Intake Total 1150 240 Output Total 1 Balance 1150 239 Weight (lbs) 95.254 kg Intake: Oral 1150 240 Output: Urine/Stool Mix 1 Other: # Voids 3 # Bowel Movements 1 0 Weight Source Bedscale Active Medications: Current Medications Acetaminophen (Tylenol) 650 mg PO Q6HR PRN PRN Reason: Pain (Moderate) Stop: 04/04/19 22:01 Acetaminophen (Tylenol Extra Strength) 500 mg PO Q4HR PRN PRN Reason: Pain (Mild) Stop: 04/04/19 22:01 Albuterol/Ipratropium (Duoneb Neb) 3 ml HHN Q6HRT PRN PRN Reason: Shortness of Breath Stop: 04/04/19 22:01 Last Admin: 02/08/19 07:06 Dose: 3 ml Allopurinol (Zyloprim) 100 mg PO DAILY [facility] Stop: 04/05/19 08:59 Last Admin: 02/15/19 08:52 Dose: 100 mg Aripiprazole (Abilify) 20 mg PO DAILY [facility]; Protocol Stop: 04/10/19 08:59 Last Admin: 02/15/19 08:50 Dose: 20 mg Aspirin (Aspirin Chewable) 81 mg PO DAILY [facility] Stop: 04/05/19 08:59 Last Admin: 02/15/19 08:51 Dose: 81 mg Atorvastatin Calcium (Lipitor) 60 mg PO HS [facility] Stop: 04/04/19 22:59 Last Admin: 02/14/19 20:22 Dose: 60 mg Budesonide (Pulmicort) 0.5 mg HHN BID [facility] Stop: 04/05/19 08:59 Last Admin: 02/15/19 07:32 Dose: 0.5 mg Buspirone HCl (Buspar) 15 mg PO BID [facility] Stop: 04/10/19 08:59 Last Admin: 02/15/19 08:51 Dose: 15 mg Citalopram Hydrobromide (Celexa) 40 mg PO DAILY [facility] Stop: 04/06/19 08:59 Last Admin: 02/15/19 08:49 Dose: 40 mg Dextrose (D50w) 50 ml IVP PRN PRN PRN Reason: BS below 70 & not tolerate po Stop: 04/04/19 22:26 Dextrose (Glutose 40%) 18.75 gm PO PRN PRN PRN Reason: Blood Glucose less than 70 Stop: 04/04/19 22:26 Docusate Sodium (Colace) 100 mg PO DAILY [facility] Stop: 04/06/19 08:59 Last Admin: 02/15/19 08:51 Dose: 100 mg Ferrous Sulfate (Iron) 325 mg PO DAILY [facility] Stop: 04/05/19 08:59 Last Admin: 02/15/19 08:51 Dose: 325 mg Finasteride (Proscar) 5 mg PO DAILY [facility]; Protocol Stop: 04/05/19 08:59 Last Admin: 02/15/19 08:50 Dose: 5 mg Glucagon (Glucagen) 1 mg IM PRN PRN PRN Reason: BS below 70&dextrose ineffecti Stop: 04/04/19 22:26 Insulin Human Lispro (Humalog Insulin Sliding Scale) 0 units SUBQ ACHS [facility]; Protocol Stop: 04/05/19 07:29 Last Admin: 02/15/19 06:31 Dose: Not Given Isosorbide Mononitrate (Imdur) 60 mg PO DAILY [facility] Stop: 04/06/19 08:59 Last Admin: 02/15/19 08:50 Dose: 60 mg Lorazepam (Ativan) 0.5 mg PO Q4HR PRN; Protocol PRN Reason: Anxiety Stop: 03/05/19 21:42 Last Admin: 02/15/19 08:52 Dose: 0.5 mg Magnesium Oxide (Mag-Oxide) 400 mg PO BID [facility] Stop: 04/05/19 08:59 Last Admin: 02/15/19 08:50 Dose: 400 mg Metoprolol Tartrate (Lopressor) 25 mg PO BID [facility] Stop: 04/05/19 08:59 Last Admin: 02/15/19 08:51 Dose: 25 mg Nitroglycerin (Nitrostat) 0.4 mg SL Q5MIN PRN PRN Reason: Chest Pain Pantoprazole Sodium (Protonix) 40 mg PO QDAC [facility] Stop: 04/06/19 07:29 Last Admin: 02/15/19 06:31 Dose: 40 mg Potassium Chloride (Klor-Con) 20 meq PO DAILY [facility] Stop: 04/05/19 08:59 Last Admin: 02/15/19 08:51 Dose: 20 meq Rivastigmine (Exelon 4.6 Mg/24 Hr Tdm) 1 patch TD DAILY [facility] Stop: 04/06/19 08:59 Last Admin: 02/15/19 08:50 Dose: 1 patch Tamsulosin HCl (Flomax) 0.8 mg PO HS [facility] Stop: 04/05/19 20:59 Last Admin: 02/14/19 20:22 Dose: 0.8 mg Vitamin D (Vitamin D) 400 iu PO DAILY [facility] Stop: 04/05/19 08:59 Last Admin: 02/15/19 08:51 Dose: 400 iu Zolpidem Tartrate (Ambien) 5 mg PO HS PRN PRN Reason: Insomnia Stop: 04/04/19 21:42 Last Admin: 02/14/19 20:23 Dose: 5 mg Physical Exam: 68 y/o male patient remains psychotic, less depressed, sleeping better, still needs close monitoring. General: demented, obese, NAD HEENT: NC/AT Neck: Supple, No JVD Lungs: CTAB Cardiovascular: other (hx afib) Abdomen: soft, non-tender Extremities: clear Neurological: no change, alert Internal Medicine Assmt/Plan - Assessment Assessment: Depression. Aggressive behavior of striking staff and episodes of hitting himself. Acute psychosis. Hypertension. Diabetes. CAD. CHF. asthma. COPD. CVA. Dementia/Confusion. Anemia. Hx of TIA. Hx of Left arm fracture. Hx of BPH. Hx of Angina. - Plan Plan: Continuation of care. Monitor Vitals and Labs. Continue present meds as directed. Monitor vitals, continue B/P meds. Accu-check daily, Continue DM meds as directed. Monitor Diet/Nutritional support. Psych management per Psych. Pain Management. Safety precaution. Supportive care. Fall precaution, frequent nursing rounds, and as needed restraints to prevent fall. Continue collaborating with consulting specialists, case management and nursing team. Will Monitor patient and continue present care management. Nutritional Asmnt/Malnutr-PDOC - Dietary Evaluation Malnutrition Findings (Please click <Entered> for more info): Nutritional Asmnt/Malnutrition Start: 02/08/19 18: 36 Text: Status: Active Freq: Protocol: Document 02/08/19 18:37 [email or web address].[email or web address] (Rec: 02/08/19 18:45 [email or web address]) Nutritional Asmnt/Malnutrition Patient General Information Nutritional Screening Moderate Risk Diagnosis Psychosis & Bipolar Disorder Pertinent Medical Hx/Surgical Hx HTN, DM, CAD, Asthma/COPD, CVA /TIA, Dementia, Anemia bph afib Subjective Information Pt seen in dining room at time of visit. Pt is confused and is unable to answer any questions. 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 Reports tolerating diet, no chew/swallow difficulty. Per chart, PO intake 100-100- 100% for 3 meals on 02/07. Current Diet Order/ Nutrition Support [facility], VICKI Pertinent Medications Lipitor, D50W, Glutose 40%, Colace, Iron, Glucagen, INS-SS , Mag-oxide, Lopressor Pertinent Labs 02/07 POC Glu 132, 151 02/08 POC Glu 107, 187 Nutritional Hx/Data Height 1.68 m Height (Calculated Centimeters) 167.6 Current Weight (lbs) 95.254 kg Weight (Calculated Kilograms) 95.3 Weight (Calculated Grams) 63039.4 [place] Body Weight 63.8 kg Body Mass Index (BMI) 33.9 Weight Status Obese GI Symptoms GI Symptoms None Last BM 02/06 Skin Integrity/Comment: Fredy 14, intact Current %PO Good (75-100%) Estimated Nutritional Goals BEE in Kcals: Adj wt of IBW Calories/Kcals/Kg 23-27 Kcals Calculated 4539-4551 Protein: Adj wt of IBW Protein g/k.8-1 Protein Calculated 61-76 Fluid: ml 4877-8850 Nutritional Problem 1. Problem Problem Altered nutrition related lab values R/T medical condition AEB POC glucose 107-187 Intervention/Recommendation Comments 1.Continue with [facility], VICKI diet as ordered 2.Monitor PO intake, wt, labs and skin integrity 3.F/U as low risk in 7 days Expected Outcomes/Goals Expected Outcomes/Goals 1. PO intake to meet at least 75% of nutritional needs. 2. Wt stability, skin to remain intact, labs to approach WNL. Kelly Jacinto, MPH, RDN
--- NOTE | 2019-02-15 10:58 | Internal Medicine Prog Note ---
Internal Medicine Subjective - Subjective Service Date: 02/15/19 Patient is:: awake, verbal, in bed, agitated Patient Complaints of:: other (Patient was admitted for agitation and for striking staff.) Per staff patient has:: no adverse event, no episodes of fall Internal Medicine Objective - Results Result Diagrams: 02/03/19 20:11 02/03/19 20:11 Recent Labs: Laboratory Last Values WBC 9.0 Th/cmm (4.8-10.8) 02/03/19 20:11 RBC 3.84 Mil/cmm (3.80-5.80) 02/03/19 20:11 Hgb 11.6 gm/dL (12-16) L 02/03/19 20:11 Hct 34.9 % (41.0-60) L 02/03/19 20:11 MCV 90.7 fl (80-99) 02/03/19 20:11 MCH 30.3 pg (27.0-31.0) 02/03/19 20:11 MCHC Differential 33.4 pg (28.0-36.0) 02/03/19 20:11 RDW 14.2 % (11.5-20.0) 02/03/19 20:11 Plt Count 152 Th/cmm (150-400) 02/03/19 20:11 MPV 9.7 fl 02/03/19 20:11 Neutrophils % 57.3 % (40.0-80.0) 02/03/19 20:11 Lymphocytes % 30.1 % (20.0-50.0) 02/03/19 20:11 Monocytes % 8.6 % (2.0-10.0) 02/03/19 20:11 Eosinophils % 3.6 % (0.0-5.0) 02/03/19 20:11 Basophils % 0.4 % (0.0-2.0) 02/03/19 20:11 Sodium 138 mEq/L (136-145) 02/03/19 20:11 Potassium 4.0 mEq/L (3.5-5.1) 02/03/19 20:11 Chloride 105 mEq/L (98-107) 02/03/19 20:11 Carbon Dioxide 25.2 mEq/L (21.0-31.0) 02/03/19 20:11 Anion Gap 11.8 (7.0-16.0) 02/03/19 20:11 BUN 34 mg/dL (7-25) H 02/03/19 20:11 Creatinine 1.1 mg/dL (0.7-1.3) 02/03/19 20:11 Est GFR ( Amer) > 60.0 ml/min (>90) 02/03/19 20:11 Est GFR (Non-Af Amer) > 60.0 ml/min 02/03/19 20:11 BUN/Creatinine Ratio 30.9 02/03/19 20:11 Glucose 132 mg/dL (70-105) H 02/03/19 20:11 POC Glucose 99 MG/DL (70 - 105) 02/15/19 06:02 Calcium 8.8 mg/dL (8.6-10.3) 02/03/19 20:11 Total Bilirubin 0.4 mg/dL (0.3-1.0) 02/03/19 20:11 AST 15 U/L (13-39) 02/03/19 20:11 ALT 17 U/L (7-52) 02/03/19 20:11 Alkaline Phosphatase 131 U/L (34-104) H 02/03/19 20:11 B-Natriuretic Peptide 210.0 pg/mL (5.0-100.0) H 02/03/19 20:11 Total Protein 6.4 gm/dL (6.0-8.3) 02/03/19 20:11 Albumin 3.5 gm/dL (4.2-5.5) L 02/03/19 20:11 Globulin 2.9 gm/dL 02/03/19 20:11 Albumin/Globulin Ratio 1.2 (1.0-1.8) 02/03/19 20:11 Triglycerides 110 mg/dL (<150) 02/03/19 20:11 Cholesterol 94 mg/dL (<200) 02/03/19 20:11 LDL Cholesterol Direct 47 mg/dL (75-193) L 02/03/19 20:11 HDL Cholesterol 28 mg/dL (23-92) 02/03/19 20:11 TSH 0.93 uIU/ml (0.34-5.60) 02/03/19 20:11 RPR NONREACTIVE (NONREACTIVE) 02/03/19 20:11 - Physical Exam Vitals and I&O: Vital Signs Temp 97.8 F 02/15/19 06:15 Pulse 85 02/15/19 08:51 Resp 18 02/15/19 07:35 BP 106/63 02/15/19 08:51 Pulse Ox 93 02/15/19 07:35 Intake & Output 02/14/19 02/15/19 02/15/19 18:59 06:59 18:59 Intake Total 1150 240 Output Total 1 Balance 1150 239 Weight (lbs) 95.254 kg Intake: Oral 1150 240 Output: Urine/Stool Mix 1 Other: # Voids 3 # Bowel Movements 1 0 Weight Source Bedscale Active Medications: Current Medications Acetaminophen (Tylenol) 650 mg PO Q6HR PRN PRN Reason: Pain (Moderate) Stop: 04/04/19 22:01 Acetaminophen (Tylenol Extra Strength) 500 mg PO Q4HR PRN PRN Reason: Pain (Mild) Stop: 04/04/19 22:01 Albuterol/Ipratropium (Duoneb Neb) 3 ml HHN Q6HRT PRN PRN Reason: Shortness of Breath Stop: 04/04/19 22:01 Last Admin: 02/08/19 07:06 Dose: 3 ml Allopurinol (Zyloprim) 100 mg PO DAILY [facility] Stop: 04/05/19 08:59 Last Admin: 02/15/19 08:52 Dose: 100 mg Aripiprazole (Abilify) 20 mg PO DAILY [facility]; Protocol Stop: 04/10/19 08:59 Last Admin: 02/15/19 08:50 Dose: 20 mg Aspirin (Aspirin Chewable) 81 mg PO DAILY [facility] Stop: 04/05/19 08:59 Last Admin: 02/15/19 08:51 Dose: 81 mg Atorvastatin Calcium (Lipitor) 60 mg PO HS [facility] Stop: 04/04/19 22:59 Last Admin: 02/14/19 20:22 Dose: 60 mg Budesonide (Pulmicort) 0.5 mg HHN BID [facility] Stop: 04/05/19 08:59 Last Admin: 02/15/19 07:32 Dose: 0.5 mg Buspirone HCl (Buspar) 15 mg PO BID [facility] Stop: 04/10/19 08:59 Last Admin: 02/15/19 08:51 Dose: 15 mg Citalopram Hydrobromide (Celexa) 40 mg PO DAILY [facility] Stop: 04/06/19 08:59 Last Admin: 02/15/19 08:49 Dose: 40 mg Dextrose (D50w) 50 ml IVP PRN PRN PRN Reason: BS below 70 & not tolerate po Stop: 04/04/19 22:26 Dextrose (Glutose 40%) 18.75 gm PO PRN PRN PRN Reason: Blood Glucose less than 70 Stop: 04/04/19 22:26 Docusate Sodium (Colace) 100 mg PO DAILY [facility] Stop: 04/06/19 08:59 Last Admin: 02/15/19 08:51 Dose: 100 mg Ferrous Sulfate (Iron) 325 mg PO DAILY [facility] Stop: 04/05/19 08:59 Last Admin: 02/15/19 08:51 Dose: 325 mg Finasteride (Proscar) 5 mg PO DAILY [facility]; Protocol Stop: 04/05/19 08:59 Last Admin: 02/15/19 08:50 Dose: 5 mg Glucagon (Glucagen) 1 mg IM PRN PRN PRN Reason: BS below 70&dextrose ineffecti Stop: 04/04/19 22:26 Insulin Human Lispro (Humalog Insulin Sliding Scale) 0 units SUBQ ACHS [facility]; Protocol Stop: 04/05/19 07:29 Last Admin: 02/15/19 06:31 Dose: Not Given Isosorbide Mononitrate (Imdur) 60 mg PO DAILY [facility] Stop: 04/06/19 08:59 Last Admin: 02/15/19 08:50 Dose: 60 mg Lorazepam (Ativan) 0.5 mg PO Q4HR PRN; Protocol PRN Reason: Anxiety Stop: 03/05/19 21:42 Last Admin: 02/15/19 08:52 Dose: 0.5 mg Magnesium Oxide (Mag-Oxide) 400 mg PO BID [facility] Stop: 04/05/19 08:59 Last Admin: 02/15/19 08:50 Dose: 400 mg Metoprolol Tartrate (Lopressor) 25 mg PO BID [facility] Stop: 04/05/19 08:59 Last Admin: 02/15/19 08:51 Dose: 25 mg Nitroglycerin (Nitrostat) 0.4 mg SL Q5MIN PRN PRN Reason: Chest Pain Pantoprazole Sodium (Protonix) 40 mg PO QDAC [facility] Stop: 04/06/19 07:29 Last Admin: 02/15/19 06:31 Dose: 40 mg Potassium Chloride (Klor-Con) 20 meq PO DAILY [facility] Stop: 04/05/19 08:59 Last Admin: 02/15/19 08:51 Dose: 20 meq Rivastigmine (Exelon 4.6 Mg/24 Hr Tdm) 1 patch TD DAILY [facility] Stop: 04/06/19 08:59 Last Admin: 02/15/19 08:50 Dose: 1 patch Tamsulosin HCl (Flomax) 0.8 mg PO HS [facility] Stop: 04/05/19 20:59 Last Admin: 02/14/19 20:22 Dose: 0.8 mg Vitamin D (Vitamin D) 400 iu PO DAILY [facility] Stop: 04/05/19 08:59 Last Admin: 02/15/19 08:51 Dose: 400 iu Zolpidem Tartrate (Ambien) 5 mg PO HS PRN PRN Reason: Insomnia Stop: 04/04/19 21:42 Last Admin: 02/14/19 20:23 Dose: 5 mg Physical Exam: 68 y/o male patient remains psychotic, less depressed, sleeping better, still needs close monitoring. General: demented, obese, NAD HEENT: NC/AT Neck: Supple, No JVD Lungs: CTAB Cardiovascular: other (hx afib) Abdomen: soft, non-tender Extremities: clear Neurological: no change, alert Internal Medicine Assmt/Plan - Assessment Assessment: Depression. Aggressive behavior of striking staff and episodes of hitting himself. Acute psychosis. Hypertension. Diabetes. CAD. CHF. asthma. COPD. CVA. Dementia/Confusion. Anemia. Hx of TIA. Hx of Left arm fracture. Hx of BPH. Hx of Angina. - Plan Plan: Continuation of care. Monitor Vitals and Labs. Continue present meds as directed. Monitor vitals, continue B/P meds. Accu-check daily, Continue DM meds as directed. Monitor Diet/Nutritional support. Psych management per Psych. Pain Management. Safety precaution. Supportive care. Fall precaution, frequent nursing rounds, and as needed restraints to prevent fall. Continue collaborating with consulting specialists, case management and nursing team. Will Monitor patient and continue present care management. Nutritional Asmnt/Malnutr-PDOC - Dietary Evaluation Malnutrition Findings (Please click <Entered> for more info): Nutritional Asmnt/Malnutrition Start: 02/08/19 18: 36 Text: Status: Active Freq: Protocol: Document 02/08/19 18:37 [email or web address] (Rec: 02/08/19 18:45 [email or web address]) Nutritional Asmnt/Malnutrition Patient General Information Nutritional Screening Moderate Risk Diagnosis Psychosis & Bipolar Disorder Pertinent Medical Hx/Surgical Hx HTN, DM, CAD, Asthma/COPD, CVA /TIA, Dementia, Anemia bph afib Subjective Information Pt seen in dining room at time of visit. Pt is confused and is unable to answer any questions. 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 Reports tolerating diet, no chew/swallow difficulty. Per chart, PO intake 100-100- 100% for 3 meals on 02/07. Current Diet Order/ Nutrition Support CCHO, VICKI Pertinent Medications Lipitor, D50W, Glutose 40%, Colace, Iron, Glucagen, INS-SS , Mag-oxide, Lopressor Pertinent Labs 02/07 POC Glu 132, 151 02/08 POC Glu 107, 187 Nutritional Hx/Data Height 1.68 m Height (Calculated Centimeters) 167.6 Current Weight (lbs) 95.254 kg Weight (Calculated Kilograms) 95.3 Weight (Calculated Grams) 16969.4 [place] Body Weight 63.8 kg Body Mass Index (BMI) 33.9 Weight Status Obese GI Symptoms GI Symptoms None Last BM 02/06 Skin Integrity/Comment: Fredy 14, intact Current %PO Good (75-100%) Estimated Nutritional Goals BEE in Kcals: Adj wt of IBW Calories/Kcals/Kg 23-27 Kcals Calculated Protein: Adj wt of IBW Protein g/k.8-1 Protein Calculated 61-76 Fluid: ml 5924-5465 Nutritional Problem 1. Problem Problem Altered nutrition related lab values R/T medical condition AEB POC glucose 107-187 Intervention/Recommendation Comments 1.Continue with CCHO, VICKI diet as ordered 2.Monitor PO intake, wt, labs and skin integrity 3.F/U as low risk in 7 days Expected Outcomes/Goals Expected Outcomes/Goals 1. PO intake to meet at least 75% of nutritional needs. 2. Wt stability, skin to remain intact, labs to approach WNL. Kelly Jacinto, MPH, RDN
--- NOTE | 2019-02-15 17:07 | Progress Notes ---
DATE: 02/15/[address] [place]. Case was discussed with staff of the patient, reviewed records. The patient is a 68-year-old male who was admitted on 02/03/2019 because of agitated behavior, striking at staff, confused, hitting himself, came from [facility]. He has been increasingly agitated and aggressive with the staff with episodes of ____, unable to make safe plan for self-care, unpredictable and impulsive. He continues to be at times selectively mute, continues to be unable to make safe plan for self-care or participate in a meaningful conversation. He is on Abilify 20 mg a day, Celexa 40 mg daily. Continues to be aggressive, irritable. No side effects with the medication, no sedation, no nausea, no extrapyramidal symptoms. We will continue the patient in group therapy, milieu therapy, and adjust medication as needed. JOB# [id number]
[2019-02-15] MEDS: Atorvastatin Calcium 10 MG TAB PO SCH (21:05)
[2019-02-16] MEDS: Pantoprazole 40 mg/Packet PO SCH (06:55)
[2019-02-16] MEDS: INSULIN LISPRO SLIDING SCALE 100 UNITS/ML UNIT SUBQ SCH ×4 (06:55→21:13)
[2019-02-16] MEDS: Budesonide 0.5 Mg/2 mL Ud HHN SCH ×2 (08:48→18:54)
[2019-02-16] MEDS: Rivastigmine 4.6 mg/24 hr Tdm TD SCH (09:19)
[2019-02-16] MEDS: Potassium Chloride 20 mEq ER Tab PO SCH (09:21)
[2019-02-16] MEDS: Ferrous Sulfate 325 MG TAB PO SCH (09:21)
[2019-02-16] MEDS: Aspirin 81mg Chewable Tab PO SCH (09:21)
--- NOTE | 2019-02-16 18:47 | Internal Medicine Prog Note ---
Internal Medicine Subjective - Subjective Service Date: 02/16/19 Patient is:: awake, verbal, in bed, agitated Patient Complaints of:: other (Patient was admitted for agitation and for striking staff.) Per staff patient has:: no adverse event, no episodes of fall Internal Medicine Objective - Results Result Diagrams: 02/03/19 20:11 02/03/19 20:11 Recent Labs: Laboratory Last Values WBC 9.0 Th/cmm (4.8-10.8) 02/03/19 20:11 RBC 3.84 Mil/cmm (3.80-5.80) 02/03/19 20:11 Hgb 11.6 gm/dL (12-16) L 02/03/19 20:11 Hct 34.9 % (41.0-60) L 02/03/19 20:11 MCV 90.7 fl (80-99) 02/03/19 20:11 MCH 30.3 pg (27.0-31.0) 02/03/19 20:11 MCHC Differential 33.4 pg (28.0-36.0) 02/03/19 20:11 RDW 14.2 % (11.5-20.0) 02/03/19 20:11 Plt Count 152 Th/cmm (150-400) 02/03/19 20:11 MPV 9.7 fl 02/03/19 20:11 Neutrophils % 57.3 % (40.0-80.0) 02/03/19 20:11 Lymphocytes % 30.1 % (20.0-50.0) 02/03/19 20:11 Monocytes % 8.6 % (2.0-10.0) 02/03/19 20:11 Eosinophils % 3.6 % (0.0-5.0) 02/03/19 20:11 Basophils % 0.4 % (0.0-2.0) 02/03/19 20:11 Sodium 138 mEq/L (136-145) 02/03/19 20:11 Potassium 4.0 mEq/L (3.5-5.1) 02/03/19 20:11 Chloride 105 mEq/L (98-107) 02/03/19 20:11 Carbon Dioxide 25.2 mEq/L (21.0-31.0) 02/03/19 20:11 Anion Gap 11.8 (7.0-16.0) 02/03/19 20:11 BUN 34 mg/dL (7-25) H 02/03/19 20:11 Creatinine 1.1 mg/dL (0.7-1.3) 02/03/19 20:11 Est GFR ( Amer) > 60.0 ml/min (>90) 02/03/19 20:11 Est GFR (Non-Af Amer) > 60.0 ml/min 02/03/19 20:11 BUN/Creatinine Ratio 30.9 02/03/19 20:11 Glucose 132 mg/dL (70-105) H 02/03/19 20:11 POC Glucose 132 MG/DL (70 - 105) H 02/16/19 17:15 Calcium 8.8 mg/dL (8.6-10.3) 02/03/19 20:11 Total Bilirubin 0.4 mg/dL (0.3-1.0) 02/03/19 20:11 AST 15 U/L (13-39) 02/03/19 20:11 ALT 17 U/L (7-52) 02/03/19 20:11 Alkaline Phosphatase 131 U/L (34-104) H 02/03/19 20:11 B-Natriuretic Peptide 210.0 pg/mL (5.0-100.0) H 02/03/19 20:11 Total Protein 6.4 gm/dL (6.0-8.3) 02/03/19 20:11 Albumin 3.5 gm/dL (4.2-5.5) L 02/03/19 20:11 Globulin 2.9 gm/dL 02/03/19 20:11 Albumin/Globulin Ratio 1.2 (1.0-1.8) 02/03/19 20:11 Triglycerides 110 mg/dL (<150) 02/03/19 20:11 Cholesterol 94 mg/dL (<200) 02/03/19 20:11 LDL Cholesterol Direct 47 mg/dL (75-193) L 02/03/19 20:11 HDL Cholesterol 28 mg/dL (23-92) 02/03/19 20:11 TSH 0.93 uIU/ml (0.34-5.60) 02/03/19 20:11 RPR NONREACTIVE (NONREACTIVE) 02/03/19 20:11 - Physical Exam Vitals and I&O: Vital Signs Temp 97.6 F 02/16/19 06:04 Pulse 99 02/16/19 08:49 Resp 19 02/16/19 12:13 BP 112/55 02/16/19 06:04 Pulse Ox 98 02/16/19 08:49 Intake & Output 02/15/19 02/16/19 02/16/19 18:59 06:59 18:59 Intake Total 2019 535 9989 Balance 2674 056 5580 Weight (lbs) 210 lb Intake: Oral 4158 907 7764 Other: # Voids 4 3 # Bowel Movements 1 0 1 Stool Characteristics Formed Brown Weight Source Bedscale Active Medications: Current Medications Acetaminophen (Tylenol) 650 mg PO Q6HR PRN PRN Reason: Pain (Moderate) Stop: 04/04/19 22:01 Acetaminophen (Tylenol Extra Strength) 500 mg PO Q4HR PRN PRN Reason: Pain (Mild) Stop: 04/04/19 22:01 Albuterol/Ipratropium (Duoneb Neb) 3 ml HHN Q6HRT PRN PRN Reason: Shortness of Breath Stop: 04/04/19 22:01 Last Admin: 02/08/19 07:06 Dose: 3 ml Allopurinol (Zyloprim) 100 mg PO DAILY [facility] Stop: 04/05/19 08:59 Last Admin: 02/16/19 09:21 Dose: 100 mg Aripiprazole (Abilify) 20 mg PO DAILY [facility]; Protocol Stop: 04/10/19 08:59 Last Admin: 02/16/19 09:20 Dose: 20 mg Aspirin (Aspirin Chewable) 81 mg PO DAILY [facility] Stop: 04/05/19 08:59 Last Admin: 02/16/19 09:21 Dose: 81 mg Atorvastatin Calcium (Lipitor) 60 mg PO HS [facility] Stop: 04/04/19 22:59 Last Admin: 02/15/19 21:05 Dose: 60 mg Budesonide (Pulmicort) 0.5 mg HHN BID [facility] Stop: 04/05/19 08:59 Last Admin: 02/16/19 08:48 Dose: 0.5 mg Buspirone HCl (Buspar) 15 mg PO BID [facility] Stop: 04/10/19 08:59 Last Admin: 02/16/19 16:57 Dose: 15 mg Citalopram Hydrobromide (Celexa) 40 mg PO DAILY [facility] Stop: 04/06/19 08:59 Last Admin: 02/16/19 09:21 Dose: 40 mg Dextrose (D50w) 50 ml IVP PRN PRN PRN Reason: BS below 70 & not tolerate po Stop: 04/04/19 22:26 Dextrose (Glutose 40%) 18.75 gm PO PRN PRN PRN Reason: Blood Glucose less than 70 Stop: 04/04/19 22:26 Docusate Sodium (Colace) 100 mg PO DAILY [facility] Stop: 04/06/19 08:59 Last Admin: 02/16/19 09:21 Dose: 100 mg Ferrous Sulfate (Iron) 325 mg PO DAILY [facility] Stop: 04/05/19 08:59 Last Admin: 02/16/19 09:21 Dose: 325 mg Finasteride (Proscar) 5 mg PO DAILY [facility]; Protocol Stop: 04/05/19 08:59 Last Admin: 02/16/19 09:20 Dose: 5 mg Glucagon (Glucagen) 1 mg IM PRN PRN PRN Reason: BS below 70&dextrose ineffecti Stop: 04/04/19 22:26 Insulin Human Lispro (Humalog Insulin Sliding Scale) 0 units SUBQ ACHS [facility]; Protocol Stop: 04/05/19 07:29 Last Admin: 02/16/19 11:57 Dose: Not Given Isosorbide Mononitrate (Imdur) 60 mg PO DAILY [facility] Stop: 04/06/19 08:59 Last Admin: 02/16/19 09:20 Dose: Not Given Lorazepam (Ativan) 0.5 mg PO Q4HR PRN; Protocol PRN Reason: Anxiety Stop: 03/05/19 21:42 Last Admin: 02/16/19 09:20 Dose: 0.5 mg Magnesium Oxide (Mag-Oxide) 400 mg PO BID [facility] Stop: 04/05/19 08:59 Last Admin: 02/16/19 16:58 Dose: 400 mg Metoprolol Tartrate (Lopressor) 25 mg PO BID [facility] Stop: 04/05/19 08:59 Last Admin: 02/16/19 16:57 Dose: Not Given Nitroglycerin (Nitrostat) 0.4 mg SL Q5MIN PRN PRN Reason: Chest Pain Pantoprazole Sodium (Protonix) 40 mg PO QDAC [facility] Stop: 04/06/19 07:29 Last Admin: 02/16/19 06:55 Dose: 40 mg Potassium Chloride (Klor-Con) 20 meq PO DAILY [facility] Stop: 04/05/19 08:59 Last Admin: 02/16/19 09:21 Dose: 20 meq Rivastigmine (Exelon 4.6 Mg/24 Hr Tdm) 1 patch TD DAILY [facility] Stop: 04/06/19 08:59 Last Admin: 02/16/19 09:19 Dose: 1 patch Tamsulosin HCl (Flomax) 0.8 mg PO HS [facility] Stop: 04/05/19 20:59 Last Admin: 02/15/19 21:06 Dose: 0.8 mg Vitamin D (Vitamin D) 400 iu PO DAILY [facility] Stop: 04/05/19 08:59 Last Admin: 02/16/19 09:21 Dose: 400 iu Zolpidem Tartrate (Ambien) 5 mg PO HS PRN PRN Reason: Insomnia Stop: 04/04/19 21:42 Last Admin: 02/15/19 21:07 Dose: 5 mg General: demented, obese, NAD HEENT: NC/AT Neck: Supple, No JVD Lungs: CTAB Cardiovascular: other (hx afib) Abdomen: soft, non-tender Extremities: clear Neurological: no change, alert Internal Medicine Assmt/Plan - Assessment Assessment: Aggressive behavior of striking staff and episodes of hitting himself. Hypertension. Diabetes. CAD. CHF. asthma. COPD. CVA. Dementia/Confusion. Anemia. Hx of TIA. Hx of Left arm fracture. Hx of BPH. Hx of Angina. - Plan Plan: Continue plan of care. Monitor Vitals and behavior. Continue inpatient psychi. Safety precaution. Supportive care. Fall precaution, frequent nursing rounds, and as needed restraints to prevent fall. Continue collaborating with consulting specialists, case management and nursing team. Will Monitor patient and continue current treatment plan as ordered. Nutritional Asmnt/Malnutr-PDOC - Dietary Evaluation Malnutrition Findings (Please click <Entered> for more info): Nutritional Asmnt/Malnutrition Start: 02/08/19 18: 36 Text: Status: Active Freq: Protocol: Document 02/08/19 18:37 [email or web address] (Rec: 06/17/19 18:45 [email or web address]) Nutritional Asmnt/Malnutrition Patient General Information Nutritional Screening Moderate Risk Diagnosis Psychosis & Bipolar Disorder Pertinent Medical Hx/Surgical Hx HTN, DM, CAD, Asthma/COPD, CVA /TIA, Dementia, Anemia bph afib Subjective Information Pt seen in dining room at time of visit. Pt is confused and is unable to answer any questions. 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 Reports tolerating diet, no chew/swallow difficulty. Per chart, PO intake 100-100- 100% for 3 meals on 02/07. Current Diet Order/ Nutrition Support [facility], VICKI Pertinent Medications Lipitor, D50W, Glutose 40%, Colace, Iron, Glucagen, INS-SS , Mag-oxide, Lopressor Pertinent Labs 02/07 POC Glu 132, 151 02/08 POC Glu 107, 187 Nutritional Hx/Data Height 5 ft 6 in Height (Calculated Centimeters) 167.6 Current Weight (lbs) 210 lb Weight (Calculated Kilograms) 95.3 Weight (Calculated Grams) 35309.4 [place] Body Weight 63.8 kg Body Mass Index (BMI) 33.9 Weight Status Obese GI Symptoms GI Symptoms None Last BM 02/06 Skin Integrity/Comment: Fredy 14, intact Current %PO Good (75-100%) Estimated Nutritional Goals BEE in Kcals: Adj wt of IBW Calories/Kcals/Kg 23-27 Kcals Calculated 6020-8391 Protein: Adj wt of IBW Protein g/k.8-1 Protein Calculated 61-76 Fluid: ml 8330-5301 Nutritional Problem 1. Problem Problem Altered nutrition related lab values R/T medical condition AEB POC glucose 107-187 Intervention/Recommendation Comments 1.Continue with [facility] diet as ordered 2.Monitor PO intake, wt, labs and skin integrity 3.F/U as low risk in 7 days Expected Outcomes/Goals Expected Outcomes/Goals 1. PO intake to meet at least 75% of nutritional needs. 2. Wt stability, skin to remain intact, labs to approach WNL. Kelly Jacinto, MPH, RDN
[2019-02-16] MEDS: Atorvastatin Calcium 10 MG TAB PO SCH (20:53)
--- NOTE | 2019-02-16 23:52 | Progress Notes ---
DATE: 02/16/2019 SUBJECTIVE: Case was discussed with staff of the patient, reviewed records. The patient continues to be unpredictable, impulsive. He continues to have episodes of agitation and aggressive behavior, irritable. He stays to himself. He has been compliant with the medication with no side effects, no sedation, no nausea, and no extrapyramidal symptoms. We will continue to work with the patient in group therapy, milieu therapy, and adjust medications as needed. JOB# [id number]
[2019-02-17] MEDS: INSULIN LISPRO SLIDING SCALE 100 UNITS/ML UNIT SUBQ SCH ×2 (06:43→11:55)
[2019-02-17] MEDS: Pantoprazole 40 mg/Packet PO SCH (06:43)
[2019-02-17] MEDS: Budesonide 0.5 Mg/2 mL Ud HHN SCH (06:59)
[2019-02-17] MEDS: Aspirin 81mg Chewable Tab PO SCH (09:23)
[2019-02-17] MEDS: Potassium Chloride 20 mEq ER Tab PO SCH (09:23)
[2019-02-17] MEDS: Ferrous Sulfate 325 MG TAB PO SCH (09:23)
[2019-02-17] MEDS: Rivastigmine 4.6 mg/24 hr Tdm TD SCH (09:24)
--- NOTE | 2019-02-17 15:04 | Internal Medicine Prog Note ---
Internal Medicine Subjective - Subjective Service Date: 02/17/19 Patient seen and examined:: with staff Patient is:: awake, verbal, in bed, agitated Patient Complaints of:: other (Patient was admitted for agitation and for striking staff.) Per staff patient has:: no adverse event, no episodes of fall Internal Medicine Objective - Results Result Diagrams: 02/03/19 20:11 02/03/19 20:11 Recent Labs: Laboratory Last Values WBC 9.0 Th/cmm (4.8-10.8) 02/03/19 20:11 RBC 3.84 Mil/cmm (3.80-5.80) 02/03/19 20:11 Hgb 11.6 gm/dL (12-16) L 02/03/19 20:11 Hct 34.9 % (41.0-60) L 02/03/19 20:11 MCV 90.7 fl (80-99) 02/03/19 20:11 MCH 30.3 pg (27.0-31.0) 02/03/19 20:11 MCHC Differential 33.4 pg (28.0-36.0) 02/03/19 20:11 RDW 14.2 % (11.5-20.0) 02/03/19 20:11 Plt Count 152 Th/cmm (150-400) 02/03/19 20:11 MPV 9.7 fl 02/03/19 20:11 Neutrophils % 57.3 % (40.0-80.0) 02/03/19 20:11 Lymphocytes % 30.1 % (20.0-50.0) 02/03/19 20:11 Monocytes % 8.6 % (2.0-10.0) 02/03/19 20:11 Eosinophils % 3.6 % (0.0-5.0) 02/03/19 20:11 Basophils % 0.4 % (0.0-2.0) 02/03/19 20:11 Sodium 138 mEq/L (136-145) 02/03/19 20:11 Potassium 4.0 mEq/L (3.5-5.1) 02/03/19 20:11 Chloride 105 mEq/L (98-107) 02/03/19 20:11 Carbon Dioxide 25.2 mEq/L (21.0-31.0) 02/03/19 20:11 Anion Gap 11.8 (7.0-16.0) 02/03/19 20:11 BUN 34 mg/dL (7-25) H 02/03/19 20:11 Creatinine 1.1 mg/dL (0.7-1.3) 02/03/19 20:11 Est GFR ( Amer) > 60.0 ml/min (>90) 02/03/19 20:11 Est GFR (Non-Af Amer) > 60.0 ml/min 02/03/19 20:11 BUN/Creatinine Ratio 30.9 02/03/19 20:11 Glucose 132 mg/dL (70-105) H 02/03/19 20:11 POC Glucose 117 MG/DL (70 - 105) H 02/17/19 11:52 Calcium 8.8 mg/dL (8.6-10.3) 02/03/19 20:11 Total Bilirubin 0.4 mg/dL (0.3-1.0) 02/03/19 20:11 AST 15 U/L (13-39) 02/03/19 20:11 ALT 17 U/L (7-52) 02/03/19 20:11 Alkaline Phosphatase 131 U/L (34-104) H 02/03/19 20:11 B-Natriuretic Peptide 210.0 pg/mL (5.0-100.0) H 02/03/19 20:11 Total Protein 6.4 gm/dL (6.0-8.3) 02/03/19 20:11 Albumin 3.5 gm/dL (4.2-5.5) L 02/03/19 20:11 Globulin 2.9 gm/dL 02/03/19 20:11 Albumin/Globulin Ratio 1.2 (1.0-1.8) 02/03/19 20:11 Triglycerides 110 mg/dL (<150) 02/03/19 20:11 Cholesterol 94 mg/dL (<200) 02/03/19 20:11 LDL Cholesterol Direct 47 mg/dL (75-193) L 02/03/19 20:11 HDL Cholesterol 28 mg/dL (23-92) 02/03/19 20:11 TSH 0.93 uIU/ml (0.34-5.60) 02/03/19 20:11 RPR NONREACTIVE (NONREACTIVE) 02/03/19 20:11 - Physical Exam Vitals and I&O: Vital Signs Temp 97.6 F 02/17/19 06:41 Pulse 84 02/17/19 06:59 Resp 18 02/17/19 08:00 BP 118/66 02/17/19 06:41 Pulse Ox 97 02/17/19 06:59 Intake & Output 02/16/19 02/17/19 02/17/19 18:59 06:59 18:59 Intake Total 1100 120 Balance 1100 120 Intake: Oral 1100 120 Other: # Voids 2 # Bowel Movements 1 0 Stool Characteristics Formed Brown Active Medications: Current Medications Acetaminophen (Tylenol) 650 mg PO Q6HR PRN PRN Reason: Pain (Moderate) Stop: 04/04/19 22:01 Acetaminophen (Tylenol Extra Strength) 500 mg PO Q4HR PRN PRN Reason: Pain (Mild) Stop: 04/04/19 22:01 Albuterol/Ipratropium (Duoneb Neb) 3 ml HHN Q6HRT PRN PRN Reason: Shortness of Breath Stop: 04/04/19 22:01 Last Admin: 02/08/19 07:06 Dose: 3 ml Allopurinol (Zyloprim) 100 mg PO DAILY [facility] Stop: 04/05/19 08:59 Last Admin: 02/17/19 09:23 Dose: 100 mg Aripiprazole (Abilify) 20 mg PO DAILY [facility]; Protocol Stop: 04/10/19 08:59 Last Admin: 02/17/19 09:22 Dose: 20 mg Aspirin (Aspirin Chewable) 81 mg PO DAILY [facility] Stop: 04/05/19 08:59 Last Admin: 02/17/19 09:23 Dose: 81 mg Atorvastatin Calcium (Lipitor) 60 mg PO HS [facility] Stop: 04/04/19 22:59 Last Admin: 02/16/19 20:53 Dose: 60 mg Budesonide (Pulmicort) 0.5 mg HHN BID [facility] Stop: 04/05/19 08:59 Last Admin: 02/17/19 06:59 Dose: 0.5 mg Buspirone HCl (Buspar) 15 mg PO BID [facility] Stop: 04/10/19 08:59 Last Admin: 02/17/19 09:22 Dose: 15 mg Citalopram Hydrobromide (Celexa) 40 mg PO DAILY [facility] Stop: 04/06/19 08:59 Last Admin: 02/17/19 09:22 Dose: 40 mg Dextrose (D50w) 50 ml IVP PRN PRN PRN Reason: BS below 70 & not tolerate po Stop: 04/04/19 22:26 Dextrose (Glutose 40%) 18.75 gm PO PRN PRN PRN Reason: Blood Glucose less than 70 Stop: 04/04/19 22:26 Docusate Sodium (Colace) 100 mg PO DAILY [facility] Stop: 04/06/19 08:59 Last Admin: 02/17/19 09:23 Dose: 100 mg Ferrous Sulfate (Iron) 325 mg PO DAILY [facility] Stop: 04/05/19 08:59 Last Admin: 02/17/19 09:23 Dose: 325 mg Finasteride (Proscar) 5 mg PO DAILY [facility]; Protocol Stop: 04/05/19 08:59 Last Admin: 02/17/19 09:24 Dose: 5 mg Glucagon (Glucagen) 1 mg IM PRN PRN PRN Reason: BS below 70&dextrose ineffecti Stop: 04/04/19 22:26 Insulin Human Lispro (Humalog Insulin Sliding Scale) 0 units SUBQ ACHS [facility]; Protocol Stop: 04/05/19 07:29 Last Admin: 02/17/19 11:55 Dose: Not Given Isosorbide Mononitrate (Imdur) 60 mg PO DAILY [facility] Stop: 04/06/19 08:59 Last Admin: 02/17/19 09:23 Dose: Not Given Lorazepam (Ativan) 0.5 mg PO Q4HR PRN; Protocol PRN Reason: Anxiety Stop: 03/05/19 21:42 Last Admin: 02/16/19 23:24 Dose: 0.5 mg Magnesium Oxide (Mag-Oxide) 400 mg PO BID [facility] Stop: 04/05/19 08:59 Last Admin: 02/17/19 09:24 Dose: 400 mg Metoprolol Tartrate (Lopressor) 25 mg PO BID [facility] Stop: 04/05/19 08:59 Last Admin: 02/17/19 09:24 Dose: Not Given Nitroglycerin (Nitrostat) 0.4 mg SL Q5MIN PRN PRN Reason: Chest Pain Pantoprazole Sodium (Protonix) 40 mg PO QDAC [facility] Stop: 04/06/19 07:29 Last Admin: 02/17/19 06:43 Dose: 40 mg Potassium Chloride (Klor-Con) 20 meq PO DAILY [facility] Stop: 04/05/19 08:59 Last Admin: 02/17/19 09:23 Dose: 20 meq Rivastigmine (Exelon 4.6 Mg/24 Hr Tdm) 1 patch TD DAILY [facility] Stop: 04/06/19 08:59 Last Admin: 02/17/19 09:24 Dose: 1 patch Tamsulosin HCl (Flomax) 0.8 mg PO HS [facility] Stop: 04/05/19 20:59 Last Admin: 02/16/19 20:54 Dose: 0.8 mg Vitamin D (Vitamin D) 400 iu PO DAILY [facility] Stop: 04/05/19 08:59 Last Admin: 02/17/19 09:23 Dose: 400 iu Zolpidem Tartrate (Ambien) 5 mg PO HS PRN PRN Reason: Insomnia Stop: 04/04/19 21:42 Last Admin: 02/16/19 20:55 Dose: 5 mg Physical Exam: Patient remains aggressive and agitated. General: demented, obese, NAD HEENT: NC/AT Neck: Supple, No JVD Lungs: CTAB Cardiovascular: other (hx afib) Abdomen: soft, non-tender Extremities: clear Neurological: no change, alert Internal Medicine Assmt/Plan - Assessment Assessment: Aggressive behavior. Hypertension. Diabetes. CAD. CHF. Asthma. COPD. CVA. Dementia/Confusion. Anemia. Hx of TIA. Hx of Left arm fracture. Hx of BPH. Hx of Angina. - Plan Plan: Continuation of care. Monitor Labs. Continue present meds as directed. Monitor vitals, Continue BP meds as directed. Accu-check daily, Continue DM meds as directed. Respiratory treatments and Pulmonary support prn. Aspiration precaution. Deep suctioning prn. Monitor Diet/Nutritional support. Psych management per Psych. Pain Management. Physical therapy. Occupational therapy. Fall precaution, frequent nursing rounds, and as needed restraints to prevent fall. Safety precaution. Supportive care. Continue collaborating with consulting specialists, case management and nursing team. Will Monitor patient and continue current treatment plan as ordered. Rehabilitation Potential: Nutritional Asmnt/Malnutr-PDOC - Dietary Evaluation Malnutrition Findings (Please click <Entered> for more info): Nutritional Asmnt/Malnutrition Start: 02/08/19 18: 36 Text: Status: Active Freq: Protocol: Document 02/08/19 18:37 [email or web address] (Rec: 02/08/19 18:45 [email or web address]) Nutritional Asmnt/Malnutrition Patient General Information Nutritional Screening Moderate Risk Diagnosis Psychosis & Bipolar Disorder Pertinent Medical Hx/Surgical Hx HTN, DM, CAD, Asthma/COPD, CVA /TIA, Dementia, Anemia bph afib Subjective Information Pt seen in dining room at time of visit. Pt is confused and is unable to answer any questions. Per [employer] (Job), PO intake 100% for lunch today . Reports tolerating diet, no chew/swallow difficulty. Per chart, PO intake 100-100- 100% for 3 meals on 02/07. Current Diet Order/ Nutrition Support CCHO, VICKI Pertinent Medications Lipitor, D50W, Glutose 40%, Colace, Iron, Glucagen, INS-SS , Mag-oxide, Lopressor Pertinent Labs 02/07 POC Glu 132, 151 02/08 POC Glu 107, 187 Nutritional Hx/Data Height 1.68 m Height (Calculated Centimeters) 167.6 Current Weight (lbs) 95.254 kg Weight (Calculated Kilograms) 95.3 Weight (Calculated Grams) 52332.4 [place] Body Weight 63.8 kg Body Mass Index (BMI) 33.9 Weight Status Obese GI Symptoms GI Symptoms None Last BM 02/06 Skin Integrity/Comment: Fredy 14, intact Current %PO Good (75-100%) Estimated Nutritional Goals BEE in Kcals: Adj wt of IBW Calories/Kcals/Kg 23-27 Kcals Calculated Protein: Adj wt of IBW Protein g/k.8-1 Protein Calculated 61-76 Fluid: ml [id number] Nutritional Problem 1. Problem Problem Altered nutrition related lab values R/T medical condition AEB POC glucose 107-187 Intervention/Recommendation Comments [facility], VICKI diet as ordered 2.Monitor PO intake, wt, labs and skin integrity 3.F/U as low risk in 7 days Expected Outcomes/Goals Expected Outcomes/Goals 1. PO intake to meet at least 75% of nutritional needs. 2. Wt stability, skin to remain intact, labs to approach WNL. Kelly Jacinto, MPH, RDN
--- NOTE | 2019-02-19 15:14 | Discharge Summary ---
DATE OF DISCHARGE: 02/17/2019 PATIENT'S AGE: 68. SEX: Male. PHYSICIAN: Dr. Dallas. FINAL DIAGNOSES: PRIMARY DIAGNOSIS: Bipolar disorder, moderate to severe, with psychotic features. MEDICAL DIAGNOSES: 1. Diabetes mellitus. 2. Hypertension. 3. Hypercholesterolemia. REASON FOR HOSPITALIZATION: The patient was admitted to the hospital from [facility] because of increased agitation and confusion and episodes of hitting himself. HOSPITAL COURSE: The patient continued to be in irritable mood and angry. The patient also was depressed. The patient was having episodes of hitting self. The patient also was restless and was resisting care in the beginning of hospitalization. The patient was started on Abilify and the dose adjusted to 20 mg every day and also BuSpar was added in a dose of 15 mg twice a day and Celexa 40 mg every day. Gradually, the patient's affect was brighter. The patient was less irritable and less agitated. The patient also was cooperative with treatment and compliant with taking his medications with no side effects of medications. Physical exam of the patient came as mentioned under Blaine III of final diagnosis. Blood workup was also monitored closely and was basically within normal. AFTER-DISCHARGE PLANS: The patient discharged from the hospital [facility] to [facility]. EXPECTED OUTCOME AFTER DISCHARGE: Fair if the patient continues with his outpatient treatment and follow up with discharge plans. [facility]# [id number]
== END 2019-02-17 16:50 | DRG 885 ==
LOC: ER 19:36 → GERO 21:11
PROVIDERS: ADMIT Psychiatry & Neurology Psychiatry; ATTEND Psychiatry & Neurology Psychiatry
DX: F31.5 Bipolar disorder, current episode depressed, severe, with psychotic features (principal); N17.0 Acute kidney failure with tubular necrosis; I11.0 Hypertensive heart disease with heart failure; E44.0 Moderate protein-calorie malnutrition; I50.9 Heart failure, unspecified; N40.0 Benign prostatic hyperplasia without lower urinary tract symptoms; I48.91 Unspecified atrial fibrillation; E11.9 Type 2 diabetes mellitus without complications; I10 Essential (primary) hypertension; E78.00 Pure hypercholesterolemia, unspecified; J44.9 Chronic obstructive pulmonary disease, unspecified; I25.10 Atherosclerotic heart disease of native coronary artery without angina pectoris; Z86.73 Personal history of transient ischemic attack (TIA), and cerebral infarction without residual deficits
CPT/HCPCS: 36415-UA; 80053-TC; 80061-TC; 82948-90; 83036-90; 83880-TC; 84443-TC; 85025-TC; 86592-TC; 93005; 94760; 97530; X3904; Z7610